=== PATIENT | male | born 1945 | race African-American/Black ===

== ENCOUNTER 2022-05-08 11:04 | Inpatient (IN) | payer MEDICARE, OTHER, SELFPAY ==
[2022-05-08] VITALS (19 sets, daily range): BP systolic 98–120; BP diastolic 54–76; PULSE 59–89; RESP 9–18; TEMP 36.6–36.7; O2SAT 95–100; BMI 25.1
--- NOTE | ~2022-05-08 | CT_ITS ---
EXAMINATION: CT brain wo con DATE: 05/08/2022 12:13 INDICATION: Seizure. TECHNIQUE: Computed tomography (CT) of the head was performed without intravenous contrast. The mA wa s adjusted according to patient size. Iterative reconstruction technique was employed. The dose-lengt h product was 605.33 mGy-cm. COMPARISON: None FINDINGS: There are old infarcts in the joce, bilateral thalami, right basal ganglia, and right inter nal capsule. There are scattered areas of low attenuation in the cerebral white matter. There is no i ntracranial hemorrhage, acute infarction, or abnormal intracranial mass lesion. The ventricles are no rmal in size. There is mild mucosal thickening in the ethmoid sinuses. The mastoid air cells are norm al. IMPRESSION: 1. Old infarcts in the joce, bilateral thalami, right basal ganglia, and right internal capsule. 2. Moderate nonspecific cerebral white matter disease, which likely represents chronic small vessel i schemic disease. Reviewed, dictated and finalized at location A. R CUP HANDLE MACHINE OPERATOR IMPRESSION: 1. Old infarcts in the joce, bilateral thalami, right basal ganglia, and right internal capsule. 2. Moderate nonspecific cerebral white matter disease, which likely represents chronic small vessel ischemic disease.
--- NOTE | ~2022-05-08 | XR_ITS ---
EXAMINATION: XR abdomen NG/feed tube insert DATE: 05/10/2022 23:55 INDICATION: Nasogastric tube placement TECHNIQUE: A supine view of the abdomen and lower chest was obtained for evaluation of feeding tube placement. COMPARISON: None. FINDINGS: There is a gastric tube tip in proximal side port in the body the stomach. There are some gas scatter ed throughout the colon. No dilated loops of gas-filled bowel to suggest obstruction. Mild streaky le ft basilar opacities and favor atelectasis over pneumonia. Heart size is normal. Median sternotomy wi res, ostial markers and mediastinal surgical clips consistent with prior coronary artery bypass graft ing. Dual lead pacemaker seen with leads projecting over the expected locations of the right atrium a nd right ventricle. IMPRESSION: 1. Nasogastric tube in the stomach. Reviewed, dictated and finalized at location A. TURE BANDER
--- NOTE | ~2022-05-08 | XR_ITS ---
EXAMINATION: XR chest 1V portable INDICATION: Transient alteration of awareness TECHNIQUE: Portable AP chest at 1159 hours COMPARISON: None available FINDINGS: The lungs are free of acute opacities. No pleural effusion or pneumothorax. The heart size is normal. Median sternotomy wires and mediastinal surgical clips are seen, likely from prior coronar y artery bypass grafting. A dual-lead cardiac pacemaker of the left chest wall ends with leads in exp ected locations. IMPRESSION: 1. No acute cardiopulmonary abnormality. Reviewed, dictated and finalized at location B. D ADVISOR
--- NOTE | ~2022-05-08 | CT_ITS ---
Non-contrast CT scan of the Abdomen and Pelvis Clinical indication: Status post fall Technique: 5 mm axial scans were obtained through the abdomen and pelvis without intravenous or oral contrast. Dose reduction technique was used on this scan by utilizing automated exposure control and iterative reconstruction technique. The dose-length product (DLP) was 320.88 mGy-cm. Findings: Images through the lung bases reveal minimal pleural fluid bilaterally with mild bibasilar atelectatic change. Probable small hepatic cyst and small calcified hepatic granulomas are noted. Calcified splenic granu baudilio also present. The kidneys, pancreas, gallbladder, and adrenals appear normal. There is no aort ic aneurysm. There is no evidence of bowel obstruction. Images through the pelvis were performed. There is no evidence of ascites or lymphadenopathy. Urinary bladder unremarkable. No pelvic mass seen. Probable small amount of loculated fluid along the course of the right spermatic cord in the right inguinal canal. There is moderate to severe compression fracture deformity of L2, which is acute in appearance. Proba ble minimal loss of height of the superior endplate of T11, age indeterminate. Impression: Acute moderate to severe L2 compression fracture. Minimal compression deformity at the superior endplate of T11, age indeterminate. Small amount of loculated fluid along the course the right spermatic cord, of uncertain clinical sign ificance. Minimal pleural fluid bilaterally. Reviewed, dictated and finalized at [facility]. OR MOBILE DEVELOPER Impression: Acute moderate to severe L2 compression fracture. Minimal compression deformity at the superior endplate of T11, age indeterminat e. Small amount of loculated fluid along the course the right spermatic cord, of u ncertain clinical significance. Minimal pleural fluid bilaterally.
--- NOTE | 2022-05-08 11:52 | ECG_ITS ---
Measurements Intervals [place] Rate: 60 P: 130 NH: 195 QRS: 49 QRSD: 101 T: 35 QT: 416 QTc: 416 Interpretive Statements ELECTRONIC ATRIAL PACEMAKER NONSPECIFIC ST ABNORMALITY ABNORMAL ECG NO PREVIOUS ECG AVAILABLE FOR COMPARISON Electronically Signed On 05-08-2022 16:21:13 LUBE MAN by Edwin Correa M.D.
[2022-05-08 12:44] LABS: Basophils Percent Auto 0.2 % (0.2-1.2); Eosinophils Absolute Auto 0.1 K/mm3 (0-0.3); Hematocrit 32.2 % (42.0-52.0); Hemoglobin 10.5 g/dL (14.0-18.0); Immature Granulocyte Absolute 0.03 K/mm3 (0.00-0.031); Immature Granulocyte Percent A 0.6 % (0-0.5); Lymphocytes Absolute Auto 0.81 K/mm3 (0.9-3.2); Lymphocytes Percent Auto 16.5 % (18.3-44.2); Mean Corpuscular HGB Conc 32.6 g/dl (32-36); Mean Corpuscular Hemoglobin 33.5 pg (26-34); Mean Corpuscular Volume 102.9 fl (80-100); Mean Platelet Volume 8.4 fl (7.4-10.4); Monocytes Absolute Auto 0.4 K/mm3 (0.1-0.6); Monocytes Percent Auto 8.7 % (2.6-8.5); Neutrophils Absolute Auto 3.5 K/mm3 (1.3-6.7); Platelet Count Result 145 k/mm3 (150-375); Red Blood Count 3.13 M/mm3 (4.6-6.20); Red Cell Distribution Width 14.1 % (11.5-14.5); White Blood Count 4.9 K/mm3 (4.5-10.0)
[2022-05-08 12:51] LABS: Lactic Acid Reflex 1.2 mmol/L (0.7-2.0)
[2022-05-08 12:52] LABS: Alanine Aminotransferase 21 U/L (6-50); Albumin Level 3.2 g/dL (3.5-5.1); Alkaline Phosphatase 109 U/L (38-126); Anion Gap -1 mmol/L (8-16); Aspartate Amino Transferase 29 U/L (17-59); Bilirubin,Total 0.4 mg/dL (0.2-1.3); Blood Urea Nitrogen 6 mg/dL (9-20); Calcium 8.4 mg/dL (8.4-10.2); Carbon Dioxide 33 mmol/L (22-30); Chloride 100 mmol/L (98-107); Estimated Glomerular Filt Rate > 60; Glucose 94 mg/dL (65-110); Magnesium 1.8 mg/dL (1.6-2.3); Potassium 3.9 mmol/L (3.4-5.0); Sodium 132 mmol/L (137-145)
[2022-05-08 12:53] LABS: Ethanol < 10 mg/dL (<10)
[2022-05-08 12:54] LABS: INR 1.1; Prothrombin Time 13.8 Seconds (11.1-14.7)
[2022-05-08 12:55] LABS: Partial Thromboplastin Time 35.2 SECONDS (22.3-36.8)
--- NOTE | 2022-05-08 13:05 | ED.GENADULT ---
HPI - General Adult General Chief complaint: Seizure <Luna Goel MD - Last Filed: 05/08/22 15:36> Stated complaint: seizure, weakness, black stool, blood penis <Luna Goel MD - Last Filed: 05/08/22 15:36> Time Seen by Provider: 05/08/22 11:35 <Luna Goel MD - Last Filed: 05/08/22 15:36> Source: patient, EMS and RN notes reviewed <Luna Goel MD - Last Filed: 05/08/22 15:36> Mode of arrival: EMS <Luna Goel MD - Last Filed: 05/08/22 15:36> Limitations: dementia <Luna Goel MD - Last Filed: 05/08/22 15:36> History of Present Illness HPI narrative: This is a 77 year old male who presents from snf for evaluation of multiple complaints. EMS reports that patient had seizure lasting 45 seconds at facility. They also report patient has weakness and nursing saw patient had small amount of blood at his urethral meatus. They also reports dark stools. Patien is alert and oriented x 3 . PAtient is poor historian . <Luna Goel MD - Last Filed: 05/08/22 15:36> This is a 77 year old male who presents from snf for evaluation of multiple complaints. EMS reports that patient had seizure lasting 45 seconds at facility. They also report patient has weakness and nursing saw patient had small amount of blood at his urethral meatus. They also reports dark stools. Patien is alert and oriented x 3 . PAtient is poor historian . I was able to speak to the snf staff who told me that the patient was sitting on a wheelchair, and during nurse practitioner evaluation patient blacked out, unresponsive, clammy, no seizure-like activities, patient was able to cannulate back slowly to normal within few seconds. Blood pressure was 88/44 at that time few minutes later blood pressure got better up to 114/70. Currently patient denying any symptoms. The noticed that the patient had black stool over the last few days, the snf staff did not see that. Patient on iron supplement. <Iona Artuhr MD - Last Filed: 05/08/22 15:44> Related Data Home medications: Home Medications Medication Instructions Recorded Confirmed docusate sodium 100 mg capsule 100 mg PO DAILY 05/03/22 donepezil 10 mg tablet 10 mg PO QHS 05/03/22 ferrous sulfate 325 mg (65 mg 325 mg PO DAILY 05/03/22 iron) tablet furosemide 40 mg tablet 40 mg PO QAM 05/03/22 levothyroxine 150 mcg capsule 150 mcg PO DAILY 05/03/22 losartan 25 mg tablet 25 mg PO DAILY 05/03/22 memantine 5 mg tablet 5 mg PO BID 05/03/22 mirabegron 50 mg tablet,extended 50 mg PO DAILY 05/03/22 release 24 hr montelukast 10 mg tablet 10 mg PO DAILY 05/03/22 oxcarbazepine 150 mg tablet 150 mg PO BID 05/03/22 potassium chloride 20 mEq oral 20 meq PO DAILY 05/03/22 packet (Klor-Con) ropinirole 1 mg tablet 1 mg PO BID 05/03/22 rosuvastatin 40 mg tablet 40 mg PO DAILY 05/03/22 tamsulosin 0.4 mg capsule 0.4 mg PO DAILY 05/03/22 valacyclovir 1 gram tablet 1,000 mg PO DAILY 05/03/22 <Luna Goel MD - Last Filed: 05/08/22 15:36> Allergies/adverse reactions: Allergies Allergy/AdvReac Type Severity Reaction Status Date / Time No Known Allergies Allergy Unverified 05/03/22 15:18 <Luna Goel MD - Last Filed: 05/08/22 15:36> Review of Systems Review of Systems: All systems reviewed & are unremarkable except as noted in HPI and below <Iona Arthur MD - Last Filed: 05/08/22 15:44> [facility] Past Medical History Medical History: Medical History (Updated 05/08/22 @ 15:37 by Iona Arthur MD) Dementia Hypertension <Luna Goel MD - Last Filed: 05/08/22 15:36> Surgical History Surgical History: Surgical History (Updated 05/08/22 @ 15:35 by Luna Goel MD) Surgical history unknown <Luna Goel MD - Last Filed: 05/08/22 15:36> Social History Social History: Social History (Reviewed 05/08/22 @ 14:34 by [facility]
[2022-05-08 13:47] LABS: Appearance Urine Clear (Clear); Bilirubin Urine Negative (Negative); Blood Urine Trace-intact (Negative); Color Urine Yellow (Yellow); Glucose Urine UA Negative (Negative); Ketones Urine Negative (Negative); Leukocyte Esterase Ur 1+ LEU/UL (Negative); Nitrate Urine Negative (Negative); Protein Urine Trace mg/dL (Negative)
[2022-05-08 13:58] LABS: Mucus Urine Rare /lpf; WBC Urine 51-75 /hpf
[2022-05-08 14:02] LABS: Amphetamine Screen Urine Negative (Negative); Barbiturate Screen Urine Negative (Negative); Benzodiazepines Screen Urine Negative (Negative); Cannabinoid Screen Urine Negative (Negative); Cocaine Screen Urine Negative (Negative); Methadone Screen Urine Negative (Negative); Opiate Screen Urine Negative (Negative); Phencyclidine Screen Urine Negative (Negative)
[2022-05-08 14:26] LABS: Add Urine Microscopic? YES
[2022-05-08 15:34] LABS: Influenza A QL RT-PCR Negative (Negative); Influenza B QL RT-PCR Negative (Negative); SARS-CoV-2 RNA PCR Negative
--- NOTE | 2022-05-08 15:58 | PC.NURSE ---
pts states she does not want to return to group home after d/c from hospital.
[2022-05-08 17:04] LABS: Hematocrit 31.3 % (42.0-52.0); Hemoglobin 10.3 g/dL (14.0-18.0)
[2022-05-08] MEDS: SODIUM CHLORIDE 0.9% IV 1,000 ML 250 ML IV CONT ×2 (17:58→20:27)
--- NOTE | 2022-05-08 22:05 | PM.IMHP ---
H&P: HPI History of Present Illness Date/Time: 05/08/22 22:05 Chief Complaint: Weakness, black stools, bloody penis, and possible seizure Narrative: This is a 77-year-old male patient who resides at [facility] and he has a very poor historian. The patient stated that he did have blood coming from his penis today. EMS reported that the patient had a seizure lasting 45 seconds at the facility. The patient stated that he has been feeling very weak. The [place] [facility] also noticed that the patient had dark stools. Is reported that the patient is typically a lower on orientated x3. However he is not able to give me much information. The patient tells me that he is at the hospital today because he had blood on his penis. ER provider spoke with the [place] [facility] staff and the patient had been sitting in a wheelchair and was seeing the nurse practitioner who evaluated the patient for the black out. The patient was unresponsive clammy and had no seizure-like activity. His blood pressure was noted to be 88/44 at that time. The noticed that the patient had black stools over the last few days however the nursing staff did not notice it. The patient is on iron supplement. Initial H&H 10.5 and 32.2 repeat H&H was 10.3 and 31.3. And the current H&H was 11.0 in 33.2. Sodium is 132. Patient had 1+ leukocyte esterase and 51-75 wbc's. The patient had a negative tox screen. Influenza A/B and COVID are negative. The patient was given Keppra IV. He was started on IV fluids and Rocephin as well. The patient is being admitted to observation status on the date of service of 05/08/2022 Review of Systems Review of Systems: See HPI All systems reviewed & are unremarkable except as noted in HPI and below Constitutional: Constitutional: Reports as per HPI and Reports no additional constitutional complaints Eyes: Eyes: Reports as per HPI and Reports no additional eye complaints ENT: Reports system reviewed and no additional complaints, except as documented and Reports Normal hearing present Cardiovascular: Cardiovascular: Reports no additional cardiovascular complaints Respiratory: Respiratory: Reports no additional respiratory complaints and Reports no additional respiratory complaints Gastrointestinal: Gastrointestinal: Reports as per HPI and Reports no additional gastrointestinal complaints Musculoskeletal: Musculoskeletal: Reports no additional musculoskeletal complaints Integumentary/Breasts: Skin/Breast: Reports system reviewed and no additional complaints, except as docu and Reports as per HPI Neurologic: Reports system reviewed and no additional complaints, except as documented, Reports as per HPI and Reports Normal hearing present Psychiatric: Psychiatric: Reports no additional psychiatric complaints and Reports as per HPI Endocrine: Endocrine: Reports no additional endocrine complaints Hematologic/Lymphatic: Hematologic/Lymphatic: Reports no additional hematologic/lymphatic complaints Allergic/Immunologic: Allergic/Immunologic: Reports no additional allergic/immunologic complaints [facility] Past Medical History Medical History (Updated 05/09/22 @ 01:47 by Praveena Vasquez NP) BPH (benign prostatic hyperplasia) Compression fracture of L2 Dementia History of CVA (cerebrovascular accident) Hyperlipidemia Hypertension Hypothyroidism Parkinson's disease Restless leg syndrome Seizure Surgical History Surgical History (Updated 05/08/22 @ 15:35 by Luna Goel MD) Surgical history unknown Family History Family History Father Myocardial infarction Social History Social History (Updated 05/09/22 @ 01:29 by Praveena Vasquez NP) Social History: The patient resides at [facility] and he is . The patient has 2 children. He is retired from the [employer]. Code status DNR Smoking status: Unknown if ever smoked Alcohol intake: never Substanc
[2022-05-08 22:27] LABS: Hematocrit 33.2 % (42.0-52.0)
[2022-05-09] VITALS (14 sets, daily range): BP systolic 70–117; BP diastolic 40–64; PULSE 58–63; RESP 16–18; TEMP 36.3–36.7; O2SAT 98–100
--- NOTE | 2022-05-09 | ECHO_ITS ---
Patient Info Name: Dago Krause Age: 77 years : 1945 Gender: Male Ht: 68 in Wt: 165 lbs BSA: 1.90 m2 HR: 60 bpm BP: 116 / 64 mmHg Heart Rhythm: Sinus Rhythm Technical Quality: Good Exam Date: 05/09/2022 2:57 PM Exam Location: [facility] Card Pulmonary Patient Status: Inpatient Admit Date: 05/08/2022 Staff Ordering Physician: Gianna Caceres MD Capacitor Repairer: Marlene Olivia RDCS Attending Provider: Matilde Damon MD Exam Type: CA echo doppler color flow Study Info Indications R55 - Syncope and collapse Complete two-dimensional, color flow and Doppler transthoracic echocardiogram is performed. Summary 1. Complete two-dimensional, color flow and Doppler transthoracic echocardiogram is performed. 2. Left ventricular chamber dimension is normal. 3. Left ventricular systolic function is normal, estimated at 65-70%. 4. There is mildly increased left ventricular wall thickness. 5. The left ventricular diastolic function is grade I diastolic dysfunction. 6. There is trace mitral valve regurgitation. 7. There is trace tricuspid valve regurgitation. Left Ventricle Left ventricular chamber dimension is normal. Left ventricular systolic function is normal, estimated at 65-70%. There is mildly increased left ventricular wall thickness. The left ventricular diastolic function is grade I diastolic dysfunction. Right Ventricle Right ventricular chamber dimension is normal. Left Atria Left atrial chamber dimension is normal. Right Atria Right atrial chamber dimension is normal. Atrial Septum Intact interatrial septum visualized by color flow imaging. Aortic Valve The aortic valve is trileaflet. There is mild aortic valve sclerosis. There is no aortic valve stenosis. There is no aortic valve regurgitation. Pulmonic Valve The pulmonic valve is not well visualized. There is no pulmonic regurgitation. Mitral Valve The mitral valve has normal leaflets. There is no mitral valve stenosis. There is trace mitral valve regurgitation. Tricuspid Valve There is no significant tricuspid valve stenosis. There is trace tricuspid valve regurgitation. Pericardium/Pleural There is no pericardial effusion. Aorta The aortic root size at the sinus of Valsalva is normal. Left Ventricular Outflow Tract Name Value Normal LVOT 2D LVOT Diameter 2.0 cm LVOT Doppler LVOT Peak Gradient 3 mmHg LVOT Mean Gradient 2 mmHg LVOT VTI 16 cm LVOT VTI/AV VTI Ratio 0.7 LVOT Stroke Volume 47 ml LVOT CO 2.8 l/min LVOT CI 1.5 l/min/m2 Pulmonic Valve Name Value Normal RVOT Doppler RVOT Peak Gradient 4 mmHg PV Doppler ---
[2022-05-09] MEDS: LEVOTHYROXINE SODIUM 75 MCG TABLET 150 MCG PO (05:48)
[2022-05-09] MEDS: SODIUM CHLORIDE 0.9% IV 1,000 ML 125 ML IV CONT (05:51)
[2022-05-09 06:06] LABS: Basophils Percent Auto 0.2 % (0.2-1.2); Eosinophils Absolute Auto 0.1 K/mm3 (0-0.3); Eosinophils Percent Auto 2.7 % (0-4.4); Hematocrit 33.4 % (42.0-52.0); Hemoglobin 10.9 g/dL (14.0-18.0); Immature Granulocyte Absolute 0.02 K/mm3 (0.00-0.031); Immature Granulocyte Percent A 0.5 % (0-0.5); Lymphocytes Percent Auto 22.5 % (18.3-44.2); Mean Corpuscular HGB Conc 32.6 g/dl (32-36); Mean Corpuscular Hemoglobin 33.1 pg (26-34); Mean Corpuscular Volume 101.5 fl (80-100); Mean Platelet Volume 8.4 fl (7.4-10.4); Monocytes Absolute Auto 0.4 K/mm3 (0.1-0.6); Monocytes Percent Auto 9.2 % (2.6-8.5); Neutrophils Absolute Auto 2.9 K/mm3 (1.3-6.7); Neutrophils Percent Auto 64.9 % (45.5-73.1); Platelet Count Result 146 k/mm3 (150-375); Red Blood Count 3.29 M/mm3 (4.6-6.20); White Blood Count 4.4 K/mm3 (4.5-10.0)
[2022-05-09 06:22] LABS: Alanine Aminotransferase 29 U/L (6-50); Alkaline Phosphatase 105 U/L (38-126); Anion Gap 0 mmol/L (8-16); Aspartate Amino Transferase 27 U/L (17-59); Bilirubin,Total 0.5 mg/dL (0.2-1.3); Blood Urea Nitrogen 5 mg/dL (9-20); Calcium 8.5 mg/dL (8.4-10.2); Carbon Dioxide 33 mmol/L (22-30); Chloride 101 mmol/L (98-107); Estimated CRCL calculation 65 ml/min; Estimated Glomerular Filt Rate > 60; Glucose 74 mg/dL (65-110); Magnesium 1.9 mg/dL (1.6-2.3); Potassium 3.7 mmol/L (3.4-5.0); Sodium 134 mmol/L (137-145)
[2022-05-09] MEDS: OXcarbazepine 150 MG TABLET PO ×2 (09:49→21:09)
[2022-05-09] MEDS: MIRABEGRON 50 MG ER TABLET PO (09:49)
[2022-05-09] MEDS: ESCITALOPRAM OXALATE 10 MG TABLET PO (09:49)
[2022-05-09] MEDS: polyethylene glycoL 3350 17 GM POWD.PACK PO (09:49)
[2022-05-09] MEDS: CARBIDOPA/LEVODOPA 10/100 MG TABLET 1 TABLET PO ×2 (09:49→17:58)
[2022-05-09] MEDS: QUEtiapine FUMARATE 12.5 MG TABLET PO (09:49)
[2022-05-09] MEDS: ASPIRIN 81 MG ENTERIC TABLET PO (09:49)
[2022-05-09] MEDS: CYANOCOBALAMIN 1,000 MCG TABLET 1000 MCG PO (09:49)
[2022-05-09] MEDS: MONTELUKAST SODIUM 10 MG TABLET PO (09:49)
[2022-05-09] MEDS: AMANTADINE HCL 100 MG CAPSULE PO (09:50)
[2022-05-09] MEDS: MEMANTINE 5 MG TABLET PO ×2 (09:50→17:58)
[2022-05-09] MEDS: rOPINIRole HCL 1 MG TABLET PO ×2 (09:50→17:59)
[2022-05-09] MEDS: CHOLECALCIFEROL 1,000 UNITS TABLET 5000 UNITS PO (09:50)
[2022-05-09] MEDS: carvediloL 3.125 MG TABLET PO ×2 (09:50→17:57)
[2022-05-09] MEDS: valACYclovir HCL 500 MG TABLET 1000 MG PO (09:51)
[2022-05-09] MEDS: ROSUVASTATIN 10 MG TABLET 40 MG PO (09:51)
[2022-05-09] MEDS: OMEGA 3 POLYUNSAT FATTY ACIDS 1 GM CAP PO ×2 (09:51→17:58)
[2022-05-09] MEDS: TAMSULOSIN HCL 0.4 MG CAPSULE PO (09:52)
[2022-05-09] MEDS: DOCUSATE SODIUM 100 MG CAPSULE PO (09:52)
[2022-05-09] MEDS: POTASSIUM CHLORIDE 20 MEQ PACKET (FOR LIQUID) PO (09:52)
[2022-05-09] MEDS: SODIUM CHLORIDE 0.9% IV 1,000 ML 75 ML IV CONT (09:54)
--- NOTE | 2022-05-09 11:51 | WPDNEURCNPN ---
Assessment and Plan Assessment and plan (1) Parkinson's disease: Code(s): G20 - Parkinson's disease Status: Acute (2) Compression fracture of L2: Code(s): S32.020A - Wedge compression fracture of second lumbar vertebra, initial encounter for closed fracture Status: Acute (3) Seizure: Code(s): R56.9 - Unspecified convulsions Status: Acute Plan history of collapse raising the possibility of general problem versus the seizure and has been found to have UTI does have ongoing history of dementia also has been taking multiple medications using a back brace for the closed lumbar vertebral fracture also carries the diagnosis of Parkinson disease for which he has been taking carbidopa levodopa at this stage I will continue same medication and obtain only the EEG and echocardiogram Consult date: 05/09/22 HPI: Dago Krause is a 77 year old male has been admitted to the hospital through the emergency room where he was transferred from the skilled nursing for the evaluation of multiple complaints particularly an episode of seizure lasting for 45seconds at the facility, his small amount of blood in the urethral meatus with dark stools and also complaints of generalized weakness, his medications were multiple particularly donepezil 10 mg at night furosemide 40 mg daily levothyroxine 150 mg micro g daily losartan 25 mg daily memantine 5 mg twice a day Myrbetriq 50 mg daily oxcarbazepine 150 mg twice a day ropinirole 1 mg twice a day initial evaluation in the emergency room revealed him to have normal vital signs routine CBC was normal except the hemoglobin was 10.5 BMP was borderline low sodium of 132 UA was mildly abnormal with 51 to 75 WBCs and leukocyte esterase of 1+ with the drug screen was negative and EKG was with electronic atrial pacemaker, CT scan of the head documented old infarct in the joce bilateral thalami right basal ganglia and right internal capsule and chest x-ray was negative Review of Systems Review of Systems: All systems reviewed & are unremarkable except as noted in HPI and below [facility] Past Medical History Medical History (Updated 05/09/22 @ 01:47 by Praveena Vasquez NP) BPH (benign prostatic hyperplasia) Compression fracture of L2 Dementia History of CVA (cerebrovascular accident) Hyperlipidemia Hypertension Hypothyroidism Parkinson's disease Restless leg syndrome Seizure Surgical History Surgical History (Updated 05/08/22 @ 15:35 by Luna Goel MD) Surgical history unknown Family History Family History Father Myocardial infarction Social History Social History (Updated 05/09/22 @ 01:29 by Praveena Vasquez NP) Social History: The patient resides at [facility] and he is . The patient has 2 children. He is retired from the [employer]. Code status DNR Smoking status: Unknown if ever smoked Alcohol intake: never Substance use: never Spiritual care concerns: No Meds Home Medications and Allergies Home Medications Medication Instructions Recorded Confirmed Type docusate sodium 100 mg capsule 100 mg PO DAILY 05/03/22 05/08/22 History donepezil 10 mg tablet 10 mg PO QHS 05/03/22 05/08/22 History ferrous sulfate 325 mg (65 mg 325 mg PO DAILY 05/03/22 05/08/22 History iron) tablet levothyroxine 150 mcg capsule 150 mcg PO DAILY 05/03/22 05/08/22 History memantine 5 mg tablet 5 mg PO BID 05/03/22 05/08/22 History mirabegron 50 mg tablet,extended 50 mg PO DAILY 05/03/22 05/08/22 History release 24 hr montelukast 10 mg tablet 10 mg PO DAILY 05/03/22 05/08/22 History oxcarbazepine 150 mg tablet 150 mg PO BID 05/03/22 05/08/22 History potassium chloride 20 mEq oral 20 meq PO DAILY 05/03/22 05/08/22 History packet (Klor-Con) ropinirole 1 mg tablet 1 mg PO BID 05/03/22 05/08/22 History rosuvastatin 40 mg tablet 40 mg PO DAILY 05/03/22 05/08/22 History tamsulosin 0.4 mg capsule 0.4
[2022-05-09] MEDS: FERROUS SULFATE 324 MG TABLET PO (12:29)
--- NOTE | 2022-05-09 12:43 | PM.IMPN ---
Progress Note: A&P Assessment and Plan (1) Hypothyroidism: Code(s): E03.9 - Hypothyroidism, unspecified Status: Acute (2) Parkinson's disease: Code(s): G20 - Parkinson's disease Status: Acute (3) Urinary tract infection: Code(s): N39.0 - Urinary tract infection, site not specified Status: Acute (4) Dementia: Code(s): F03.90 - Unspecified dementia, unspecified severity, without behavioral disturbance, psychotic disturbance, mood disturbance, and anxiety Status: Acute (5) Syncope: Code(s): R55 - Syncope and collapse Status: Acute (6) Seizure: Code(s): R56.9 - Unspecified convulsions Status: Acute Plan 77 years old M with PMH of Dementia presented with blood from penis, black colored stool, ?seizure. 1)?Seizure Episode+?Acute vs chronic Encephalopathy: Patient is very confused, ?baseline with H/o dementia Appreicate Neurology help Plan for EEG CT head showed old ischemic changes on ASA Also has likley UTI, that can cause mental status changes 2)UTI: C/w ceftriaxone Await Urine Culture 3)Black Colored Stool: H/H stable ?Acute vs chronic anemia Await fecal occult blood C/w PPI c/w iron supplement 4)?Seizure vs Syncope: Obtain echo 5)H/o Dementia: c/w Amantadine, Donepezil, Namenda 6)Hypothyroidism: TSH 50 On levothyroxine ?Non compliance with Dementia Await Free T4 7)H/o Compression Fracture: Has back brace 8)DVT ppx: Hep SQ 9)Code;DNR 10)Dispo:pending improvement Time Spent With Patient Time with patient: 25 - 35 minutes Subjective Date/time seen: 05/09/22 12:43 Interval history: patient confused, h/o dementia Review of Systems Review of Systems: ROS unobtainable: Yes unobtainable due to medical condition Exam Const: General: comfortable and no acute distress Other: back brace in situ HENMT: Mouth: Yes moist mucous membranes Eyes: Sclera: sclerae normal Neck: Neck: supple Resp: Effort & Inspection: normal respiratory effort Auscultation: clear to auscultation bilaterally and crackles Cardio: Rate: regular rate Rhythm: regular rhythm GI: GI Palp: Yes Soft to palpation Auscultation: normal bowel sounds Skin: General skin exam: normal color Extrem: General: normal to inspection Objective Data Vital Signs Vital Signs: Vital Signs - 24 hr 05/08/22 15:56 05/08/22 15:57 05/08/22 13:46 Temperature Pulse Rate 63 67 60 Respiratory Rate 11 L Blood Pressure 119/76 98/54 L Pulse Oximetry 100 05/08/22 14:16 05/08/22 14:30 05/08/22 14:54 Temperature Pulse Rate 60 60 60 Respiratory Rate 10 L 10 L 11 L Blood Pressure Pulse Oximetry 100 05/08/22 15:00 05/08/22 16:02 05/08/22 17:26 Temperature Pulse Rate 60 60 60 Respiratory Rate 12 9 L 11 L Blood Pressure 111/68 Pulse Oximetry 100 100 05/08/22 17:31 05/08/22 17:46 05/08/22 18:48 Temperature 98.1 F Pulse Rate 63 61 89 Respiratory Rate 11 L 15 16 Blood Pressure 116/69 120/73 105/65 Pulse Oximetry 95 05/08/22 21:40 05/09/22 05:24 05/08/22 20:00 Temperature 97.8 F 98.1 F Pulse Rate 59 L 58 L 60 Respiratory Rate 18 17 Blood Pressure 120/64 116/64 Pulse Oximetry 100 98 05/09/22 00:00 05/09/22 04:00 05/09/22 09:50 Temperature Pulse Rate 63 60 60 Respiratory Rate Blood Pressure Pulse Oximetry Intake/Output Intake/Output: Intake & Output 05/06/22 05/07/22 05/08/22 05/09/22 23:59 23:59 23:59 23:59 Intake Total 1050 1999 Output Total 50 Balance 1000 1999 Meds/Results Medications: Active Medications Generic Name Dose Route Start Last Admin Trade Name Freq PRN Reason Stop Dose Admin Amantadine HCl 100 mg 05/09/22 09:00 05/09/22 09:50 Amantadine Hcl 100 Mg Capsule PO 100 mg DAILY CARISSA Administration Aspirin 81 mg 05/09/22 09:00 05/09/22 09:49 Aspirin 81 Mg Enteric Tablet PO 81 mg DAILY CARSISA Administration Carbidopa/
[2022-05-09 16:04] LABS: Free T4 Free Thyroxine Reflex 0.34 ng/dL (0.78-2.19)
[2022-05-09 19:45] LABS: IFOB Positive Control Positive; Immunochemical Fecal Occult Bl Positive (N)
[2022-05-09] MEDS: HEPARIN SODIUM 5,000 UNITS/ML VIAL 5000 UNITS SUB-Q (21:08)
[2022-05-09] MEDS: DONEPEZIL HCL 10 MG TABLET PO (21:09)
[2022-05-10] VITALS (15 sets, daily range): BP systolic 100–132; BP diastolic 58–73; PULSE 59–72; RESP 18–20; TEMP 36.1–36.9; O2SAT 91–100
[2022-05-10] MEDS: SODIUM CHLORIDE 0.9% IV 1,000 ML 75 ML IV CONT ×2 (02:58→16:44)
[2022-05-10 05:09] LABS: Basophils Percent Auto 0.5 % (0.2-1.2); Eosinophils Absolute Auto 0.1 K/mm3 (0-0.3); Eosinophils Percent Auto 3.5 % (0-4.4); Hematocrit 34.4 % (42.0-52.0); Hemoglobin 11.2 g/dL (14.0-18.0); Immature Granulocyte Absolute 0.02 K/mm3 (0.00-0.031); Immature Granulocyte Percent A 0.5 % (0-0.5); Lymphocytes Absolute Auto 0.87 K/mm3 (0.9-3.2); Mean Corpuscular HGB Conc 32.6 g/dl (32-36); Mean Corpuscular Hemoglobin 32.6 pg (26-34); Mean Platelet Volume 8.5 fl (7.4-10.4); Monocytes Absolute Auto 0.4 K/mm3 (0.1-0.6); Monocytes Percent Auto 9.3 % (2.6-8.5); Neutrophils Absolute Auto 2.5 K/mm3 (1.3-6.7); Neutrophils Percent Auto 64.2 % (45.5-73.1); Platelet Count Result 159 k/mm3 (150-375); Red Blood Count 3.44 M/mm3 (4.6-6.20); Red Cell Distribution Width 13.8 % (11.5-14.5)
[2022-05-10 05:13] LABS: Anion Gap 4 mmol/L (8-16); Blood Urea Nitrogen 5 mg/dL (9-20); Calcium 8.7 mg/dL (8.4-10.2); Carbon Dioxide 29 mmol/L (22-30); Chloride 103 mmol/L (98-107); Estimated CRCL calculation 58 ml/min; Estimated Glomerular Filt Rate > 60; Glucose 90 mg/dL (65-110); Potassium 3.8 mmol/L (3.4-5.0); Sodium 136 mmol/L (137-145)
[2022-05-10] MEDS: LEVOTHYROXINE SODIUM 75 MCG TABLET 150 MCG PO (06:33)
[2022-05-10] MEDS: CHOLECALCIFEROL 1,000 UNITS TABLET 5000 UNITS PO (08:57)
[2022-05-10] MEDS: HEPARIN SODIUM 5,000 UNITS/ML VIAL 5000 UNITS SUB-Q ×2 (08:57→22:35)
[2022-05-10] MEDS: rOPINIRole HCL 1 MG TABLET PO ×2 (08:57→16:40)
[2022-05-10] MEDS: POTASSIUM CHLORIDE 20 MEQ PACKET (FOR LIQUID) PO (08:57)
[2022-05-10] MEDS: CYANOCOBALAMIN 1,000 MCG TABLET 1000 MCG PO (08:57)
[2022-05-10] MEDS: OXcarbazepine 150 MG TABLET PO ×2 (08:57→22:35)
[2022-05-10] MEDS: ASPIRIN 81 MG ENTERIC TABLET PO (08:57)
[2022-05-10] MEDS: valACYclovir HCL 500 MG TABLET 1000 MG PO (08:57)
[2022-05-10] MEDS: TAMSULOSIN HCL 0.4 MG CAPSULE PO (08:57)
[2022-05-10] MEDS: polyethylene glycoL 3350 17 GM POWD.PACK PO (08:57)
[2022-05-10] MEDS: CARBIDOPA/LEVODOPA 10/100 MG TABLET 1 TABLET PO ×2 (08:58→16:40)
[2022-05-10] MEDS: MIRABEGRON 50 MG ER TABLET PO (08:58)
[2022-05-10] MEDS: QUEtiapine FUMARATE 12.5 MG TABLET PO (08:58)
[2022-05-10] MEDS: OMEGA 3 POLYUNSAT FATTY ACIDS 1 GM CAP PO ×2 (08:58→16:40)
[2022-05-10] MEDS: carvediloL 3.125 MG TABLET PO ×2 (08:58→16:40)
[2022-05-10] MEDS: MEMANTINE 5 MG TABLET PO ×2 (08:59→16:40)
[2022-05-10] MEDS: ROSUVASTATIN 10 MG TABLET 40 MG PO (08:59)
[2022-05-10] MEDS: AMANTADINE HCL 100 MG CAPSULE PO (08:59)
[2022-05-10] MEDS: DOCUSATE SODIUM 100 MG CAPSULE PO (08:59)
[2022-05-10] MEDS: MONTELUKAST SODIUM 10 MG TABLET PO (09:00)
[2022-05-10] MEDS: ESCITALOPRAM OXALATE 10 MG TABLET PO (09:00)
[2022-05-10] MEDS: FERROUS SULFATE 324 MG TABLET PO (12:18)
--- NOTE | 2022-05-10 14:56 | PM.IMPN ---
Progress Note: A&P Assessment and Plan (1) Hypothyroidism: Code(s): E03.9 - Hypothyroidism, unspecified Status: Acute (2) Parkinson's disease: Code(s): G20 - Parkinson's disease Status: Acute (3) Urinary tract infection: Code(s): N39.0 - Urinary tract infection, site not specified Status: Acute (4) Dementia: Code(s): F03.90 - Unspecified dementia, unspecified severity, without behavioral disturbance, psychotic disturbance, mood disturbance, and anxiety Status: Acute (5) Syncope: Code(s): R55 - Syncope and collapse Status: Acute (6) Seizure: Code(s): R56.9 - Unspecified convulsions Status: Acute Plan 77 years old M with PMH of Dementia presented with blood from penis, black colored stool, ?seizure. #?Seizure Episode+?Acute vs chronic Encephalopathy: Reported seizure-like episode lasted for/2nd the facility. According to record he went unresponsive and clammy with blood pressure 88/40. has also noticed block: 5 today. Patient confused on presentation, ?baseline with H/o dementia patient is started Keppra in the ER. Drug screen was negative in the ER chest x-ray negative Neurology consulted Plan for EEG CT head showed old ischemic changes on ASA Also has likley UTI, that can cause mental status changes treated with ceftriaxone Echo 05/09/2022 EF 65-70% mildly increased left ventricular wall thickness grade 1 diastolic dysfunction no significant valvular abnormality # UTI: C/w ceftriaxone Urine culture with 10 K to 49 K Proteus mirabilis Will switch to amoxicillin # Black Colored Stool: H/H stable ?Acute vs chronic anemia. H&H remained stable without any further drop. FOBT comes back positive C/w PPI c/w iron supplement #?Seizure vs Syncope: Echo reviewed EEG pending 5)H/o Dementia: c/w Amantadine, Donepezil, Namenda # Hypothyroidism: TSH 50 On levothyroxine ?Non compliance with Dementia Await Free T4 # H/o Compression Fracture from fall in March 29, 2022: Has back brace # DVT ppx: Hep SQ # Code;DNR # Dispo:pending improvement. Comes from [facility] Subjective Date/time seen: 05/10/22 14:56 Feels okay. Denies any complaints. Still a bit confused. No abdominal pain nausea vomiting. Trying to eat. Review of Systems Review of Systems: All systems reviewed & are unremarkable except as noted in HPI and below Exam Narrative: General appearance: Well-developed, well-nourished Skin: Normal color Head: Normocephalic, nontraumatic Eyes: Clear conjunctiva ENT: Oropharynx normal, ears normal, nose normal Neck: Supple, nontender Chest and respiratory: Airway patent, no respiratory distress, no accessory muscle use Heart: Regular rate/rhythm Abdomen: Could not be examined due to for thoraco lumbar brace Vascular: Normal peripheral pulses, normal capillary refill. 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, no gross motor deficit Objective Data Vital Signs Vital Signs: Vital Signs - 24 hr 05/09/22 16:10 05/09/22 16:00 05/09/22 17:57 Temperature 98.0 F Pulse Rate 60 60 60 Respiratory Rate 16 Blood Pressure 104/62 Pulse Oximetry 100 Pulse Oximetry [With Activity During Therapy Session] Oxygen Delivery 05/09/22 19:02 05/09/22 19:04 05/09/22 19:07 Temperature Pulse Rate Respiratory Rate Blood Pressure 102/49 L 117/40 L 70/50 L Pulse Oximetry Pulse Oximetry [With Activity During Therapy Session] Oxygen Delivery 05/09/22 21:55 05/10/22 03:08 05/09/22 20:00 Temperature 97.3 F L 97.0 F L Pulse Rate 60 61 60 Respiratory Rate 18 18 Blood Pressure 104/56 L 125/68 Pulse Oximetry 98 96 Pulse Oximetry [With Activity During Therapy Session] Oxygen Delivery 05/10/22 00:00 05/10/22 04:00 05/10/22 08:58 Temperature Pulse Rate 60 60 60 Respiratory Rate Blood Pressure Pulse Oxime
[2022-05-10] MEDS: AMOXICILLIN 500 MG CAPSULE PO ×2 (16:40→22:36)
--- NOTE | 2022-05-10 16:49 | WPDGICN ---
Assessment and Plan Assessment and plan (1) Occult blood in stools: Code(s): R19.5 - Other fecal abnormalities Status: Acute Assessment and Plan: Patient found to have occult blood in stool. Only mildly anemic. No obvious visible blood noted. Dark stools likely related to iron replacement. Plan for colonoscopy an EGD to exclude organic disease. Hopefully this can be performed while an inpatient. (2) Urinary tract infection: Code(s): N39.0 - Urinary tract infection, site not specified Status: Acute (3) Dementia: Code(s): F03.90 - Unspecified dementia, unspecified severity, without behavioral disturbance, psychotic disturbance, mood disturbance, and anxiety Status: Acute (4) Parkinson's disease: Code(s): G20 - Parkinson's disease Status: Acute (5) Lumbar stenosis: Code(s): M48.061 - Spinal stenosis, lumbar region without neurogenic claudication Status: Acute (6) Hematuria: Code(s): R31.9 - Hematuria, unspecified Status: Acute GI Consult Note Consult date/time: 05/10/22 16:49 Reason for consult: Occult blood in stool HPI: Dago Krause is a 77 year old male I am asked to see because of occult blood in stool. Patient has a history of dementia. Is a custodial patient. He was sent to the ER because of multiple complaints. Has a history of a fall and wears a back brace. Patient sent to the emergency room and was found to have urinary tract infection. in the emergency room blood was noted at the tip of his penis. Stool was Hemoccult negative. After admission the hospital reported having seen dark stools. (Patient is on iron.) Patient had stool Hemoccult repeated found to be positive. For this reason I have been consulted. Patient himself denies any obvious blood in his stools. Review of Systems Review of Systems: ROS unobtainable: Yes unobtainable due to mental status PMFSH Past Medical History Medical History (Updated 05/10/22 @ 16:[address] Santos MD) BPH (benign prostatic hyperplasia) Compression fracture of L2 Dementia History of CVA (cerebrovascular accident) Hyperlipidemia Hypertension Hypothyroidism Lumbar spondylosis Lumbar stenosis Parkinson's disease Restless leg syndrome Seizure Surgical History Surgical History (Updated 05/08/22 @ 15:35 by Luna Goel MD) Surgical history unknown Family History Family History Father Myocardial infarction Social History Social History (Updated 05/09/22 @ 01:29 by Praveena Vasquez NP) Social History: The patient resides at [facility] and he is . The patient has 2 children. He is retired from the [employer]. Code status DNR Smoking status: Never smoker Alcohol intake: never Substance use: never Spiritual care concerns: No Meds Home Medications and Allergies Home Medications Medication Instructions Recorded Confirmed Type docusate sodium 100 mg capsule 100 mg PO DAILY 05/03/22 05/08/22 History donepezil 10 mg tablet 10 mg PO QHS 05/03/22 05/08/22 History ferrous sulfate 325 mg (65 mg 325 mg PO DAILY 05/03/22 05/08/22 History iron) tablet levothyroxine 150 mcg capsule 150 mcg PO DAILY 05/03/22 05/08/22 History memantine 5 mg tablet 5 mg PO BID 05/03/22 05/08/22 History mirabegron 50 mg tablet,extended 50 mg PO DAILY 05/03/22 05/08/22 History release 24 hr montelukast 10 mg tablet 10 mg PO DAILY 05/03/22 05/08/22 History oxcarbazepine 150 mg tablet 150 mg PO BID 05/03/22 05/08/22 History potassium chloride 20 mEq oral 20 meq PO DAILY 05/03/22 05/08/22 History packet (Klor-Con) ropinirole 1 mg tablet 1 mg PO BID 05/03/22 05/08/22 History rosuvastatin 40 mg tablet 40 mg PO DAILY 05/03/22 05/08/22 History tamsulosin 0.4 mg capsule 0.4 mg PO DAILY 05/03/22 05/08/22 History valacyclovir 1 gram tablet 1,000 mg PO DAILY 05/03/22 05/08/22 History a
[2022-05-10] MEDS: PEG (High)/E-LYTE SOLN 4,000 ML BTL 4000 ML PO (17:24)
[2022-05-10] MEDS: DONEPEZIL HCL 10 MG TABLET PO (22:36)
--- NOTE | 2022-05-10 23:24 | PC.NURSE ---
RON Stewart states consent for EGD/colonoscopy and gives consent to place NG tube if necessary for bowel prep admin.
[2022-05-11] VITALS (23 sets, daily range): BP systolic 98–164; BP diastolic 59–86; PULSE 49–81; RESP 13–20; TEMP 36.1–36.9; O2SAT 91–100
--- NOTE | 2022-05-11 00:18 | PC.NURSE ---
NG placement confirmed, bowel prep administered 240ml q30min per order via syringe starting at 0010
--- NOTE | 2022-05-11 02:54 | PC.NURSE ---
Patient found down on right buttock seconds after chair alarm set off. This nurse and PCT were approaching room just before the sound of fall occurred. Patient has been receiving bowel prep and was attempting to transfer to [facility]. This nurse had been in room a few minutes prior to fall to administer more prep via NG tube, patient was asked multiple times if he needed to use the commode and stated he did not. Vital signs are stable at time of incident, patient denies any pain to lower extremity and denies head trauma. Pt has back brace in place from previous fall and lumbar fracture, patient denies any pain in back at time of incident. Hospitalist was notified and order for pelvic CT received. cytology supervisor notifed. Spouse Pat (POA) notified of fall and patient condition and all questions answered.
[2022-05-11] MEDS: AMOXICILLIN 500 MG CAPSULE PO ×3 (04:47→22:54)
[2022-05-11] MEDS: LEVOTHYROXINE SODIUM 75 MCG TABLET 150 MCG PO (04:47)
[2022-05-11 05:24] LABS: Basophils Percent Auto 0.2 % (0.2-1.2); Eosinophils Absolute Auto 0.1 K/mm3 (0-0.3); Eosinophils Percent Auto 2.5 % (0-4.4); Hematocrit 34.3 % (42.0-52.0); Hemoglobin 11.4 g/dL (14.0-18.0); Immature Granulocyte Absolute 0.02 K/mm3 (0.00-0.031); Immature Granulocyte Percent A 0.4 % (0-0.5); Lymphocytes Absolute Auto 1.04 K/mm3 (0.9-3.2); Lymphocytes Percent Auto 23.4 % (18.3-44.2); Mean Corpuscular HGB Conc 33.2 g/dl (32-36); Mean Corpuscular Hemoglobin 33.4 pg (26-34); Mean Corpuscular Volume 100.6 fl (80-100); Mean Platelet Volume 8.3 fl (7.4-10.4); Monocytes Absolute Auto 0.5 K/mm3 (0.1-0.6); Monocytes Percent Auto 10.3 % (2.6-8.5); Neutrophils Absolute Auto 2.8 K/mm3 (1.3-6.7); Neutrophils Percent Auto 63.2 % (45.5-73.1); Platelet Count Result 172 k/mm3 (150-375); Red Blood Count 3.41 M/mm3 (4.6-6.20); White Blood Count 4.5 K/mm3 (4.5-10.0)
[2022-05-11 05:40] LABS: Alanine Aminotransferase 35 U/L (6-50); Albumin Level 3.5 g/dL (3.5-5.1); Alkaline Phosphatase 110 U/L (38-126); Anion Gap 4 mmol/L (8-16); Aspartate Amino Transferase 39 U/L (17-59); Bilirubin,Total 0.6 mg/dL (0.2-1.3); Blood Urea Nitrogen 4 mg/dL (9-20); Calcium 8.2 mg/dL (8.4-10.2); Carbon Dioxide 30 mmol/L (22-30); Chloride 100 mmol/L (98-107); Estimated CRCL calculation 65 ml/min; Estimated Glomerular Filt Rate > 60; Glucose 108 mg/dL (65-110); Magnesium 1.8 mg/dL (1.6-2.3); Potassium 3.6 mmol/L (3.4-5.0); Sodium 134 mmol/L (137-145)
--- NOTE | 2022-05-11 06:03 | PC.NURSE ---
Bowel prep completed at 0300, BMs clear, NG removed at 0300.
[2022-05-11] MEDS: SODIUM CHLORIDE 0.9% IV 1,000 ML 75 ML IV CONT (06:04)
[2022-05-11] MEDS: ESCITALOPRAM OXALATE 10 MG TABLET PO (09:10)
[2022-05-11] MEDS: TAMSULOSIN HCL 0.4 MG CAPSULE PO (09:10)
[2022-05-11] MEDS: rOPINIRole HCL 1 MG TABLET PO ×2 (09:10→16:25)
[2022-05-11] MEDS: AMANTADINE HCL 100 MG CAPSULE PO (09:10)
[2022-05-11] MEDS: QUEtiapine FUMARATE 12.5 MG TABLET PO (09:10)
[2022-05-11] MEDS: carvediloL 3.125 MG TABLET PO ×2 (09:10→16:24)
[2022-05-11] MEDS: OXcarbazepine 150 MG TABLET PO ×2 (09:10→20:20)
[2022-05-11] MEDS: CARBIDOPA/LEVODOPA 10/100 MG TABLET 1 TABLET PO ×2 (09:10→16:24)
--- NOTE | 2022-05-11 11:25 | WPDANESEPPF ---
Anes - Initial Pre Proc Eval Procedure: Operation Date: 05/11/22 12:30 Proposed Procedures p Esophagogastroduodenoscopy & Colonoscopy - Lane Santos MD Date/Time: 05/11/22 11:25 Surgeon: Matilde Damon MD Pre Op Diagnosis: Orthostatic Hypotension/Urinary Tract Infection/Hy Patient Data Age: 77 Gender: M Height: 1.73 m Weight: 75 kg Last Vital Signs Temp 36.6 C 05/11/22 05:32 Pulse 63 05/11/22 05:32 Resp 17 05/11/22 05:32 BP 130/60 05/11/22 05:32 Pulse Ox 98 05/11/22 05:32 O2 Del Method Room Air 05/10/22 10:45 Allergies Allergy/AdvReac Type Severity Reaction Status Date / Time No Known Allergies Allergy Unverified 05/11/22 11:21 Home Medications Medication Instructions Recorded Confirmed Type docusate sodium 100 mg capsule 100 mg PO DAILY 05/03/22 05/08/22 History donepezil 10 mg tablet 10 mg PO QHS 05/03/22 05/08/22 History ferrous sulfate 325 mg (65 mg 325 mg PO DAILY 05/03/22 05/08/22 History iron) tablet levothyroxine 150 mcg capsule 150 mcg PO DAILY 05/03/22 05/08/22 History memantine 5 mg tablet 5 mg PO BID 05/03/22 05/08/22 History mirabegron 50 mg tablet,extended 50 mg PO DAILY 05/03/22 05/08/22 History release 24 hr montelukast 10 mg tablet 10 mg PO DAILY 05/03/22 05/08/22 History oxcarbazepine 150 mg tablet 150 mg PO BID 05/03/22 05/08/22 History potassium chloride 20 mEq oral 20 meq PO DAILY 05/03/22 05/08/22 History packet (Klor-Con) ropinirole 1 mg tablet 1 mg PO BID 05/03/22 05/08/22 History rosuvastatin 40 mg tablet 40 mg PO DAILY 05/03/22 05/08/22 History tamsulosin 0.4 mg capsule 0.4 mg PO DAILY 05/03/22 05/08/22 History valacyclovir 1 gram tablet 1,000 mg PO DAILY 05/03/22 05/08/22 History amantadine HCl 100 mg capsule 100 mg PO DAILY 05/08/22 05/08/22 History aspirin 81 mg tablet,delayed 81 mg PO DAILY 05/08/22 05/08/22 History release carbidopa 10 mg-levodopa 100 mg 1 tablet PO BID 05/08/22 05/08/22 History disintegrating tablet carvedilol 6.25 mg tablet 3.125 mg PO BID 05/08/22 05/08/22 History cholecalciferol (vitamin D3) 125 5,000 unit PO DAILY 05/08/22 05/08/22 History mcg (5,000 unit) capsule cyanocobalamin (vitamin B-12) 1,000 mcg PO DAILY 05/08/22 05/08/22 History 1,000 mcg capsule escitalopram oxalate 10 mg tablet 10 mg PO DAILY 05/08/22 05/08/22 History omega-3 acid ethyl esters 1 gram 1 cap PO BID 05/08/22 05/08/22 History capsule polyethylene glycol 3350 17 gram 17 g PO DAILY 05/08/22 05/08/22 History oral powder packet (Miralax) quetiapine 25 mg tablet 12.5 mg PO DAILY 05/08/22 05/08/22 History tolterodine 2 mg capsule,extended 2 mg PO DAILY 05/08/22 05/08/22 History release 24 hr Laboratory Tests 05/11/22 05/11/22 04:56 04:56 WBC 4.5 K/mm3 K/mm3 (4.5-10.0) RBC 3.41 M/mm3 L M/mm3 (4.6-6.20) Hgb 11.4 g/dL L g/dL (14.0-18.0) Hct 34.3 % L % (42.0-52.0) MCV 100.6 fl H fl (80-100) MCH 33.4 pg pg (26-34) MCHC 33.2 g/dl g/dl (32-36) RDW 14.0 % % (11.5-14.5) Plt Count 172 k/mm3 k/mm3 (150-375) MPV 8.3 fl fl (7.4-10.4) Immature Gran % (Auto) 0.4 % % (0-0.5) Neut % (Auto) 63.2 % % (45.5-73.1) Lymph % (Auto) 23.4 % % (18.3-44.2) [place] % (Auto) 10.3 % H % (2.6-8.5) Eos % (Auto) 2.5 % % (0-4.4) Baso % (Auto) 0.2 % % (0.2-1.2) Lymph # (Auto) 1.04 K/mm3 K/mm3 (0.9-3.2) [place] # (Auto) 0.5 K/mm3 K/mm3 (0.1-0.6) Eos # (Auto) 0.1 K/mm3 K/mm3 (0-0.3) Baso # (Auto) 0.0 K/mm3 K/mm3 (0.0-0.1) Abs Immat Gran (auto) 0.02 K/mm3 K/mm3 (0.00-0.031) Absolute Neuts (auto) 2.8 K/mm3 K/mm3 (1.3-6.7) Absolute Nucleated RBC 0.0 K/mm3 K/mm3 (0.0-0.012) Nucleated RBC % 0.0 % % (0.0-0.2) Sodium 134 mmol/L L mmol/L (137-145) Potassium 3.6 mmol/L mmol/L (3.4-5.0) Chloride 100 mmol/L mmol/L (98-107)
[2022-05-11] MEDS: LACTATED RINGERS 1,000 ML 150 ML IV CONT (11:29)
--- NOTE | 2022-05-11 11:58 | SUR.OPER ---
EGD ENDED 1151 PT TURNED/ REPOSITIONED DR BROWN STEPPED OUT OF ROOM TO SPEAK WITH DR MOLINA, COLONOSCOPY STARTED 1200
--- NOTE | 2022-05-11 12:46 | WPDNEUROLOGY ---
Neurology EEG Report General Information Date of Study: 05/10/22 TEST eeg DIAGNOSIS seizure-like activity CONDITION OF RECORDING awake and drowsy EEG NUMBER 23-33 CLINICAL HISTORY patient is somewhat confused and unable to give any history and the EEG has been ordered because of the seizure-like activity EEG DESCRIPTION low-voltage 15 to 18 hertz per 2nd beta activity seen admixed with waxing and waning bihemispheric symmetrical sleep activity with poor anterior-posterior gradient and admixed with 3 to 4 hertz per 2nd intermittent delta activity. non paroxysmal. Nonfocal. IMPRESSION Abnormal record due to the presence of bihemispheric slow activity without any paroxysmal discharge could be compatible with organic or metabolic encephalopathy or postictal state clinical correlation recommended.
--- NOTE | 2022-05-11 12:49 | PC.NURSE ---
Patient returned from GI lab per stretcher 05/11/22 [id number].
[2022-05-11] MEDS: valACYclovir HCL 500 MG TABLET 1000 MG PO (12:51)
[2022-05-11] MEDS: POTASSIUM CHLORIDE 20 MEQ PACKET (FOR LIQUID) PO (12:51)
[2022-05-11] MEDS: MEMANTINE 5 MG TABLET PO ×2 (12:52→16:25)
[2022-05-11] MEDS: CHOLECALCIFEROL 1,000 UNITS TABLET 5000 UNITS PO (12:52)
[2022-05-11] MEDS: FERROUS SULFATE 324 MG TABLET PO (12:52)
[2022-05-11] MEDS: ROSUVASTATIN 10 MG TABLET 40 MG PO (12:52)
[2022-05-11] MEDS: OMEGA 3 POLYUNSAT FATTY ACIDS 1 GM CAP PO ×2 (12:52→16:24)
[2022-05-11] MEDS: MIRABEGRON 50 MG ER TABLET PO (12:53)
[2022-05-11] MEDS: CYANOCOBALAMIN 1,000 MCG TABLET 1000 MCG PO (12:54)
[2022-05-11] MEDS: MONTELUKAST SODIUM 10 MG TABLET PO (12:54)
[2022-05-11] MEDS: ASPIRIN 81 MG ENTERIC TABLET PO (12:54)
--- NOTE | 2022-05-11 13:34 | PCOTNOTE ---
Attempted to see patient three times this date. First attempt, patient was off floor for colonoscopy. Second attempt, patient was just getting back from testing. Third attempt, patient was eating lunch.
--- NOTE | 2022-05-11 14:35 | PM.IMPN ---
Progress Note: A&P Assessment and Plan (1) Hypothyroidism: Code(s): E03.9 - Hypothyroidism, unspecified Status: Acute (2) Parkinson's disease: Code(s): G20 - Parkinson's disease Status: Acute (3) Urinary tract infection: Code(s): N39.0 - Urinary tract infection, site not specified Status: Acute (4) Dementia: Code(s): F03.90 - Unspecified dementia, unspecified severity, without behavioral disturbance, psychotic disturbance, mood disturbance, and anxiety Status: Acute (5) Syncope: Code(s): R55 - Syncope and collapse Status: Acute (6) Seizure: Code(s): R56.9 - Unspecified convulsions Status: Acute Plan 77 years old M with PMH of Dementia presented with blood from penis, black colored stool, ?seizure. #?Seizure Episode+?Acute vs chronic Encephalopathy: Reported seizure-like episode lasted for/2nd the facility. According to record he went unresponsive and clammy with blood pressure 88/40. has also noticed block: 5 today. Patient confused on presentation, ?baseline with H/o dementia patient is started Keppra in the ER. Drug screen was negative in the ER chest x-ray negative Neurology consulted EEG with slow activity without any paroxysmal discahrge compatible with organic or metabolic encephalopathy or postictal state. CT head showed old ischemic changes on ASA Also has likley UTI, that can cause mental status changes treated with ceftriaxone Echo 05/09/2022 EF 65-70% mildly increased left ventricular wall thickness grade 1 diastolic dysfunction no significant valvular abnormality # UTI: C/w ceftriaxone Urine culture with 10 K to 49 K Proteus mirabilis switched to amoxicillin # Black Colored Stool: H/H stable ?Acute vs chronic anemia. H&H remained stable without any further drop. FOBT comes back positive C/w PPI c/w iron supplement GI consulted. status post EGD and colonscopy: EGD: normal colonoscpy: multiple small size uncomplicated internal hemorroids in rectum with stigmata of bleeding. a single superficial 3 mm ulcer in rectum at a depth of 1 cm from the anus. #?Seizure vs Syncope: Echo reviewed EEG reiwed 5)H/o Dementia: c/w Amantadine, Donepezil, Namenda # Hypothyroidism: TSH 50 On levothyroxine ?Non compliance with Dementia Await Free T4 # H/o Compression Fracture from fall in March 29, 2022: Has back brace # DVT ppx: Hep SQ # Code;DNR # Dispo:pending improvement. Comes from [facility] Subjective Date/time seen: 05/11/22 14:35 Interval history: herb had a fall last night, ct reviewed. he underwent egd and colonoscpy this afternoon. no nausea, vomting. he remains confused today. Review of Systems Review of Systems: All systems reviewed & are unremarkable except as noted in HPI and below Exam Narrative: General appearance: Well-developed, well-nourished Skin: Normal color Head: Normocephalic, nontraumatic Eyes: Clear conjunctiva ENT: Oropharynx normal, ears normal, nose normal Neck: Supple, nontender Chest and respiratory: Airway patent, no respiratory distress, no accessory muscle use Heart: Regular rate/rhythm Abdomen: Could not be examined due to for thoraco lumbar brace Vascular: Normal peripheral pulses, normal capillary refill. 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
[2022-05-11] MEDS: DONEPEZIL HCL 10 MG TABLET PO (20:20)
[2022-05-11] MEDS: HEPARIN SODIUM 5,000 UNITS/ML VIAL 5000 UNITS SUB-Q (20:20)
[2022-05-12] VITALS (12 sets, daily range): BP systolic 102–140; BP diastolic 55–74; PULSE 60–91; RESP 16; TEMP 36.6–36.9; O2SAT 95–100
[2022-05-12] MEDS: SODIUM CHLORIDE 0.9% IV 1,000 ML 75 ML IV CONT (02:03)
[2022-05-12 05:18] LABS: Basophils Percent Auto 0.5 % (0.2-1.2); Eosinophils Absolute Auto 0.1 K/mm3 (0-0.3); Eosinophils Percent Auto 3.2 % (0-4.4); Hematocrit 31.1 % (42.0-52.0); Hemoglobin 10.3 g/dL (14.0-18.0); Immature Granulocyte Absolute 0.01 K/mm3 (0.00-0.031); Immature Granulocyte Percent A 0.3 % (0-0.5); Lymphocytes Percent Auto 23.7 % (18.3-44.2); Mean Corpuscular HGB Conc 33.1 g/dl (32-36); Mean Corpuscular Hemoglobin 33.2 pg (26-34); Mean Corpuscular Volume 100.3 fl (80-100); Mean Platelet Volume 8.2 fl (7.4-10.4); Monocytes Absolute Auto 0.5 K/mm3 (0.1-0.6); Monocytes Percent Auto 11.8 % (2.6-8.5); Neutrophils Absolute Auto 2.3 K/mm3 (1.3-6.7); Neutrophils Percent Auto 60.5 % (45.5-73.1); Platelet Count Result 143 k/mm3 (150-375); White Blood Count 3.8 K/mm3 (4.5-10.0)
[2022-05-12 05:26] LABS: Alanine Aminotransferase 26 U/L (6-50); Alkaline Phosphatase 101 U/L (38-126); Anion Gap 0 mmol/L (8-16); Aspartate Amino Transferase 28 U/L (17-59); Bilirubin,Total 0.5 mg/dL (0.2-1.3); Blood Urea Nitrogen 3 mg/dL (9-20); Calcium 8.5 mg/dL (8.4-10.2); Carbon Dioxide 32 mmol/L (22-30); Chloride 102 mmol/L (98-107); Estimated CRCL calculation 58 ml/min; Estimated Glomerular Filt Rate > 60; Glucose 83 mg/dL (65-110); Magnesium 1.7 mg/dL (1.6-2.3); Potassium 3.5 mmol/L (3.4-5.0); Sodium 134 mmol/L (137-145)
[2022-05-12] MEDS: LEVOTHYROXINE SODIUM 75 MCG TABLET 150 MCG PO (06:25)
[2022-05-12] MEDS: AMOXICILLIN 500 MG CAPSULE PO ×3 (06:25→21:03)
--- NOTE | 2022-05-12 07:25 | WPDGIPROGNO ---
Progress Note: A&P Assessment and Plan (1) Rectal ulcer: Code(s): K62.6 - Ulcer of anus and rectum Status: Acute Assessment and Plan: Superficial rectal ulcer consistent with benign stercal ulcer primary treatment is stool softeners and maintaining bowel regularity. Recommend MiraLax daily if needed and perhaps Metamucil daily. No additional therapy felt warranted at this time. (2) Internal hemorrhoids without complication: Code(s): K64.8 - Other hemorrhoids Status: Acute Assessment and Plan: Fiber supplement such as Metamucil would be helpful. The appearance of hemorrhoids suggest these may be source of occult blood loss. No significant bleeding anticipated. No additional therapy felt warranted. Subjective Date/time seen: 05/12/22 07:25 Interval history: Patient alert, at baseline. No obvious bleeding reported. No significant abdominal pain. Bowel habits appear improved. Review of Systems Review of Systems: Review of systems is noncontributory. Exam Narrative: Physical exam reveals patient be alert comfortable at rest. Vital signs are stable. Lungs are clear. Abdomen soft nontender. Objective Data Vital Signs Vital Signs: Vital Signs - 24 hr 05/11/22 11:24 05/11/22 08:00 05/11/22 12:15 Temperature 97 F L Pulse Rate 61 60 60 Respiratory Rate 20 13 Blood Pressure 106/69 132/62 Pulse Oximetry 99 100 Oxygen Delivery Room Air Room Air 05/11/22 12:25 05/11/22 12:35 05/11/22 12:04 Temperature Pulse Rate 60 60 60 Respiratory Rate 13 18 Blood Pressure 141/73 H 164/69 H Pulse Oximetry 100 100 Oxygen Delivery Room Air Room Air 05/11/22 16:24 05/11/22 16:00 05/11/22 14:54 Temperature 97.7 F Pulse Rate 60 60 62 Respiratory Rate 18 Blood Pressure 116/86 Pulse Oximetry 95 Oxygen Delivery 05/11/22 17:10 05/11/22 17:14 05/11/22 17:16 Temperature Pulse Rate 67 67 72 Respiratory Rate Blood Pressure 117/61 115/61 106/64 Pulse Oximetry Oxygen Delivery 05/11/22 20:00 05/11/22 23:08 05/11/22 23:08 Temperature 98.4 F Pulse Rate 60 Respiratory Rate 16 Blood Pressure 114/61 114/61 Pulse Oximetry 97 Oxygen Delivery Room Air 05/11/22 23:14 05/11/22 23:18 05/11/22 20:00 Temperature Pulse Rate 60 Respiratory Rate Blood Pressure 113/59 L 108/66 Pulse Oximetry Oxygen Delivery 05/12/22 00:00 05/12/22 04:00 05/12/22 06:26 Temperature 98.2 F Pulse Rate 60 60 91 Respiratory Rate 16 Blood Pressure 140/74 Pulse Oximetry 95 Oxygen Delivery Intake/Output Intake/Output: Intake & Output 05/09/22 05/10/22 05/11/22 05/12/22 23:59 23:59 23:59 23:59 Intake Total 2320 4770 2450 1300 Output Total 1000 Balance 2320 4770 2450 300 Meds/Results Medications: Active Medications Generic Name Dose Route Start Last Admin Trade Name Oliverioq PRN Reason Stop Dose Admin Amantadine HCl 100 mg 05/09/22 09:00 05/11/22 09:10 Amantadine Hcl 100 Mg Capsule PO 100 mg DAILY CARISSA Administration Amoxicillin 500 mg 05/10/22 15:05 05/12/22 06:25 Amoxicillin 500 Mg Capsule PO 05/16/22 06:01 500 mg Q8HR CARISSA Administration Aspirin 81 mg 05/09/22 09:00 05/11/22 12:54 Aspirin 81 Mg Enteric Tablet PO 81 mg DAILY CARISSA Administration Carbidopa/Levodopa 1 tablet 05/09/22 08:00 05/11/22 16:24 Carbidopa/Levodopa 10/100 Mg Tablet PO 1 tablet BIDWM CARISSA Administration Carvedilol 3.125 mg 05/09/22 08:00 05/11/22 16:24 Carvedilol 3.125 Mg Tablet PO 3.125 mg BIDWM CARISSA Administration Cyanocobalamin 1,000 mcg 05/09/22 09:00 05/11/22 12:54 Cyanocobalamin 1,000 Mcg Tablet PO 1,000 mcg DAILY CARISSA Administration Docusate Sodium 100 mg 05/09/22 09:00 05/11/22 12:57 Docusate Sodium 100 Mg Capsule PO Not Given DAILY [facility] Donepezil HCl 10 mg 05/09/22 21:00 05/11/22 20:20 Donepezil Hcl 10 Mg Tablet PO 10 mg QHS [facility]
--- NOTE | 2022-05-12 09:25 | WPDANESPN ---
Anes - Prog Note Post-Op Date/Time: 05/12/22 09:25 Cardiovascular status: normal Respiratory status: normal Airway patency: baseline Mental status: baseline Post-Op hydration status: normal Vital Signs: Last Vital Signs Temp 98.2 F 05/12/22 06:26 Pulse 91 05/12/22 06:26 Resp 16 05/12/22 06:26 BP 140/74 05/12/22 06:26 Pulse Ox 95 05/12/22 06:26 O2 Del Method Room Air 05/12/22 08:18 Pain Score (VAS): 0 I/O: Intake & Output 05/11/22 05/12/22 05/12/22 23:59 07:59 15:59 Intake Total 480 1300 Output Total 1000 Balance 480 300 Laboratory Tests 05/12/22 04:50 05/12/22 04:50 05/12/22 05/12/22 04:50 04:50 WBC 3.8 L RBC 3.10 L Hgb 10.3 L Hct 31.1 L MCV 100.3 H MCH 33.2 MCHC 33.1 RDW 14.0 Plt Count 143 L MPV 8.2 Immature Gran % (Auto) 0.3 Neut % (Auto) 60.5 Lymph % (Auto) 23.7 [place] % (Auto) 11.8 H Eos % (Auto) 3.2 Baso % (Auto) 0.5 Lymph # (Auto) 0.90 [place] # (Auto) 0.5 Eos # (Auto) 0.1 Baso # (Auto) 0.0 Abs Immat Gran (auto) 0.01 Absolute Neuts (auto) 2.3 Absolute Nucleated RBC 0.0 Nucleated RBC % 0.0 Sodium 134 L Potassium 3.5 Chloride 102 Carbon Dioxide 32 H Anion Gap 0 L BUN 3 L Creatinine 0.90 Estim Creat Clear Calc 58 Estimated GFR > 60 Glucose 83 Calcium 8.5 Magnesium 1.7 Total Bilirubin 0.5 AST 28 ALT 26 Alkaline Phosphatase 101 Total Protein 6.0 L Albumin 3.0 L Post-procedural complaints: none Patient Feedback: Patient satisfied with anesthetic care.
[2022-05-12] MEDS: QUEtiapine FUMARATE 12.5 MG TABLET PO (09:41)
[2022-05-12] MEDS: CHOLECALCIFEROL 1,000 UNITS TABLET 5000 UNITS PO (09:41)
[2022-05-12] MEDS: ROSUVASTATIN 10 MG TABLET 40 MG PO (09:41)
[2022-05-12] MEDS: OMEGA 3 POLYUNSAT FATTY ACIDS 1 GM CAP PO ×2 (09:41→17:46)
[2022-05-12] MEDS: PSYLLIUM SUGAR FREE POWDER PACKET 1 PACKET PO (09:41)
[2022-05-12] MEDS: MONTELUKAST SODIUM 10 MG TABLET PO (09:42)
[2022-05-12] MEDS: MIRABEGRON 50 MG ER TABLET PO (09:42)
[2022-05-12] MEDS: ASPIRIN 81 MG ENTERIC TABLET PO (09:42)
[2022-05-12] MEDS: DOCUSATE SODIUM 100 MG CAPSULE PO (09:42)
[2022-05-12] MEDS: TAMSULOSIN HCL 0.4 MG CAPSULE PO (09:42)
[2022-05-12] MEDS: OXcarbazepine 150 MG TABLET PO ×2 (09:42→20:57)
[2022-05-12] MEDS: ESCITALOPRAM OXALATE 10 MG TABLET PO (09:42)
[2022-05-12] MEDS: CARBIDOPA/LEVODOPA 10/100 MG TABLET 1 TABLET PO ×2 (09:42→17:46)
[2022-05-12] MEDS: valACYclovir HCL 500 MG TABLET 1000 MG PO (09:42)
[2022-05-12] MEDS: carvediloL 3.125 MG TABLET PO ×2 (09:42→17:46)
[2022-05-12] MEDS: HEPARIN SODIUM 5,000 UNITS/ML VIAL 5000 UNITS SUB-Q ×2 (09:43→20:57)
[2022-05-12] MEDS: AMANTADINE HCL 100 MG CAPSULE PO (09:43)
[2022-05-12] MEDS: CYANOCOBALAMIN 1,000 MCG TABLET 1000 MCG PO (09:43)
[2022-05-12] MEDS: POTASSIUM CHLORIDE 20 MEQ PACKET (FOR LIQUID) PO (09:43)
[2022-05-12] MEDS: rOPINIRole HCL 1 MG TABLET PO ×2 (09:43→17:47)
[2022-05-12] MEDS: MEMANTINE 5 MG TABLET PO ×2 (09:43→17:47)
[2022-05-12] MEDS: polyethylene glycoL 3350 17 GM POWD.PACK PO (09:44)
[2022-05-12] MEDS: FERROUS SULFATE 324 MG TABLET PO (11:52)
--- NOTE | 2022-05-12 12:06 | PM.IMPN ---
Progress Note: A&P Assessment and Plan (1) Hypothyroidism: Code(s): E03.9 - Hypothyroidism, unspecified Status: Acute (2) Parkinson's disease: Code(s): G20 - Parkinson's disease Status: Acute (3) Urinary tract infection: Code(s): N39.0 - Urinary tract infection, site not specified Status: Acute (4) Dementia: Code(s): F03.90 - Unspecified dementia, unspecified severity, without behavioral disturbance, psychotic disturbance, mood disturbance, and anxiety Status: Acute (5) Syncope: Code(s): R55 - Syncope and collapse Status: Acute (6) Seizure: Code(s): R56.9 - Unspecified convulsions Status: Acute Plan 77 years old M with PMH of Dementia presented with blood from penis, black colored stool, ?seizure. #?Seizure Episode+?Acute vs chronic Encephalopathy: Reported seizure-like episode lasted for/2nd the facility. According to record he went unresponsive and clammy with blood pressure 88/40. has also noticed block: 5 today. Patient confused on presentation, ?baseline with H/o dementia patient is started Keppra in the ER. Drug screen was negative in the ER chest x-ray negative Neurology consulted EEG with slow activity without any paroxysmal discahrge compatible with organic or metabolic encephalopathy or postictal state. CT head showed old ischemic changes on ASA Also has likley UTI, that can cause mental status changes treated with ceftriaxone Echo 05/09/2022 EF 65-70% mildly increased left ventricular wall thickness grade 1 diastolic dysfunction no significant valvular abnormality # UTI: C/w ceftriaxone Urine culture with 10 K to 49 K Proteus mirabilis switched to amoxicillin # Black Colored Stool: H/H stable ?Acute vs chronic anemia. H&H remained stable without any further drop. FOBT comes back positive C/w PPI c/w iron supplement GI consulted. status post EGD and colonscopy: EGD: normal colonoscpy: multiple small size uncomplicated internal hemorroids in rectum with stigmata of bleeding. a single superficial 3 mm ulcer in rectum at a depth of 1 cm from the anus. #?Seizure vs Syncope: Echo reviewed EEG reiwed 5)H/o Dementia: c/w Amantadine, Donepezil, Namenda # Hypothyroidism: TSH 50 On levothyroxine ?Non compliance with Dementia Await Free T4 # H/o Compression Fracture from fall in March 29, 2022: Has back brace # DVT ppx: Hep SQ # Code;DNR # Dispo:pending improvement. Comes from [facility] Subjective Date/time seen: 05/12/22 12:06 Interval history: no overnight events. Reports no symptoms. Still on and off confusion per nursing staff. unsteady in his gait. Orthostatic Review of Systems Review of Systems: All systems reviewed & are unremarkable except as noted in HPI and below Exam Narrative: General appearance: Well-developed, well-nourished Skin: Normal color Head: Normocephalic, nontraumatic Eyes: Clear conjunctiva ENT: Oropharynx normal, ears normal, nose normal Neck: Supple, nontender Chest and respiratory: Airway patent, no respiratory distress, no accessory muscle use Heart: Regular rate/rhythm Abdomen: Could not be examined due to for thoraco lumbar brace Vascular: Normal peripheral pulses, normal capillary refill. 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
[2022-05-12] MEDS: DONEPEZIL HCL 10 MG TABLET PO (20:57)
[2022-05-13] VITALS (7 sets, daily range): BP systolic 146; BP diastolic 67; PULSE 60–78; RESP 16; TEMP 36.8; O2SAT 93–94
[2022-05-13 05:46] LABS: Basophils Percent Auto 0.5 % (0.2-1.2); Eosinophils Absolute Auto 0.1 K/mm3 (0-0.3); Eosinophils Percent Auto 2.6 % (0-4.4); Hemoglobin 10.7 g/dL (14.0-18.0); Immature Granulocyte Absolute 0.01 K/mm3 (0.00-0.031); Immature Granulocyte Percent A 0.2 % (0-0.5); Lymphocytes Absolute Auto 0.97 K/mm3 (0.9-3.2); Mean Corpuscular HGB Conc 33.4 g/dl (32-36); Mean Corpuscular Hemoglobin 33.8 pg (26-34); Mean Corpuscular Volume 100.9 fl (80-100); Mean Platelet Volume 8.5 fl (7.4-10.4); Monocytes Absolute Auto 0.5 K/mm3 (0.1-0.6); Monocytes Percent Auto 10.7 % (2.6-8.5); Neutrophils Absolute Auto 2.7 K/mm3 (1.3-6.7); Platelet Count Result 157 k/mm3 (150-375); Red Blood Count 3.17 M/mm3 (4.6-6.20); Red Cell Distribution Width 13.9 % (11.5-14.5); White Blood Count 4.2 K/mm3 (4.5-10.0)
[2022-05-13 05:56] LABS: Alanine Aminotransferase 29 U/L (6-50); Albumin Level 3.1 g/dL (3.5-5.1); Alkaline Phosphatase 122 U/L (38-126); Anion Gap 4 mmol/L (8-16); Aspartate Amino Transferase 32 U/L (17-59); Bilirubin,Total 0.4 mg/dL (0.2-1.3); Blood Urea Nitrogen 3 mg/dL (9-20); Calcium 8.7 mg/dL (8.4-10.2); Carbon Dioxide 32 mmol/L (22-30); Chloride 100 mmol/L (98-107); Estimated CRCL calculation 65 ml/min; Estimated Glomerular Filt Rate > 60; Glucose 89 mg/dL (65-110); Magnesium 1.8 mg/dL (1.6-2.3); Potassium 3.4 mmol/L (3.4-5.0); Sodium 136 mmol/L (137-145)
[2022-05-13] MEDS: LEVOTHYROXINE SODIUM 75 MCG TABLET 150 MCG PO (06:52)
[2022-05-13] MEDS: AMOXICILLIN 500 MG CAPSULE PO ×2 (06:53→14:12)
[2022-05-13] MEDS: ASPIRIN 81 MG ENTERIC TABLET PO (09:10)
[2022-05-13] MEDS: ROSUVASTATIN 10 MG TABLET 40 MG PO (09:10)
[2022-05-13] MEDS: POTASSIUM CHLORIDE 20 MEQ PACKET (FOR LIQUID) PO (09:11)
[2022-05-13] MEDS: TAMSULOSIN HCL 0.4 MG CAPSULE PO (09:12)
[2022-05-13] MEDS: CYANOCOBALAMIN 1,000 MCG TABLET 1000 MCG PO (09:12)
[2022-05-13] MEDS: DOCUSATE SODIUM 100 MG CAPSULE PO (09:12)
[2022-05-13] MEDS: MONTELUKAST SODIUM 10 MG TABLET PO (09:13)
[2022-05-13] MEDS: PSYLLIUM SUGAR FREE POWDER PACKET 1 PACKET PO (09:16)
[2022-05-13] MEDS: ESCITALOPRAM OXALATE 10 MG TABLET PO (09:16)
[2022-05-13] MEDS: QUEtiapine FUMARATE 12.5 MG TABLET PO (09:16)
[2022-05-13] MEDS: polyethylene glycoL 3350 17 GM POWD.PACK PO (09:16)
[2022-05-13] MEDS: CARBIDOPA/LEVODOPA 10/100 MG TABLET 1 TABLET PO (09:16)
[2022-05-13] MEDS: AMANTADINE HCL 100 MG CAPSULE PO (09:17)
[2022-05-13] MEDS: MIRABEGRON 50 MG ER TABLET PO (09:17)
[2022-05-13] MEDS: valACYclovir HCL 500 MG TABLET 1000 MG PO (09:17)
[2022-05-13] MEDS: rOPINIRole HCL 1 MG TABLET PO (09:17)
[2022-05-13] MEDS: OXcarbazepine 150 MG TABLET PO (09:17)
[2022-05-13] MEDS: MEMANTINE 5 MG TABLET PO (09:18)
[2022-05-13] MEDS: OMEGA 3 POLYUNSAT FATTY ACIDS 1 GM CAP PO (09:18)
[2022-05-13] MEDS: HEPARIN SODIUM 5,000 UNITS/ML VIAL 5000 UNITS SUB-Q (09:18)
[2022-05-13] MEDS: CHOLECALCIFEROL 1,000 UNITS TABLET 5000 UNITS PO (09:18)
[2022-05-13] MEDS: carvediloL 3.125 MG TABLET PO (09:18)
--- NOTE | 2022-05-13 09:40 | WPDGIPROGNO ---
Progress Note: A&P Assessment and Plan (1) Internal hemorrhoids without complication: Code(s): K64.8 - Other hemorrhoids Status: Acute Assessment and Plan: Internal hemorrhoids in the small rectal erosion consistent with recent fecal impaction. Appears to have been etiology recent occult blood in stool. Plan for ongoing stool softeners and laxatives as needed. I discussed this was patient's so that he knows to continue this after discharge. Disposition per primary care service. (2) Rectal ulcer: Code(s): K62.6 - Ulcer of anus and rectum Status: Acute Assessment and Plan: Related to recent constipation. No active bleeding at this time. Should heal with ongoing good bowel function. Subjective Date/time seen: 05/13/22 09:40 Interval history: Patient alert comfortable this morning. Reports improved bowel function. No obvious bleeding reported. Review of Systems Review of Systems: Of systems noncontributory. Exam Narrative: Physical exam reveals patient be alert. Comfortable at rest. HEENT exam reveals no icterus. Lungs clear. Heart without murmur. Abdomen patient wearing a back brace. Objective Data Vital Signs Vital Signs: Vital Signs - 24 hr 05/12/22 12:00 05/12/22 13:45 05/12/22 16:00 Temperature 98.4 F Pulse Rate 75 60 62 Respiratory Rate 16 Blood Pressure 118/60 Pulse Oximetry 100 Oxygen Delivery 05/12/22 19:44 05/12/22 22:46 05/12/22 21:05 Temperature 97.8 F Pulse Rate 61 Respiratory Rate 16 Blood Pressure 125/60 Pulse Oximetry 100 99 Oxygen Delivery Room Air Room Air 05/12/22 20:00 05/13/22 00:00 05/13/22 04:00 Temperature Pulse Rate 60 60 60 Respiratory Rate Blood Pressure Pulse Oximetry Oxygen Delivery 05/13/22 06:04 05/12/22 22:46 05/12/22 22:52 Temperature 98.2 F Pulse Rate 78 Respiratory Rate 16 Blood Pressure 146/67 H 125/60 121/69 Pulse Oximetry 93 Oxygen Delivery 05/12/22 22:59 05/13/22 08:17 05/13/22 09:18 Temperature Pulse Rate 78 Respiratory Rate Blood Pressure 102/55 L Pulse Oximetry 94 Oxygen Delivery Room Air 05/13/22 08:00 Temperature Pulse Rate 60 Respiratory Rate Blood Pressure Pulse Oximetry Oxygen Delivery Intake/Output Intake/Output: Intake & Output 05/10/22 05/11/22 05/12/22 05/13/22 23:59 23:59 23:59 23:59 Intake Total 4770 2450 2020 400 Output Total 1300 600 Balance 4770 2450 720 -200 Meds/Results Medications: Active Medications Generic Name Dose Route Start Last Admin Trade Name Carlos PRN Reason Stop Dose Admin Amantadine HCl 100 mg 05/09/22 09:00 05/13/22 09:17 Amantadine Hcl 100 Mg Capsule PO 100 mg DAILY CARISSA Administration Amoxicillin 500 mg 05/10/22 15:05 05/13/22 06:53 Amoxicillin 500 Mg Capsule PO 05/16/22 06:01 500 mg [facility] Administration Aspirin 81 mg 05/09/22 09:00 05/13/22 09:10 Aspirin 81 Mg Enteric Tablet PO 81 mg DAILY CARISSA Administration Carbidopa/Levodopa 1 tablet 05/09/22 08:00 05/13/22 09:16 Carbidopa/Levodopa 10/100 Mg Tablet PO 1 tablet BIDWM CARISSA Administration Carvedilol 3.125 mg 05/09/22 08:00 05/13/22 09:18 Carvedilol 3.125 Mg Tablet PO 3.125 mg BIDWM [facility] Administration Cyanocobalamin 1,000 mcg 05/09/22 09:00 05/13/22 09:12 Cyanocobalamin 1,000 Mcg Tablet PO 1,000 mcg DAILY CARISSA Administration Docusate Sodium 100 mg 05/09/22 09:00 05/13/22 09:12 Docusate Sodium 100 Mg Capsule PO 100 mg DAILY [facility] Administration Donepezil HCl 10 mg 05/09/22 21:00 05/12/22 20:57 Donepezil Hcl 10 Mg Tablet PO 10 mg QHS [facility] Administration Escitalopram Oxalate 10 mg 05/09/22 09:00 05/13/22 09:16 Escitalopram Oxalate 10 Mg Tablet PO 10 mg DAILY [facility] Administration Ferrous Sulfate 324 mg 05/09/22 12:00 05/12/22 11:52 Ferrous Sulfate 324 Mg Tablet PO 324 mg NOON [facility] Administrat
--- NOTE | 2022-05-13 11:45 | PM.DS ---
DS: Admitting Diagnosis Discharge Date 05/13/2022 Admitting Diagnosis possible seizure DS: Discharge Diagnosis Discharge Diagnosis (1) Hypothyroidism: Code(s): E03.9 - Hypothyroidism, unspecified Status: Acute (2) Parkinson's disease: Code(s): G20 - Parkinson's disease Status: Acute (3) Urinary tract infection: Code(s): N39.0 - Urinary tract infection, site not specified Status: Acute (4) Dementia: Code(s): F03.90 - Unspecified dementia, unspecified severity, without behavioral disturbance, psychotic disturbance, mood disturbance, and anxiety Status: Acute (5) Syncope: Code(s): R55 - Syncope and collapse Status: Acute (6) Seizure: Code(s): R56.9 - Unspecified convulsions Status: Acute DS: Summary Hospital Course Hospital Course: 77 years old M with PMH of Dementia presented with blood from penis, black colored stool, ?seizure and multiple different complaints # ?Seizure Episode+?Acute vs chronic Encephalopathy:? Reported seizure-like episode lasted for few seconds in the facility.? According to record he went unresponsive and clammy with blood pressure 88/40.? has also noticed dark colored stool presentation. Patient confused on presentation, ?baseline with H/o dementia patient is started Keppra in the ER.? Drug screen was negative in the ER chest x-ray negative Neurology consulted EEG with slow activity without any paroxysmal discahrge compatible with organic or metabolic encephalopathy or postictal state.? CT head showed old ischemic changes on ASA Also has likley UTI, that can cause mental status changes treated with ceftriaxone. This was switched to amoxicillin per sensitivity report during the hospital and will continue at discharge Echo 05/09/2022 EF 65-70% mildly increased left ventricular wall thickness grade 1 diastolic dysfunction no significant valvular abnormality he had no further episodes his vitals stable. His altered mental status multifactorial likely related to underlying UTI and/ # UTI: C/w ceftriaxone Urine culture with 10 K to 49 K Proteus mirabilis switched to amoxicillin # Black Colored Stool: H/H stable ?Acute vs chronic anemia.? H&H remained stable without any further drop.? FOBT comes back positive C/w PPI c/w iron supplement GI consulted. status post EGD and colonscopy: EGD: normal colonoscpy: multiple small size uncomplicated internal hemorroids in rectum with stigmata of bleeding. a single superficial 3 mm ulcer in rectum at a depth of 1 cm from the anus. On MiraLax and psyllium per GI recommendation #?Seizure vs Syncope: Echo reviewed EEG reiwed 5)H/o Dementia: c/w Amantadine, Donepezil, Namenda # Hypothyroidism: TSH 50 On levothyroxine ?Non compliance with Dementia free T4 low will increase dose of levothyroxine discharge recheck level in 4-6 weeksAt discharge and adjust the dose # H/o Compression Fracture from fall in March 29, 2022: Has back brace. Follow up with Neurosurgery as per recently scheduled # DVT ppx: Hep SQ # Code;DNR # Dispo he Comes from [facility]. PT OT evaluated and he does not want go back to [facility]. PTOT suggests going home with home health. Home health arranged at the time of discharge Time Spent with Patient Time attestation: Total time spent providing and/or coordinating discharge services: 40 minutes Exam Narrative: General appearance: Well-developed, well-nourished Skin: Normal color Head: Normocephalic, nontraumatic Eyes: Clear conjunctiva ENT: Oropharynx normal, ears normal, nose normal Neck: Supple, nontender Chest and respiratory: Airway patent, no respiratory distress, no accessory muscle use Heart: Regular rate/rhythm Abdomen: Could not be examined due to for thoraco lumbar brace Vascular: Normal peripheral pulses, normal capillary refill. Musculoskeletal: No edema cyanosis or clubbing Neurologic: Alert and conversant oriented to yana
[2022-05-13] MEDS: FERROUS SULFATE 324 MG TABLET PO (12:09)
== END 2022-05-13 16:20 | disposition home health service (06) | DRG 690 ==
LOC: ANHED 15:44 → ANH2MED 17:58
PROVIDERS: General Practice; Internal Medicine; Internal Medicine Gastroenterology; Nurse Practitioner; Admitting Provider Family Medicine; Emergency Provider Emergency Medicine; PCP Internal Medicine; Visit Provider Internal Medicine
PROC: 0DJ08ZZ Inspection of Upper Intestinal Tract, Via Natural or Artificial Opening Endoscopic (ICD-10-PCS; CPT 43235; principal; 2022-05-11 12:30)
DX: N39.0 Urinary tract infection, site not specified (principal); K92.1 Melena; K62.6 Ulcer of anus and rectum; R55 Syncope and collapse; K64.8 Other hemorrhoids; B96.4 Proteus (mirabilis) (morganii) as the cause of diseases classified elsewhere; D64.9 Anemia, unspecified; E78.5 Hyperlipidemia, unspecified; E03.9 Hypothyroidism, unspecified; F03.90 Unspecified dementia, unspecified severity, without behavioral disturbance, psychotic disturbance, mood disturbance, and anxiety; G20 Parkinson's disease; G25.81 Restless legs syndrome; I10 Essential (primary) hypertension; M48.061 Spinal stenosis, lumbar region without neurogenic claudication; N40.0 Benign prostatic hyperplasia without lower urinary tract symptoms; R31.9 Hematuria, unspecified; S32.020D Wedge compression fracture of second lumbar vertebra, subsequent encounter for fracture with routine healing; W19.XXXD Unspecified fall, subsequent encounter; Z20.822 Contact with and (suspected) exposure to COVID-19; Z86.73 Personal history of transient ischemic attack (TIA), and cerebral infarction without residual deficits; Z79.82 Long term (current) use of aspirin; Z66 Do not resuscitate
CPT/HCPCS: 36415; 51701; 70450; 71045; 74176; 80048; 80053; 80307; 81001; 82274; 83605; 83735; 84439; 84443; 85014; 85018; 85025; 85610; 85730; 86850; 86900; 86901; 87040; 87077; 87086; 87088; 87186; 87636; 93005; 93306; 95816; 96361; 96374; 97161; 97165; 97530; 97535; 99285; A9270; G0378; J0696; J1644; J2704; J7030; J7120

== ENCOUNTER → 2022-05-31 11:42 | Outpatient (CLI) | payer MEDICARE, OTHER, SELFPAY ==
--- NOTE | ~2022-05-31 | XR_ITS ---
EXAMINATION: XR lumbar spine 2-3V DATE: 05/31/2022 13:04 INDICATION: Low back pain TECHNIQUE: AP and lateral views of the lumbar spine were obtained. COMPARISON: CT, 05/11/2022 FINDINGS: There is an unchanged burst fracture of L2 with 4 mm of retropulsion of fracture fragments into the central spinal canal. There is subtle deformity of the anterior/superior endplate of L1. The re is severe loss of intervertebral disc space height at L4-5 and L5-S1. No new fracture is identifie d. There is calcified atherosclerosis. A neurostimulator device is implanted in the soft tissues of t he right buttock with its lead entering the left pelvis at the level of S3. 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 IMPRESSION: 1. Unchanged burst fracture of L2 and subtle anterior/superior endplate fracture of L1. Reviewed, dictated and finalized at location F. [facility] IMPRESSION: 1. Unchanged burst fracture of L2 and subtle anterior/superior endplate fractur e of L1.
== END ==
PROVIDERS: PCP Internal Medicine; Visit Provider Nurse Practitioner Adult Health
DX: S32.011D Stable burst fracture of first lumbar vertebra, subsequent encounter for fracture with routine healing (principal); X58.XXXD Exposure to other specified factors, subsequent encounter
CPT/HCPCS: 72100

== ENCOUNTER 2022-06-03 19:26 | Inpatient (IN) | payer MEDICARE, OTHER, SELFPAY ==
--- NOTE | ~2022-06-03 | CT_ITS ---
EXAMINATION: CT brain wo con INDICATION: Dementia, loss of appetite COMPARISON: 05/08/2022 TECHNIQUE: Standard unenhanced head CT. The dose-length product (DLP) was 605.33 mGy-cm. The mA was a djusted according to patient size. Iterative reconstruction technique was employed. FINDINGS: There is no acute intraparenchymal hemorrhage. No evidence of mass lesion. No evidence of a cute infarction. Again noted are areas of prior infarction in the joce, the thalami, the right basal ganglia, and the right internal capsule. There is mild periventricular and subcortical hypodensity pr obably related to small vessel ischemic disease. There is mild prominence of the sulci and ventricles related to cerebral atrophy. Intracranial calcified cerebral atherosclerosis is noted. There are no extra-axial collections. There is no mass effect or midline shift. The orbits and soft tissues are un remarkable. The visualized sinuses and mastoid air cells are well aerated. IMPRESSION: 1. Areas of prior infarction without acute acute intracranial abnormality. 2. Age related findings. Reviewed, dictated and finalized at location F. T WORKER
--- NOTE | ~2022-06-03 | XR_ITS ---
XR abdomen NG/feed tube insert DATE: 06/05/2022 10:23 INDICATION: Nasogastric tube insertion TECHNIQUE: Portable semiupright AP view on 06/05/2022 at 1016 hours COMPARISON: May 11, 2022 CT abdomen pelvis FINDINGS: NG tube tip overlies the distal stomach. Status post sternotomy and coronary bypass graft surgery. Left dual-lead pacemaker device with leads overlying right atrium and right ventricle. The lungs are clear of infiltrate or consolidation. No pleural effusion or pulmonary vascular congest ion or pneumothorax. Included upper abdominal structures are unremarkable. IMPRESSION: NG tube in distal stomach Reviewed, dictated and finalized at Location A. Reviewed, dictated and finalized at location B. L GEAR GENERATOR OPERATOR IMPRESSION: NG tube in distal stomach
--- NOTE | ~2022-06-03 | XR_ITS ---
EXAMINATION: XR chest 1V INDICATION: Fever TECHNIQUE: AP view of the chest is obtained. COMPARISON: 05/08/2022 FINDINGS: The lungs are free of acute opacities. No pleural effusion or pneumothorax. Median sternoto my wires are consistent with prior cardiac surgery. A dual-lead cardiac pacemaker of the left chest w all ends with leads in expected locations. IMPRESSION: 1. No acute cardiopulmonary abnormality. Reviewed, dictated and finalized at location F. [employer]
--- NOTE | ~2022-06-03 | XR_ITS ---
EXAMINATION: XR barium swallow modified DATE: 06/12/2022 12:27 INDICATION: Dysphagia. TECHNIQUE: The patient was given barium-containing material of multiple consistencies to swallow by t murali speech pathologist while I performed fluoroscopy. Fluoroscopy exposure time was 0.1 minutes. The n umber of fluoroscopy images saved to the PACS was 1. Dose-area product was Gy-cm^2. FINDINGS: The patient refused all to consume any of the offered liquid or pudding. IMPRESSION: 1. The patient refused to consume any of the offered liquid or pudding. 2. Please refer to the speech therapy report for recommendations. Reviewed, dictated and finalized at location A.
[2022-06-03 19:43] VITALS: BP 130/81; PULSE 109; RESP 18; TEMP 38.9; O2SAT 100
--- NOTE | 2022-06-03 20:04 | ECG_ITS ---
Measurements Intervals [place] Rate: 97 P: 53 ME: 366 QRS: 48 QRSD: 87 T: 35 QT: 343 QTc: 437 Interpretive Statements SINUS RHYTHM BORDERLINE ST-T WAVE ABNORMALITY- INFERIOR LEADS BASELINE ARTIFACT- I, II, III, AVR, AVL, AVF, V4 BORDERLINE ECG COMPARED TO ECG 05/08/2022 11:15:58 SINUS RHYTHM NOW PRESENT Electronically Signed On 06-04-2022 6:42:12 CRITICAL CARE CLINICAL NURSE SPECIALIST by Todd Reynoso D.O.
--- NOTE | 2022-06-03 20:14 | ED.GENADULT ---
HPI - General Adult General Chief complaint: Weakness Stated complaint: not eating, weakness and unresponsive Time Seen by Provider: 06/03/22 20:00 History of Present Illness HPI narrative: Patient 77-year-old gentleman who presents the emergency department with chief complaint of generalized weakness. Per the patient's family the last few days the patient has not really been eating and drinking much. The patient has had increased confusion as he has history of dementia per the family the patient was just found to have a fever this afternoon he is incontinent of urine report no exposure to anyone that has been diagnosed recently with COVID or flu. Related Data Home Medications Medication Instructions Recorded Confirmed docusate sodium 100 mg capsule 100 mg PO DAILY 05/03/22 05/31/22 donepezil 10 mg tablet 10 mg PO QHS 05/03/22 05/31/22 ferrous sulfate 325 mg (65 mg 325 mg PO DAILY 05/03/22 05/31/22 iron) tablet memantine 5 mg tablet 5 mg PO BID 05/03/22 05/31/22 mirabegron 50 mg tablet,extended 50 mg PO DAILY 05/03/22 05/31/22 release 24 hr montelukast 10 mg tablet 10 mg PO DAILY 05/03/22 05/31/22 oxcarbazepine 150 mg tablet 150 mg PO BID 05/03/22 05/31/22 potassium chloride 20 mEq oral 20 meq PO DAILY 05/03/22 05/31/22 packet (Klor-Con) ropinirole 1 mg tablet 1 mg PO BID 05/03/22 05/31/22 rosuvastatin 40 mg tablet 40 mg PO DAILY 05/03/22 05/31/22 tamsulosin 0.4 mg capsule 0.4 mg PO DAILY 05/03/22 05/31/22 valacyclovir 1 gram tablet 1,000 mg PO DAILY 05/03/22 05/31/22 amantadine HCl 100 mg capsule 100 mg PO DAILY 05/08/22 05/31/22 aspirin 81 mg tablet,delayed 81 mg PO DAILY 05/08/22 05/31/22 release carbidopa 10 mg-levodopa 100 mg 1 tablet PO BID 05/08/22 05/31/22 disintegrating tablet carvedilol 6.25 mg tablet 3.125 mg PO BID 05/08/22 05/31/22 cholecalciferol (vitamin D3) 125 5,000 unit PO DAILY 05/08/22 05/31/22 mcg (5,000 unit) capsule cyanocobalamin (vitamin B-12) 1,000 mcg PO DAILY 05/08/22 05/31/22 1,000 mcg capsule escitalopram oxalate 10 mg tablet 10 mg PO DAILY 05/08/22 05/31/22 omega-3 acid ethyl esters 1 gram 1 cap PO BID 05/08/22 05/31/22 capsule polyethylene glycol 3350 17 gram 17 g PO DAILY 05/08/22 05/31/22 oral powder packet (Miralax) quetiapine 25 mg tablet 12.5 mg PO DAILY 05/08/22 05/31/22 tolterodine 2 mg capsule,extended 2 mg PO DAILY 05/08/22 05/31/22 release 24 hr Allergies Allergy/AdvReac Type Severity Reaction Status Date / Time celecoxib [From Celebrex] Allergy Unknown Verified 06/03/22 19:49 metoprolol Allergy Unknown Verified 06/03/22 19:49 Review of Systems Review of Systems: A 10 system review of systems was completed on the patient and is negative except for what is stated in the HPI. Nursing and ancillary documentation was reviewed. [facility] Past Medical History Medical History BPH (benign prostatic hyperplasia) Compression fracture of L2 Dementia History of CVA (cerebrovascular accident) Hyperlipidemia Hypertension Hypothyroidism Lumbar spondylosis Lumbar stenosis Parkinson's disease Restless leg syndrome Seizure Surgical History Surgical History Surgical history unknown Family History Family History Father Myocardial infarction Social History Social History Social History: The patient resides at [facility] and he is . The patient has 2 children. He is retired from the [employer]. Code status DNR Smoking status: Unknown if ever smoked Alcohol intake: never Substance use: never Spiritual care concerns: No Exam Narrative: GENERAL: Well-appearing, well-nourished, and in no acute distress. HEAD: Normocephalic, atraumatic. EYES: PERRLA and EOMI. ENT: Nares clear, n
--- NOTE | 2022-06-03 20:24 | PC.NURSE ---
Pt in imaging at this time
[2022-06-03 20:40] VITALS: BP 126/86; PULSE 96; RESP 22; O2SAT 97
[2022-06-03] MEDS: SODIUM CHLORIDE 0.9% IV 1,000 ML 999 ML IV CONT (20:40)
[2022-06-03 20:52] LABS: Basophils Percent Auto 0.1 % (0.2-1.2); Eosinophils Percent Auto 0.4 % (0-4.4); Hematocrit 39.6 % (42.0-52.0); Hemoglobin 12.9 g/dL (14.0-18.0); Immature Granulocyte Absolute 0.03 K/mm3 (0.00-0.031); Immature Granulocyte Percent A 0.4 % (0-0.5); Lymphocytes Absolute Auto 0.76 K/mm3 (0.9-3.2); Lymphocytes Percent Auto 10.5 % (18.3-44.2); Mean Corpuscular HGB Conc 32.6 g/dl (32-36); Mean Corpuscular Hemoglobin 33.6 pg (26-34); Mean Corpuscular Volume 103.1 fl (80-100); Mean Platelet Volume 8.8 fl (7.4-10.4); Monocytes Absolute Auto 1.2 K/mm3 (0.1-0.6); Neutrophils Absolute Auto 5.3 K/mm3 (1.3-6.7); Neutrophils Percent Auto 72.6 % (45.5-73.1); Platelet Count Result 158 k/mm3 (150-375); Red Blood Count 3.84 M/mm3 (4.6-6.20); Red Cell Distribution Width 13.8 % (11.5-14.5); White Blood Count 7.3 K/mm3 (4.5-10.0)
[2022-06-03 21:03] LABS: INR 1.1
[2022-06-03 21:04] LABS: Lactic Acid Reflex 1.5 mmol/L (0.7-2.0); Partial Thromboplastin Time 40.1 SECONDS (22.3-36.8)
[2022-06-03 21:13] LABS: Alanine Aminotransferase 11 U/L (6-50); Albumin Level 4.6 g/dL (3.5-5.1); Alkaline Phosphatase 100 U/L (38-126); Anion Gap 7 mmol/L (8-16); Aspartate Amino Transferase 21 U/L (17-59); Bilirubin,Total 0.8 mg/dL (0.2-1.3); Blood Urea Nitrogen 12 mg/dL (9-20); Calcium 10.2 mg/dL (8.4-10.2); Carbon Dioxide 32 mmol/L (22-30); Chloride 97 mmol/L (98-107); Estimated CRCL calculation 56 ml/min; Estimated Glomerular Filt Rate > 60; Glucose 116 mg/dL (65-110); Magnesium 1.9 mg/dL (1.6-2.3); Potassium 3.8 mmol/L (3.4-5.0); Sodium 136 mmol/L (137-145)
[2022-06-03 21:17] LABS: Troponin I < 0.012 ng/mL (0.000-0.034)
[2022-06-03 21:22] LABS: Procalcitonin 0.3 ng/mL
[2022-06-03 21:30] LABS: Influenza A QL RT-PCR Negative (Negative); Influenza B QL RT-PCR Negative (Negative); RSV RNA, RT-PCR Negative (Negative); SARS-CoV-2 RNA PCR Negative
[2022-06-03 21:42] VITALS: BP 128/67; PULSE 89; RESP 14; TEMP 37.9; O2SAT 100
[2022-06-03 22:16] LABS: Appearance Urine Clear (Clear); Bilirubin Urine Negative (Negative); Blood Urine 1+ (Negative); Color Urine Yellow (Yellow); Glucose Urine UA Negative (Negative); Ketones Urine Trace mg/dL (Negative); Leukocyte Esterase Ur 1+ LEU/UL (Negative); Nitrate Urine Positive (Negative); Protein Urine 2+ mg/dL (Negative); pH Urine 5.5 (5.0-9.0)
[2022-06-03 22:22] LABS: Add Urine Microscopic? YES; Bacteria Urine Trace /hpf; Mucus Urine Rare /lpf; WBC Urine >75 /hpf
[2022-06-03 22:47] VITALS: BP 109/63; PULSE 84; RESP 17; O2SAT 100
[2022-06-03 23:35] VITALS: BP 123/70; PULSE 82; RESP 19; TEMP 37.3
[2022-06-04] VITALS (7 sets, daily range): BP systolic 105–168; BP diastolic 53–94; PULSE 77–120; RESP 16–20; TEMP 36.6–37.6; O2SAT 97–100; BMI 23.8
--- NOTE | 2022-06-04 01:37 | ADMGEN ---
This patient, Dago Krause, was admitted to [facility] Surg Room 321-02. Patient/family oriented to hospital policies and general routines including ID bracelet, bed and alarms, visiting hours, pain management, procedures, bathroom and other care routines, personal items, smoking policy, room service/diet, and visiting hours. Information on how to activate the Rapid Response Team has been discussed. Patient/Family are encouraged to report perceived risks to care and to ask questions if they do not understand what they are told or what they should do.
--- NOTE | 2022-06-04 02:06 | ADMGEN ---
This patient, Dago Krause, was admitted to [facility] Surg Room 321-02. Patient/family oriented to hospital policies and general routines including ID bracelet, bed and alarms, visiting hours, pain management, procedures, bathroom and other care routines, personal items, smoking policy, room service/diet, and visiting hours. Information on how to activate the Rapid Response Team has been discussed. Patient/Family are encouraged to report perceived risks to care and to ask questions if they do not understand what they are told or what they should do.
--- NOTE | 2022-06-04 02:36 | PM.IMHP ---
H&P: HPI History of Present Illness Date/Time: 06/04/22 02:36 Chief Complaint: Not eating, not taking medications Narrative: 77-year-old male with past medical history of Parkinson's associated dementia, BPH, prior CVA, essential hypertension and hypothyroidism who presented to the ER from home via private vehicle due to not eating and refusing to take his medications. Source of information is nursing report ER records and past medical records. The patient is only alert oriented to his name. He actually does not tell me his name but will open his eyes and intermittently follow commands. Evidently the patient and his had lived in her own home until January when the patient tripped up some steps and fell having a compression fracture of his L2. After that time the patient was discharged to long term facility for rehab. After rehab the patient and his moved in with their son where there was no steps at the home. The patient is chronically confused but has been more confused over the last 3 days. The family realized that the patient had had a fever this afternoon. There is no reported the patient having any nausea or vomiting. At the time of my evaluation the patient was covered up with 7 blankets and skin was hot to touch. Patient was sweating. He was occasionally nodding his head her giving verbal responses with mostly negative responses. His responses were slow and delayed. He would follow commands with repeat prompting. He is chronically incontinent of urine. Bladder scan demonstrated patient was not retaining urine. He has not been vomiting. Review of Systems Review of Systems: ROS unobtainable: Yes unobtainable due to medical condition (Dementia) and unobtainable due to mental status PMFSH Past Medical History Medical History (Updated 06/04/22 @ 07:54 by Radha Brush DO) BPH (benign prostatic hyperplasia) Compression fracture of L2 03/29/2022 Dementia History of CVA (cerebrovascular accident) Hyperlipidemia Hypertension Hypothyroidism Lumbar spondylosis Lumbar stenosis Pacemaker Parkinson's disease Restless leg syndrome Seizure TIA (transient ischemic attack) Surgical History Surgical History (Updated 06/04/22 @ 07:40 by Radha Brush DO) History of bladder surgery Bladder surgery History of prostatectomy Due to prostate cancer Hx of CABG Status post cataract extraction of both eyes with insertion of intraocular lens Family History Family History Father Myocardial infarction Social History Social History (Updated 06/04/22 @ 07:42 by Radha Brush DO) Social History: The patient lives at his son's home with his . They had to move in with the son after the patient had a lumbar fracture January 2022 after falling up the stairs at his home. Code status: DNR/DNI Healthcare power of corporate associate attorney: Smoking status: Never smoker Second hand tobacco smoke exposure: No Alcohol intake: never Substance use: never Lack of Transportation: No Lack of Food: Never True Current Housing: I Have Housing Concerned About Future Housing: No Difficulty Paying Gas/Electric Bills: No Difficulty Paying for Meds: No Currently Unemployed: No Education: Associate Degree Difficulty w/ Childcare or Family Care: No Spiritual care concerns: No Meds Home Medications and Allergies Home Medications Medication Instructions Recorded Confirmed Type docusate sodium 100 mg capsule 100 mg PO DAILY 05/03/22 06/04/22 History donepezil 10 mg tablet 10 mg PO QHS 05/03/22 06/04/22 History ferrous sulfate 325 mg (65 mg 325 mg PO DAILY 05/03/22 06/04/22 History iron) tablet memantine 5 mg tablet 5 mg PO BID 05/03/22 06/04/22 History mirabegron 50 mg tablet,extended 50 mg PO DAILY 05/03/22 06/04/22 History release 24 hr montelukast 10 mg tablet 10 mg PO DAILY 05/03/22 06/04/22 History oxcarbazepine
[2022-06-04] MEDS: SODIUM CHLORIDE 0.9% IV 1,000 ML 125 ML IV CONT ×3 (03:27→21:22)
[2022-06-04] MEDS: carvediloL 3.125 MG TABLET PO (03:28)
[2022-06-04] MEDS: LEVOTHYROXINE SODIUM 75 MCG TABLET PO (05:34)
[2022-06-04] MEDS: LEVOTHYROXINE SODIUM 100 MCG TABLET PO (05:34)
[2022-06-04 09:08] LABS: Basophils Percent Auto 0.1 % (0.2-1.2); Hematocrit 35.5 % (42.0-52.0); Hemoglobin 11.4 g/dL (14.0-18.0); Immature Granulocyte Absolute 0.05 K/mm3 (0.00-0.031); Immature Granulocyte Percent A 0.5 % (0-0.5); Lymphocytes Absolute Auto 0.84 K/mm3 (0.9-3.2); Lymphocytes Percent Auto 8.6 % (18.3-44.2); Mean Corpuscular HGB Conc 32.1 g/dl (32-36); Mean Corpuscular Volume 102.9 fl (80-100); Monocytes Absolute Auto 1.7 K/mm3 (0.1-0.6); Monocytes Percent Auto 17.5 % (2.6-8.5); Neutrophils Absolute Auto 7.2 K/mm3 (1.3-6.7); Neutrophils Percent Auto 73.3 % (45.5-73.1); Platelet Count Result 129 k/mm3 (150-375); Red Blood Count 3.45 M/mm3 (4.6-6.20); Red Cell Distribution Width 13.8 % (11.5-14.5); White Blood Count 9.8 K/mm3 (4.5-10.0)
[2022-06-04 09:22] LABS: Anion Gap 8 mmol/L (8-16); Blood Urea Nitrogen 14 mg/dL (9-20); Calcium 9.3 mg/dL (8.4-10.2); Carbon Dioxide 26 mmol/L (22-30); Chloride 105 mmol/L (98-107); Estimated CRCL calculation 49 ml/min; Estimated Glomerular Filt Rate > 60; Glucose 120 mg/dL (65-110); Potassium 3.6 mmol/L (3.4-5.0); Sodium 139 mmol/L (137-145)
--- NOTE | 2022-06-04 09:56 | PCSTNOTE ---
Please refer to the Bedside Swallow Evaluation in the EMR. Please note, silent aspiration cannot be ruled out at bedside.
[2022-06-04 10:13] LABS: Thyroid Stimulating Hormone Reflex 0.021 uIU/mL (0.465-4.68)
[2022-06-04 10:35] LABS: Folic Acid 4.8 ng/mL (2.76->20); Vitamin B12 > 1000.0 pg/mL (239-931)
[2022-06-04 11:23] LABS: Free T4 Free Thyroxine Reflex 2.94 ng/dL (0.78-2.19)
--- NOTE | 2022-06-04 14:22 | PM.IMPN ---
Progress Note: A&P Assessment and Plan (1) Acute UTI: Code(s): N39.0 - Urinary tract infection, site not specified Status: Acute Assessment and Plan: UA consistent with UTI in in the setting of fever and sepsis. Patient is not having any urinary retention. He received fluid boluses in empiric antibiotic therapy with Rocephin. Will continue Flomax given history of BPH. 77-year-old male with past medical history of Parkinson's associated dementia, BPH, prior CVA, essential hypertension and hypothyroidism who presented to the ER from home via private vehicle due to not eating and refusing to take his medications.? Source of information is nursing report ER records and past medical records.? The patient is only alert oriented to his name.? He actually does not tell me his name but will open his eyes and intermittently follow commands.? Evidently the patient and his had lived in her own home until January when the patient tripped up some steps and fell having a compression fracture of his L2.? After that time the patient was [facility].? After rehab the patient and his moved in with their son where there was no steps at the home.? The patient is chronically confused but has been more confused over the last 3 days.? The family realized that the patient had had a fever this afternoon.? There is no reported the patient having any nausea or vomiting.? At the time of my evaluation the patient was covered up with 7? blankets and skin was hot to touch.? Patient was sweating.? He was occasionally nodding his head her giving verbal responses with mostly negative responses.? His responses were slow and delayed.? He would follow commands with repeat prompting.? He is chronically incontinent of urine.? Bladder scan demonstrated patient was not retaining urine.? He has not been vomiting. 06/04/2022 interval history: unfortunately patient is not able to provide any review of symptoms or history, spoke with the patient grandson and patient's , and received permission to place NG tube for feeding and medications, Will placed soft restraint to prevent removal of NG tube and self-injury, daycare provider also discussed with the patient's and considering hospice care will continue to monitor. (2) Sepsis: Code(s): A41.9 - Sepsis, unspecified organism Status: Acute Assessment and Plan: Sepsis due to UTI. Sepsis criteria met with fever, tachycardia, and tachypnea. The patient received 1 L normal saline bolus in the ER and was started on maintenance fluids. Blood cultures and urine cultures are pending. Patient was started on empiric antibiotic therapy with Rocephin. Will repeat CBC and BMP in a.m.. Patient also appears intravascularly volume depleted so maintenance fluids have been continued. (3) Generalized weakness: Code(s): R53.1 - Weakness Status: Acute Assessment and Plan: Likely due to sepsis and complicated by the patient's baseline Parkinson's, dementia and recent fall with lumbar compression fracture. Will request PT and OT evaluation once the patient's clinical condition has improved. (4) Altered mental status: Qualifiers: Altered mental status type: delirium Qualified Code(s): R41.0 - Disorientation, unspecified Code(s): R41.82 - Altered mental status, unspecified Status: Acute Assessment and Plan: Most likely due to delirium complicating dementia from sepsis. Given the patient's baseline neurologic deficit and confusion will ask speech therapy to evaluate the patient patient assess for evidence of dysphagia. Will continue to treat sepsis. Will continue home medications for dementia and behavioral elements. Will check B12 folic acid levels was TSH to rule out other metabolic components to the patient's confusion. (5) Hypothyroidism: Qualifiers: Hypothyroidism type: acquired Qualified Cod
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
--- NOTE | 2022-06-04 17:29 | PC.NURSE ---
Pt's called again to discuss pt's outbursts. During the course of the conversation, she stated that he does come at me at time but I tell him not now. She continued by explaining that he does not want to take meds or eat and that he does act up when pushed to do so. Patient's outbursts have been happening for quite some time based on the 's various comments.
--- NOTE | 2022-06-04 17:31 | PC.NURSE ---
Pt's grandson came to the bedside and stated that his grandmother (pt's ) had sent him here to control the pt. I explained to him what happened to which he replied, yeah that sounds like him. He does that when you try to make him do something he don't want to do. He agreed to come back tomorrow to assist in getting the NG tube placed but stated it would have to be at 0600 when he gets off work as he works midnights. I told him that we would make arrangements so that could happen.
[2022-06-05 05:34] VITALS: BP 136/65; PULSE 89; RESP 16; TEMP 36.6; O2SAT 98
[2022-06-05 06:34] LABS: Hematocrit 32.7 % (42.0-52.0); Hemoglobin 10.7 g/dL (14.0-18.0); Immature Platelet Fraction Pct 1.3 % (0.9-11.2); Mean Corpuscular HGB Conc 32.7 g/dl (32-36); Mean Corpuscular Hemoglobin 34.2 pg (26-34); Mean Corpuscular Volume 104.5 fl (80-100); Mean Platelet Volume 8.8 fl (7.4-10.4); Platelet Count Result 114 k/mm3 (150-375); Red Blood Count 3.13 M/mm3 (4.6-6.20); Red Cell Distribution Width 13.7 % (11.5-14.5); White Blood Count 7.9 K/mm3 (4.5-10.0)
[2022-06-05] MEDS: OLANZapine 5 MG, WATER, STERILE FOR INJECTION 2.1 ML IM (06:46)
[2022-06-05 06:48] LABS: Anion Gap 7 mmol/L (8-16); Blood Urea Nitrogen 12 mg/dL (9-20); Calcium 9.1 mg/dL (8.4-10.2); Carbon Dioxide 27 mmol/L (22-30); Chloride 108 mmol/L (98-107); Estimated CRCL calculation 49 ml/min; Estimated Glomerular Filt Rate > 60; Glucose 99 mg/dL (65-110); Magnesium 1.8 mg/dL (1.6-2.3); Potassium 3.7 mmol/L (3.4-5.0); Sodium 142 mmol/L (137-145)
[2022-06-05] MEDS: LEVOTHYROXINE SODIUM INJ 100 MCG/5 ML VIAL 75 MCG IV PUSH (09:47)
--- NOTE | 2022-06-05 11:58 | PM.IMPN ---
Progress Note: A&P Assessment and Plan (1) Acute UTI: Code(s): N39.0 - Urinary tract infection, site not specified Status: Acute Assessment and Plan: UA consistent with UTI in in the setting of fever and sepsis. Patient is not having any urinary retention. He received fluid boluses in empiric antibiotic therapy with Rocephin. Will continue Flomax given history of BPH. 77-year-old male with past medical history of Parkinson's associated dementia, BPH, prior CVA, essential hypertension and hypothyroidism who presented to the ER from home via private vehicle due to not eating and refusing to take his medications.? Source of information is nursing report ER records and past medical records.? The patient is only alert oriented to his name.? He actually does not tell me his name but will open his eyes and intermittently follow commands.? Evidently the patient and his had lived in her own home until January when the patient tripped up some steps and fell having a compression fracture of his L2.? After that time the [facility] was [facility].? After rehab the patient and his moved in with their son where there was no steps at the home.? The patient is chronically confused but has been more confused over the last 3 days.? The family realized that the patient had had a fever this afternoon.? There is no reported the patient having any nausea or vomiting.? At the time of my evaluation the patient was covered up with 7? blankets and skin was hot to touch.? Patient was sweating.? He was occasionally nodding his head her giving verbal responses with mostly negative responses.? His responses were slow and delayed.? He would follow commands with repeat prompting.? He is chronically incontinent of urine.? Bladder scan demonstrated patient was not retaining urine.? He has not been vomiting. 06/05/2022 interval history: unfortunately patient is not able to provide any review of symptoms or history, patient now has NG tube waiting for x-ray results before starting NG tube feeding, consulted dyer and washer, today patient's is here, and received permission to place NG tube for feeding and medications patient needs soft soft restraint to prevent removal of NG tube and self-injury, we have ST work with patient and further recommendation to follow, today patient wants to patient to discharge to [facility], will continue to monitor and further recommendation to follow. Patient urine is growing E coli will continue ceftriaxone and follow up on urine culture and sensitivity. (2) Sepsis: Code(s): A41.9 - Sepsis, unspecified organism Status: Acute Assessment and Plan: Sepsis due to UTI. Sepsis criteria met with fever, tachycardia, and tachypnea. The patient received 1 L normal saline bolus in the ER and was started on maintenance fluids. Blood cultures and urine cultures are pending. Patient was started on empiric antibiotic therapy with Rocephin. Will repeat CBC and BMP in a.m.. Patient also appears intravascularly volume depleted so maintenance fluids have been continued. (3) Generalized weakness: Code(s): R53.1 - Weakness Status: Acute Assessment and Plan: Likely due to sepsis and complicated by the patient's baseline Parkinson's, dementia and recent fall with lumbar compression fracture. Will request PT and OT evaluation once the patient's clinical condition has improved. (4) Altered mental status: Qualifiers: Altered mental status type: delirium Qualified Code(s): R41.0 - Disorientation, unspecified Code(s): R41.82 - Altered mental status, unspecified Status: Acute Assessment and Plan: Most likely due to delirium complicating dementia from sepsis. Given the patient's baseline neurologic deficit and confusion will ask speech therapy to evaluate the patient patient assess for evidence of dysphagia. Will continue to treat
[2022-06-05 14:00] VITALS: BP 171/54; PULSE 91; RESP 20; TEMP 36.8; O2SAT 100
[2022-06-05] MEDS: SODIUM CHLORIDE 0.9% IV 1,000 ML 125 ML IV CONT (17:35)
[2022-06-05] MEDS: cefTRIAXone 2 GM in SODIUM CHLORIDE 0.9% IV 100 ML 200 ML IVPB (18:07)
--- NOTE | 2022-06-05 20:04 | PC.NURSE ---
Pt has been sleeping for the majority of the shift. Pt had NG tube placed this morning. Pt is on Jevity tube feeding with goal rate of 65 and 100 mL flushes q4h. Pt has had no complaints and was monitored this shift for any signs of changes in status.
[2022-06-05] MEDS: LIDOCAINE HCL 2% JELLY 5 ML TUBE 1 APPLIC MUCOUS MEM (20:06)
[2022-06-05 21:39] VITALS: BP 140/77; PULSE 87; RESP 21; TEMP 36.8; O2SAT 100
[2022-06-06] MEDS: SODIUM CHLORIDE 0.9% IV 1,000 ML 125 ML IV CONT ×3 (05:37→21:10)
[2022-06-06] MEDS: LEVOTHYROXINE SODIUM INJ 100 MCG/5 ML VIAL 75 MCG IV PUSH (05:38)
[2022-06-06 06:00] VITALS: BP 150/77; PULSE 87; RESP 21; TEMP 36.5; O2SAT 100
[2022-06-06 06:25] LABS: Hematocrit 32.4 % (42.0-52.0); Hemoglobin 10.6 g/dL (14.0-18.0); Mean Corpuscular HGB Conc 32.7 g/dl (32-36); Mean Corpuscular Hemoglobin 33.9 pg (26-34); Mean Corpuscular Volume 103.5 fl (80-100); Mean Platelet Volume 9.5 fl (7.4-10.4); Platelet Count Result 110 k/mm3 (150-375); Red Blood Count 3.13 M/mm3 (4.6-6.20); Red Cell Distribution Width 13.7 % (11.5-14.5); White Blood Count 6.9 K/mm3 (4.5-10.0)
--- NOTE | 2022-06-06 06:28 | PC.NURSE ---
Patient tolerating TF well and flushings. Increased TF to 35ml/hr for eventual goal of 65ml/hr. Will continue to monitor for any adverse reactions.
[2022-06-06 06:36] LABS: Anion Gap 4 mmol/L (8-16); Blood Urea Nitrogen 10 mg/dL (9-20); Calcium 8.8 mg/dL (8.4-10.2); Carbon Dioxide 29 mmol/L (22-30); Chloride 108 mmol/L (98-107); Estimated CRCL calculation 55 ml/min; Estimated Glomerular Filt Rate > 60; Glucose 137 mg/dL (65-110); Magnesium 1.8 mg/dL (1.6-2.3); Potassium 3.5 mmol/L (3.4-5.0); Sodium 141 mmol/L (137-145)
--- NOTE | 2022-06-06 09:59 | PCOTNOTE ---
Attempted to see pt. for occupational therapy evaluation. Per nursing, pt. has been agitated, violent, and confused during visit. Spoke with hospitalist, who confirmed to wait on evaluating pt due to agitation, cognition, and current ability to safely participate in activity. Following.
[2022-06-06] MEDS: rOPINIRole HCL 1 MG TABLET PO ×2 (11:05→17:30)
[2022-06-06] MEDS: CHOLECALCIFEROL 1,000 UNITS TABLET 5000 UNITS PO (11:05)
[2022-06-06 11:06] VITALS: PULSE 81
[2022-06-06] MEDS: ASPIRIN 81 MG ENTERIC TABLET PO (11:06)
[2022-06-06] MEDS: CARBIDOPA/LEVODOPA 10/100 MG TABLET 1 TABLET PO ×2 (11:06→17:31)
[2022-06-06] MEDS: CYANOCOBALAMIN 1,000 MCG TABLET 1000 MCG PO (11:06)
[2022-06-06] MEDS: TAMSULOSIN HCL 0.4 MG CAPSULE PO (11:06)
[2022-06-06] MEDS: ESCITALOPRAM OXALATE 10 MG TABLET PO (11:06)
[2022-06-06] MEDS: carvediloL 3.125 MG TABLET PO ×2 (11:06→21:10)
--- NOTE | 2022-06-06 11:42 | PCNFU ---
Nutrition Follow-Up Complete: Inability to meet nutrition needs by mouth related to altered mental status, as evidenced by ATHLETIC INSTRUCTOR report. Goal:Tolerate tube feeding at goal rate Meet estimated nutrition needs Pt current nutrition is NPO, tube feeding: Jevity 1.2 @ 35ml/hr, 100ml flush q 4hrs. Nutrition recommendation: Advance to goal rate of 65ml as tolerated Last recorded weight is 58 kg. Bowel Motility: +Bm 06/06 Labs Reviewed: Hgb:10.6, HCT:32.4, Glu:137 Meds Noted: KCL, Colace Skin: WNL Additional Notes: Pt started on tube feedings per recommendation, tolerating well. To advance to goal rate of 65ml/hr and total 1715kcals, 79g protein, 1754ml. Agree with diet orders Monitor tolerance, plan of care, weights, labs, swallowing ability Follow up Sunday and Sunday per policy
[2022-06-06 14:00] VITALS: BP 129/75; PULSE 76; RESP 16; TEMP 36.9; O2SAT 100
--- NOTE | 2022-06-06 14:18 | PM.IMPN ---
Progress Note: A&P Assessment and Plan (1) Acute UTI: Code(s): N39.0 - Urinary tract infection, site not specified Status: Acute Assessment and Plan: UA consistent with UTI in in the setting of fever and sepsis. Patient is not having any urinary retention. He received fluid boluses in empiric antibiotic therapy with Rocephin. Will continue Flomax given history of BPH. 77-year-old male with past medical history of Parkinson's associated dementia, BPH, prior CVA, essential hypertension and hypothyroidism who presented to the ER from home via private vehicle due to not eating and refusing to take his medications.? Source of information is nursing report ER records and past medical records.? The patient is only alert oriented to his name.? He actually does not tell me his name but will open his eyes and intermittently follow commands.? Evidently the patient and his had lived in her own home until January when the patient tripped up some steps and fell having a compression fracture of his L2.? After that time the patient was discharged to [facility] facility [facility].? After rehab the patient and his moved in with their son where there was no steps at the home.? The patient is chronically confused but has been more confused over the last 3 days.? The family realized that the patient had had a fever this afternoon.? There is no reported the patient having any nausea or vomiting.? At the time of my evaluation the patient was covered up with 7? blankets and skin was hot to touch.? Patient was sweating.? He was occasionally nodding his head her giving verbal responses with mostly negative responses.? His responses were slow and delayed.? He would follow commands with repeat prompting.? He is chronically incontinent of urine.? Bladder scan demonstrated patient was not retaining urine.? He has not been vomiting. 06/06/2022 interval history: unfortunately patient is not able to provide any review of symptoms or history, patient now has NG tube started NG tube feeding, consulted reconciliation clerk, Patient is tolerating his NG tube and we have resume his medication via NG, patient remains confused and agitated unable to participate in PT/OT, on 06/06 patient's was here, and received permission to place NG tube for feeding and medications patient needs soft soft restraint to prevent removal of NG tube and self-injury, we have ST work with patient and further recommendation to follow, patient wants to patient to discharge to [facility], will continue to monitor and further recommendation to follow. Patient urine is growing E coli ESBL on / D/W ID pharmacist escalated ceftriaxone 2g IV daily, however patient is resistant to several abx, will start patient on Imipenem and monitor, (2) Sepsis: Code(s): A41.9 - Sepsis, unspecified organism Status: Acute Assessment and Plan: Sepsis due to UTI. Sepsis criteria met with fever, tachycardia, and tachypnea. The patient received 1 L normal saline bolus in the ER and was started on maintenance fluids. Blood cultures and urine cultures are pending. Patient was started on empiric antibiotic therapy with Rocephin. Will repeat CBC and BMP in a.m.. Patient also appears intravascularly volume depleted so maintenance fluids have been continued. (3) Generalized weakness: Code(s): R53.1 - Weakness Status: Acute Assessment and Plan: Likely due to sepsis and complicated by the patient's baseline Parkinson's, dementia and recent fall with lumbar compression fracture. Will request PT and OT evaluation once the patient's clinical condition has improved. (4) Altered mental status: Qualifiers: Altered mental status type: delirium Qualified Code(s): R41.0 - Disorientation, unspecified Code(s): R41.82 - Altered mental status, unspecified Status: Acute Assessment and Plan: Most likely due to delirium complicating dem
--- NOTE | 2022-06-06 15:28 | PCPTNOTE ---
Per hospitalist, hold therapy for today until pt is more alert/oriented. Will follow.
[2022-06-06] MEDS: OXcarbazepine 150 MG TABLET PO (17:30)
[2022-06-06] MEDS: MEMANTINE 5 MG TABLET PO (18:26)
--- NOTE | 2022-06-06 19:15 | PC.NURSE ---
Pt has been resting all day. Pt had tube feeding rate changed today and now is at goal rate. Pt was monitored for any changes in status.
[2022-06-06 21:10] VITALS: PULSE 76
[2022-06-06] MEDS: DONEPEZIL HCL 10 MG TABLET PO (21:10)
[2022-06-06] MEDS: ERTAPENEM 1 GM/NS 50 ML 1 GM/50 ML BAG IVPB (21:10)
[2022-06-06 21:33] VITALS: BP 153/61; PULSE 84; RESP 16; TEMP 36.7; O2SAT 100
[2022-06-07] MEDS: SODIUM CHLORIDE 0.9% IV 1,000 ML 125 ML IV CONT ×2 (00:32→14:08)
[2022-06-07 06:00] VITALS: BP 148/82; PULSE 78; RESP 16; TEMP 36.4; O2SAT 99
[2022-06-07] MEDS: LEVOTHYROXINE SODIUM 100 MCG TABLET PO (06:37)
[2022-06-07] MEDS: LEVOTHYROXINE SODIUM 75 MCG TABLET PO (06:37)
[2022-06-07 06:46] LABS: Hematocrit 30.6 % (42.0-52.0); Immature Platelet Fraction Pct 2.7 % (0.9-11.2); Mean Corpuscular HGB Conc 32.7 g/dl (32-36); Mean Corpuscular Hemoglobin 33.2 pg (26-34); Mean Corpuscular Volume 101.7 fl (80-100); Mean Platelet Volume 9.7 fl (7.4-10.4); Platelet Count Result 115 k/mm3 (150-375); Red Blood Count 3.01 M/mm3 (4.6-6.20); Red Cell Distribution Width 13.6 % (11.5-14.5)
[2022-06-07 07:00] LABS: Anion Gap 5 mmol/L (8-16); Blood Urea Nitrogen 9 mg/dL (9-20); Carbon Dioxide 27 mmol/L (22-30); Chloride 105 mmol/L (98-107); Estimated CRCL calculation 72 ml/min; Estimated Glomerular Filt Rate > 60; Glucose 136 mg/dL (65-110); Magnesium 1.9 mg/dL (1.6-2.3); Potassium 3.5 mmol/L (3.4-5.0); Sodium 137 mmol/L (137-145)
[2022-06-07] MEDS: CARBIDOPA/LEVODOPA 10/100 MG TABLET 1 TABLET PO ×2 (08:25→18:45)
[2022-06-07] MEDS: rOPINIRole HCL 1 MG TABLET PO ×2 (08:26→18:45)
[2022-06-07] MEDS: POTASSIUM CHLORIDE 20 MEQ PACKET (FOR LIQUID) PO (08:26)
[2022-06-07] MEDS: QUEtiapine FUMARATE 12.5 MG TABLET PO (08:26)
[2022-06-07 08:27] VITALS: PULSE 78
[2022-06-07] MEDS: CHOLECALCIFEROL 1,000 UNITS TABLET 5000 UNITS PO (08:27)
[2022-06-07] MEDS: ESCITALOPRAM OXALATE 10 MG TABLET PO (08:27)
[2022-06-07] MEDS: TAMSULOSIN HCL 0.4 MG CAPSULE PO (08:27)
[2022-06-07] MEDS: carvediloL 3.125 MG TABLET PO ×2 (08:27→20:11)
[2022-06-07] MEDS: MONTELUKAST SODIUM 10 MG TABLET PO (08:27)
[2022-06-07] MEDS: MEMANTINE 5 MG TABLET PO ×2 (08:27→18:45)
[2022-06-07] MEDS: CYANOCOBALAMIN 1,000 MCG TABLET 1000 MCG PO (08:27)
[2022-06-07] MEDS: OXcarbazepine 150 MG TABLET PO ×2 (08:27→18:44)
[2022-06-07] MEDS: FERROUS SULFATE LIQUID 325 MG/7.4 ML ELIXIR FEED TUBE (10:26)
[2022-06-07] MEDS: ASPIRIN 81 MG CHEWABLE TABLET FEED TUBE (10:27)
[2022-06-07] MEDS: DOCUSATE SODIUM LIQ 100 MG/10 ML UDC FEED TUBE (10:27)
[2022-06-07] MEDS: TOLTERODINE TARTRATE 1 MG TABLET FEED TUBE ×2 (10:27→20:11)
--- NOTE | 2022-06-07 12:29 | PM.IMPN ---
Progress Note: A&P Assessment and Plan (1) Acute UTI: Code(s): N39.0 - Urinary tract infection, site not specified Status: Acute Assessment and Plan: Now IV ertapenem (2) Sepsis: Code(s): A41.9 - Sepsis, unspecified organism Status: Acute Assessment and Plan: Improving. (3) Generalized weakness: Code(s): R53.1 - Weakness Status: Acute Assessment and Plan: Likely due to sepsis and complicated by the patient's baseline Parkinson's, dementia and recent fall with lumbar compression fracture. Will request PT and OT evaluation once the patient's clinical condition has improved. (4) Altered mental status: Qualifiers: Altered mental status type: delirium Qualified Code(s): R41.0 - Disorientation, unspecified Code(s): R41.82 - Altered mental status, unspecified Status: Acute Assessment and Plan: Most likely due to delirium complicating dementia from sepsis. (5) Hypothyroidism: Qualifiers: Hypothyroidism type: acquired Qualified Code(s): E03.9 - Hypothyroidism, unspecified Code(s): E03.9 - Hypothyroidism, unspecified Status: Acute Assessment and Plan: Will check TSH. Continue home levothyroxine. (6) Megaloblastic anemia: Code(s): D53.1 - Other megaloblastic anemias, not elsewhere classified Status: Acute Assessment and Plan: Monitor (7) Compression fracture of L2: Code(s): S32.020A - Wedge compression fracture of second lumbar vertebra, initial encounter for closed fracture Status: Acute Assessment and Plan: Continue TLSO brace when up out of bed. Plan Patient has been admitted as observation status. Subjective Date/time seen: 06/07/22 12:29 No new complaints Exam Narrative: Patient is comfortable, NAD HEENT: eyes are clear and none icteric LUNGS: normal respiratory effort ABD: not distended Lower extremities: no edema SKIN: nonjaundiced Neuro: grossly intact confused nonverbal. Const: Other: Chronically ill-appearing, frail, elderly, well-nourished HENMT: Other: Head is normocephalic atraumatic, mucous membranes are dry, no oral pharyngeal erythema, upper and lower dentures in place, oral exam limited as the patient is unable open his mouth completely Eyes: Other: Pupils are equal and reactive, evidence of bilateral cataract extraction, no scleral icterus, no pallor Neck: Other: No JVD, trachea midline, patient mostly hold his neck in extension but no reproducible tenderness with flexion but limited range of motion Chest: Other: Pacemaker in the left chest, medial sternotomy scar noted Resp: Other: Clear to auscultation bilaterally, no increased work of breathing Cardio: Other: Regular rate, regular rhythm, 2+ bilateral radial pedal pulses, no JVD GI: Other: Flat, soft, suprapubic tenderness noted, positive bowel sounds, no organomegaly : Other: Incontinent of urine, depends in place Skin: Other: Hot to touch, sweating, no pallor Neuro: Other: Response to name, speech is slow, masked face ease, follows intermittent commands, 5/5 rewinder operator strength of the right hand, cogwheel rigidity in pill-rolling tremor noted Extrem: Other: Cogwheel rigidity in pill-rolling tremor noted, no clubbing, cyanosis or edema Psych: Other: Confused, cooperative, flat affect Objective Data Vital Signs Vital Signs: Vital Signs - 24 hr 06/06/22 14:00 06/06/22 21:10 06/06/22 21:33 Temperature 98.4 F 98.1 F Pulse Rate 76 76 84 Respiratory Rate 16 16 Blood Pressure 129/75 153/61 H Pulse Oximetry 100 100 Oxygen Delivery 06/06/22 20:00 06/07/22 06:00 06/07/22 08:27 Temperature 97.6 F Pulse Rate 78 78 Respiratory Rate 16 Blood Pressure 148/82 H Pulse Oximetry 99 Oxygen Delivery Room Air 06/07/22 08:30 Temperature Pulse Rate Respiratory Rate Blood Pressure Pulse Oxime
[2022-06-07 14:00] VITALS: BP 140/63; PULSE 60; RESP 20; TEMP 36.3; O2SAT 96
--- NOTE | 2022-06-07 14:41 | PCSTNOTE ---
MBS on hold today due to patient lethargy, not sucking through straw, requiring spoon to be placed on lips and even slightly within the mouth to trigger removal and swallows, delayed swallows, unknown risk of aspiration. Will recheck tomorrow morning.
--- NOTE | 2022-06-07 16:41 | PCPTNOTE ---
Attempted PT evaluation, per RN, pt unable to come out of restraints at this time due to pt wanting to pull out NG tube. Per hospitalist note Will request PT and OT evaluation once the patient's clinical condition has improved. Will follow.
[2022-06-07 20:11] VITALS: PULSE 65
[2022-06-07] MEDS: DONEPEZIL HCL 10 MG TABLET PO (20:11)
[2022-06-07] MEDS: ERTAPENEM 1 GM/NS 50 ML 1 GM/50 ML BAG IVPB (20:11)
[2022-06-07] MEDS: FUROSEMIDE INJ 40 MG/4 ML VIAL 20 MG IV PUSH (21:14)
[2022-06-07 22:00] VITALS: BP 150/64; PULSE 81; RESP 20; TEMP 36.5; O2SAT 100
[2022-06-08] MEDS: LEVOTHYROXINE SODIUM INJ 100 MCG/5 ML VIAL 75 MCG IV PUSH (05:50)
[2022-06-08 06:00] VITALS: BP 139/63; PULSE 70; RESP 18; TEMP 36.2; O2SAT 100
[2022-06-08 07:14] LABS: Hematocrit 30.7 % (42.0-52.0); Hemoglobin 10.1 g/dL (14.0-18.0); Mean Corpuscular HGB Conc 32.9 g/dl (32-36); Mean Corpuscular Hemoglobin 32.6 pg (26-34); Mean Platelet Volume 9.9 fl (7.4-10.4); Platelet Count Result 115 k/mm3 (150-375); Red Cell Distribution Width 13.6 % (11.5-14.5); White Blood Count 7.2 K/mm3 (4.5-10.0)
[2022-06-08 07:21] LABS: Anion Gap 5 mmol/L (8-16); Blood Urea Nitrogen 13 mg/dL (9-20); Calcium 8.8 mg/dL (8.4-10.2); Carbon Dioxide 31 mmol/L (22-30); Chloride 103 mmol/L (98-107); Estimated CRCL calculation 62 ml/min; Estimated Glomerular Filt Rate > 60; Glucose 105 mg/dL (65-110); Magnesium 1.8 mg/dL (1.6-2.3); Potassium 3.9 mmol/L (3.4-5.0); Sodium 139 mmol/L (137-145)
[2022-06-08 08:22] VITALS: PULSE 65
[2022-06-08] MEDS: CARBIDOPA/LEVODOPA 10/100 MG TABLET 1 TABLET PO ×2 (08:22→17:07)
[2022-06-08] MEDS: carvediloL 3.125 MG TABLET PO ×2 (08:22→20:44)
[2022-06-08] MEDS: ASPIRIN 81 MG CHEWABLE TABLET FEED TUBE (08:22)
[2022-06-08] MEDS: DOCUSATE SODIUM LIQ 100 MG/10 ML UDC FEED TUBE (08:23)
[2022-06-08] MEDS: CHOLECALCIFEROL 1,000 UNITS TABLET 5000 UNITS PO (08:23)
[2022-06-08] MEDS: CYANOCOBALAMIN 1,000 MCG TABLET 1000 MCG PO (08:23)
[2022-06-08] MEDS: ESCITALOPRAM OXALATE 10 MG TABLET PO (08:24)
[2022-06-08] MEDS: MEMANTINE 5 MG TABLET PO ×2 (08:24→17:07)
[2022-06-08] MEDS: FERROUS SULFATE LIQUID 325 MG/7.4 ML ELIXIR FEED TUBE (08:24)
[2022-06-08] MEDS: MONTELUKAST SODIUM 10 MG TABLET PO (08:24)
[2022-06-08] MEDS: QUEtiapine FUMARATE 12.5 MG TABLET PO (08:25)
[2022-06-08] MEDS: OXcarbazepine 150 MG TABLET PO ×2 (08:25→17:07)
[2022-06-08] MEDS: rOPINIRole HCL 1 MG TABLET PO ×2 (08:25→17:07)
[2022-06-08] MEDS: POTASSIUM CHLORIDE 20 MEQ PACKET (FOR LIQUID) PO (08:25)
[2022-06-08] MEDS: TAMSULOSIN HCL 0.4 MG CAPSULE PO (08:25)
[2022-06-08] MEDS: TOLTERODINE TARTRATE 1 MG TABLET FEED TUBE ×2 (08:28→20:44)
[2022-06-08 10:57] VITALS: BMI 10.0
--- NOTE | 2022-06-08 11:22 | PM.IMPN ---
Progress Note: A&P Assessment and Plan (1) Acute UTI: Code(s): N39.0 - Urinary tract infection, site not specified Status: Acute Assessment and Plan: Now IV ertapenem (2) Sepsis: Code(s): A41.9 - Sepsis, unspecified organism Status: Acute Assessment and Plan: Improving. (3) Generalized weakness: Code(s): R53.1 - Weakness Status: Acute Assessment and Plan: Likely due to sepsis and complicated by the patient's baseline Parkinson's, dementia and recent fall with lumbar compression fracture. Will request PT and OT evaluation once the patient's clinical condition has improved. (4) Altered mental status: Qualifiers: Altered mental status type: delirium Qualified Code(s): R41.0 - Disorientation, unspecified Code(s): R41.82 - Altered mental status, unspecified Status: Acute Assessment and Plan: Most likely due to delirium complicating dementia from sepsis. (5) Hypothyroidism: Qualifiers: Hypothyroidism type: acquired Qualified Code(s): E03.9 - Hypothyroidism, unspecified Code(s): E03.9 - Hypothyroidism, unspecified Status: Acute Assessment and Plan: Will check TSH. Continue home levothyroxine. (6) Megaloblastic anemia: Code(s): D53.1 - Other megaloblastic anemias, not elsewhere classified Status: Acute Assessment and Plan: Monitor (7) Compression fracture of L2: Code(s): S32.020A - Wedge compression fracture of second lumbar vertebra, initial encounter for closed fracture Status: Acute Assessment and Plan: Continue TLSO brace when up out of bed. Plan Lengthy discussion with spouse. Patient would not want PEG tube. Will give a few more days see how he response to IV antibiotics. If no improvement will consider hospice or or that time see where his mental status is. Subjective Date/time seen: 06/08/22 11:22 No new complaints Exam Narrative: Patient is comfortable, NAD HEENT: eyes are clear and none icteric LUNGS: normal respiratory effort ABD: not distended Lower extremities: no edema SKIN: nonjaundiced Neuro: grossly intact confused nonverbal. Objective Data Vital Signs Vital Signs: Vital Signs - 24 hr 06/07/22 14:00 06/07/22 19:53 06/07/22 20:11 Temperature 97.3 F L Pulse Rate 60 65 Respiratory Rate 20 Blood Pressure 140/63 Pulse Oximetry 96 Oxygen Delivery Room Air 06/07/22 22:00 06/08/22 06:00 06/08/22 08:22 Temperature 97.7 F 97.1 F L Pulse Rate 81 70 65 Respiratory Rate 20 18 Blood Pressure 150/64 H 139/63 Pulse Oximetry 100 100 Oxygen Delivery 06/08/22 08:30 Temperature Pulse Rate Respiratory Rate Blood Pressure Pulse Oximetry Oxygen Delivery Room Air Intake/Output Intake/Output: Intake & Output 06/05/22 06/06/22 06/07/22 06/08/22 23:59 23:59 23:59 23:59 Intake Total 1000 3000 3490 0 Output Total 150 1600 Balance 1000 3000 3340 -1600 Meds/Results Medications: Active Medications Generic Name Dose Route Start Last Admin Trade Name Freq PRN Reason Stop Dose Admin Acetaminophen 650 mg 06/07/22 08:41 Acetaminophen Elixir 325 Mg/10.15 Ml Udc FEED TUBE Q4H PRN Mild Pain (1-3) or Fever Aspirin 81 mg 06/07/22 09:00 06/08/22 08:22 Aspirin 81 Mg Chewable Tablet FEED TUBE 81 mg DAILY CARISSA Administration Carbidopa/Levodopa 1 tablet 06/04/22 09:00 06/08/22 08:22 Carbidopa/Levodopa 10/100 Mg Tablet PO 1 tablet BID CARISSA Administration Carvedilol 3.125 mg 06/04/22 02:40 06/08/22 08:22 Carvedilol 3.125 Mg Tablet PO 3.125 mg Q12HR CARISSA Administration Cyanocobalamin 1,000 mcg 06/04/22 09:00 06/08/22 08:23 Cyanocobalamin 1,000 Mcg Tablet PO 1,000 mcg DAILY CARISSA Administration Docusate Sodium 100 mg 06/07/22 09:00 06/08/22 08:23 Docusate Sodium Liq 100 Mg/10 Ml Udc FEED TUBE 100 mg DAILY S
[2022-06-08 14:00] VITALS: BP 136/64; PULSE 80; RESP 16; TEMP 36.2; O2SAT 94
--- NOTE | 2022-06-08 15:24 | PCSTNOTE ---
Modified Barium Swallow study remains on hold as patient remains somewhat lethargic and unable to safely participate. At bedside, swallows were delayed with wet cough noted after thin liquid. It is expected patient will be either unable to participate or not safely pass the Modified Barium Swallow study if attempted today. notified of patient condition. Will try again tomorrow.
[2022-06-08 20:00] VITALS: O2SAT 95
[2022-06-08 20:44] VITALS: PULSE 89
[2022-06-08] MEDS: DONEPEZIL HCL 10 MG TABLET PO (20:45)
[2022-06-08] MEDS: ERTAPENEM 1 GM/NS 50 ML 1 GM/50 ML BAG IVPB (20:45)
[2022-06-08 22:00] VITALS: BP 132/67; PULSE 79; RESP 16; TEMP 36.1; O2SAT 97
[2022-06-09 06:00] VITALS: BP 144/64; PULSE 73; RESP 18; TEMP 36.1; O2SAT 100
[2022-06-09] MEDS: LEVOTHYROXINE SODIUM INJ 100 MCG/5 ML VIAL 75 MCG IV PUSH (06:26)
[2022-06-09 06:58] LABS: Hematocrit 30.6 % (42.0-52.0); Hemoglobin 10.3 g/dL (14.0-18.0); Mean Corpuscular HGB Conc 33.7 g/dl (32-36); Mean Corpuscular Volume 98.1 fl (80-100); Mean Platelet Volume 10.3 fl (7.4-10.4); Platelet Count Result 129 k/mm3 (150-375); Red Blood Count 3.12 M/mm3 (4.6-6.20); Red Cell Distribution Width 13.5 % (11.5-14.5); White Blood Count 7.4 K/mm3 (4.5-10.0)
[2022-06-09 07:10] LABS: Anion Gap 5 mmol/L (8-16); Blood Urea Nitrogen 13 mg/dL (9-20); Calcium 8.9 mg/dL (8.4-10.2); Carbon Dioxide 31 mmol/L (22-30); Chloride 101 mmol/L (98-107); Estimated CRCL calculation 62 ml/min; Estimated Glomerular Filt Rate > 60; Glucose 122 mg/dL (65-110); Magnesium 1.9 mg/dL (1.6-2.3); Sodium 137 mmol/L (137-145)
[2022-06-09] MEDS: CHOLECALCIFEROL 1,000 UNITS TABLET 5000 UNITS PO (09:55)
[2022-06-09] MEDS: OXcarbazepine 150 MG TABLET PO ×2 (09:55→16:16)
[2022-06-09 09:56] VITALS: PULSE 62
[2022-06-09] MEDS: TOLTERODINE TARTRATE 1 MG TABLET FEED TUBE ×2 (09:56→22:04)
[2022-06-09] MEDS: MEMANTINE 5 MG TABLET PO ×2 (09:56→16:16)
[2022-06-09] MEDS: CYANOCOBALAMIN 1,000 MCG TABLET 1000 MCG PO (09:56)
[2022-06-09] MEDS: rOPINIRole HCL 1 MG TABLET PO ×2 (09:56→16:16)
[2022-06-09] MEDS: TAMSULOSIN HCL 0.4 MG CAPSULE PO (09:56)
[2022-06-09] MEDS: carvediloL 3.125 MG TABLET PO ×2 (09:56→22:05)
[2022-06-09] MEDS: ESCITALOPRAM OXALATE 10 MG TABLET PO (09:56)
[2022-06-09] MEDS: MONTELUKAST SODIUM 10 MG TABLET PO (09:57)
[2022-06-09] MEDS: QUEtiapine FUMARATE 12.5 MG TABLET PO (09:57)
[2022-06-09] MEDS: FERROUS SULFATE LIQUID 325 MG/7.4 ML ELIXIR FEED TUBE (09:57)
[2022-06-09] MEDS: DOCUSATE SODIUM LIQ 100 MG/10 ML UDC FEED TUBE (09:57)
[2022-06-09] MEDS: CARBIDOPA/LEVODOPA 10/100 MG TABLET 1 TABLET PO ×2 (09:57→16:16)
[2022-06-09] MEDS: ASPIRIN 81 MG CHEWABLE TABLET FEED TUBE (09:57)
[2022-06-09] MEDS: POTASSIUM CHLORIDE 20 MEQ PACKET (FOR LIQUID) PO (09:58)
--- NOTE | 2022-06-09 10:23 | PCNFU ---
Nutrition Follow-Up Complete: Inability to meet nutrition needs by mouth related to altered mental status, as evidenced by [employer] report. Goal: Tolerate tube feeding at goal rate - Goal being met Meet estimated nutrition needs - Meeting goal about 89% EER (28 kcal/69kg) Pt current nutrition is Jevity 1.2 @ 65 ml h provides 1715 total kacls, 79 g protein, 1754 ml total water with 30 ml flushes q 4 hours. Nutrition recommendation: Continue tube feeding per NG tube. No changes to current orders. Agree with orders. Last recorded weight is 58 kg. Bowel Motility: +3 BMs 06/08/22 Labs Reviewed: Hgb 10.3, Hct 30.6, Glu 122 Meds Noted: Donepzeil; potassium chloride Skin: WNL Additional Notes: Tolerating tube feeding at current goal rate. Plan to re-evaluate in a few days to determine whether to continue with tube feeds. Continue current tube feeding orders. Monitoring Monitor tolerance, plan of care, weights, labs, swallowing ability Follow up Sunday and Sunday per policy
[2022-06-09 10:25] VITALS: BMI 10.0
--- NOTE | 2022-06-09 11:12 | PM.IMPN ---
Progress Note: A&P Assessment and Plan (1) Acute UTI: Code(s): N39.0 - Urinary tract infection, site not specified Status: Acute Assessment and Plan: Now IV ertapenem (2) Sepsis: Code(s): A41.9 - Sepsis, unspecified organism Status: Acute Assessment and Plan: Improving. (3) Generalized weakness: Code(s): R53.1 - Weakness Status: Acute Assessment and Plan: Likely due to sepsis and complicated by the patient's baseline Parkinson's, dementia and recent fall with lumbar compression fracture. Will request PT and OT evaluation once the patient's clinical condition has improved. (4) Altered mental status: Qualifiers: Altered mental status type: delirium Qualified Code(s): R41.0 - Disorientation, unspecified Code(s): R41.82 - Altered mental status, unspecified Status: Acute Assessment and Plan: Most likely due to delirium complicating dementia from sepsis. (5) Hypothyroidism: Qualifiers: Hypothyroidism type: acquired Qualified Code(s): E03.9 - Hypothyroidism, unspecified Code(s): E03.9 - Hypothyroidism, unspecified Status: Acute Assessment and Plan: Will check TSH. Continue home levothyroxine. (6) Megaloblastic anemia: Code(s): D53.1 - Other megaloblastic anemias, not elsewhere classified Status: Acute Assessment and Plan: Monitor (7) Compression fracture of L2: Code(s): S32.020A - Wedge compression fracture of second lumbar vertebra, initial encounter for closed fracture Status: Acute Assessment and Plan: Continue TLSO brace when up out of bed. Plan Lengthy discussion with spouse. Patient would not want PEG tube. Will give a few more days see how he response to IV antibiotics. If no improvement will consider hospice or or that time see where his mental status is. Subjective Date/time seen: 06/09/22 11:12 No complaints Exam Narrative: Patient is comfortable, NAD HEENT: eyes are clear and none icteric LUNGS: normal respiratory effort ABD: not distended Lower extremities: no edema SKIN: nonjaundiced Neuro: grossly intact confused nonverbal. Objective Data Vital Signs Vital Signs: Vital Signs - 24 hr 06/08/22 14:00 06/08/22 20:44 06/08/22 20:00 Temperature 97.1 F L Pulse Rate 80 89 Respiratory Rate 16 Blood Pressure 136/64 Pulse Oximetry 94 95 Oxygen Delivery Room Air 06/08/22 22:00 06/09/22 06:00 06/09/22 09:56 Temperature 96.9 F L 97 F L Pulse Rate 79 73 62 Respiratory Rate 16 18 Blood Pressure 132/67 144/64 H Pulse Oximetry 97 100 Oxygen Delivery Intake/Output Intake/Output: Intake & Output 06/06/22 06/07/22 06/08/22 06/09/22 23:59 23:59 23:59 23:59 Intake Total 3000 3540 1425 1080 Output Total 150 1630 Balance 3000 3390 -205 1080 Meds/Results Medications: Active Medications Generic Name Dose Route Start Last Admin Trade Name Freq PRN Reason Stop Dose Admin Acetaminophen 650 mg 06/07/22 08:41 Acetaminophen Elixir 325 Mg/10.15 Ml Udc FEED TUBE Q4H PRN Mild Pain (1-3) or Fever Aspirin 81 mg 06/07/22 09:00 06/09/22 09:57 Aspirin 81 Mg Chewable Tablet FEED TUBE 81 mg DAILY CARISSA Administration Carbidopa/Levodopa 1 tablet 06/04/22 09:00 06/09/22 09:57 Carbidopa/Levodopa 10/100 Mg Tablet PO 1 tablet BID CARISSA Administration Carvedilol 3.125 mg 06/04/22 02:40 06/09/22 09:56 Carvedilol 3.125 Mg Tablet PO 3.125 mg Q12HR CARISSA Administration Cyanocobalamin 1,000 mcg 06/04/22 09:00 06/09/22 09:56 Cyanocobalamin 1,000 Mcg Tablet PO 1,000 mcg DAILY CARISSA Administration Docusate Sodium 100 mg 06/07/22 09:00 06/09/22 09:57 Docusate Sodium Liq 100 Mg/10 Ml Udc FEED TUBE 100 mg DAILY CARISSA Administration Donepezil HCl 10 mg 06/04/22 21:00 06/08/22 20:45 Donepezil Hcl 10 Mg Tablet PO 10 mg QHS CARISSA
--- NOTE | 2022-06-09 12:43 | PCSTNOTE ---
Therapist has consulted with RADHA Daniels, throughout the day concerning patient's ability to awaken and possibly participate in a formal evaluation of his swallowing. RN reported that patient has not really awakened except briefly. Therapist discussed this with physician who is allowing discontinuation of the order for Modified Barium Swallow (MBS) study at this time. New order for MBS may be placed whenever patient becomes awake and alert enough to participate. Thank you for this referral.
[2022-06-09 14:00] VITALS: BP 133/65; PULSE 74; RESP 14; TEMP 37.2; O2SAT 97
--- NOTE | 2022-06-09 14:34 | PC.NURSE ---
Pt has been resting in bed with head of bed locked at 30 degrees. Pt had NG tube in L nare. Pt continues to be restrained with soft wrist restraints. Pt is A&O to self. Pt is tolerating tube feeding well and is at goal rate of 65 with q4h 100 mL flush. Pt was at bedside this shift. Will continue to monitor pt for any changes in status.
[2022-06-09 21:28] VITALS: BP 147/63; PULSE 79; RESP 16; TEMP 36.4; O2SAT 99
[2022-06-09] MEDS: ERTAPENEM 1 GM/NS 50 ML 1 GM/50 ML BAG IVPB (22:03)
[2022-06-09] MEDS: DONEPEZIL HCL 10 MG TABLET PO (22:06)
[2022-06-09] MEDS: ACETAMINOPHEN ELIXIR 325 MG/10.15 ML UDC 650 MG FEED TUBE (22:15)
[2022-06-10] MEDS: LEVOTHYROXINE SODIUM INJ 100 MCG/5 ML VIAL 75 MCG IV PUSH (05:39)
[2022-06-10 06:00] VITALS: BP 142/58; PULSE 74; RESP 16; TEMP 36.9; O2SAT 100
[2022-06-10 06:27] LABS: Hematocrit 31.7 % (42.0-52.0); Hemoglobin 10.3 g/dL (14.0-18.0); Mean Corpuscular HGB Conc 32.5 g/dl (32-36); Mean Corpuscular Hemoglobin 32.9 pg (26-34); Mean Corpuscular Volume 101.3 fl (80-100); Mean Platelet Volume 10.4 fl (7.4-10.4); Platelet Count Result 165 k/mm3 (150-375); Red Blood Count 3.13 M/mm3 (4.6-6.20); Red Cell Distribution Width 13.4 % (11.5-14.5)
[2022-06-10 07:03] LABS: Anion Gap 3 mmol/L (8-16); Blood Urea Nitrogen 13 mg/dL (9-20); Calcium 8.9 mg/dL (8.4-10.2); Carbon Dioxide 31 mmol/L (22-30); Chloride 96 mmol/L (98-107); Estimated CRCL calculation 72 ml/min; Estimated Glomerular Filt Rate > 60; Glucose 141 mg/dL (65-110); Potassium 4.2 mmol/L (3.4-5.0); Sodium 130 mmol/L (137-145)
[2022-06-10] MEDS: ASPIRIN 81 MG CHEWABLE TABLET FEED TUBE (08:45)
[2022-06-10] MEDS: TOLTERODINE TARTRATE 1 MG TABLET FEED TUBE ×2 (08:45→19:55)
[2022-06-10] MEDS: FERROUS SULFATE LIQUID 325 MG/7.4 ML ELIXIR FEED TUBE (08:45)
[2022-06-10] MEDS: ESCITALOPRAM OXALATE 10 MG TABLET PO (08:45)
[2022-06-10] MEDS: CHOLECALCIFEROL 1,000 UNITS TABLET 5000 UNITS PO (08:45)
[2022-06-10] MEDS: QUEtiapine FUMARATE 12.5 MG TABLET PO (08:45)
[2022-06-10] MEDS: CARBIDOPA/LEVODOPA 10/100 MG TABLET 1 TABLET PO ×2 (08:46→17:25)
[2022-06-10] MEDS: OXcarbazepine 150 MG TABLET PO ×2 (08:46→17:23)
[2022-06-10] MEDS: rOPINIRole HCL 1 MG TABLET PO ×2 (08:46→17:25)
[2022-06-10] MEDS: carvediloL 3.125 MG TABLET PO ×2 (08:46→19:55)
[2022-06-10] MEDS: MEMANTINE 5 MG TABLET PO ×2 (08:46→17:24)
[2022-06-10] MEDS: TAMSULOSIN HCL 0.4 MG CAPSULE PO (08:46)
[2022-06-10] MEDS: CYANOCOBALAMIN 1,000 MCG TABLET 1000 MCG PO (08:46)
[2022-06-10] MEDS: MONTELUKAST SODIUM 10 MG TABLET PO (08:46)
[2022-06-10] MEDS: POTASSIUM CHLORIDE 20 MEQ PACKET (FOR LIQUID) PO (08:48)
--- NOTE | 2022-06-10 10:35 | PM.IMPN ---
Progress Note: A&P Assessment and Plan (1) Acute UTI: Code(s): N39.0 - Urinary tract infection, site not specified Status: Acute Assessment and Plan: IV ertapenem (2) Sepsis: Code(s): A41.9 - Sepsis, unspecified organism Status: Acute Assessment and Plan: Improving. (3) Generalized weakness: Code(s): R53.1 - Weakness Status: Acute Assessment and Plan: Likely due to sepsis and complicated by the patient's baseline Parkinson's, dementia and recent fall with lumbar compression fracture. Will request PT and OT evaluation once the patient's clinical condition has improved. (4) Altered mental status: Qualifiers: Altered mental status type: delirium Qualified Code(s): R41.0 - Disorientation, unspecified Code(s): R41.82 - Altered mental status, unspecified Status: Acute Assessment and Plan: Most likely due to delirium complicating dementia from sepsis. (5) Hypothyroidism: Qualifiers: Hypothyroidism type: acquired Qualified Code(s): E03.9 - Hypothyroidism, unspecified Code(s): E03.9 - Hypothyroidism, unspecified Status: Acute Assessment and Plan: Will check TSH. Continue home levothyroxine. (6) Megaloblastic anemia: Code(s): D53.1 - Other megaloblastic anemias, not elsewhere classified Status: Acute Assessment and Plan: Monitor (7) Compression fracture of L2: Code(s): S32.020A - Wedge compression fracture of second lumbar vertebra, initial encounter for closed fracture Status: Acute Assessment and Plan: Continue TLSO brace when up out of bed. Plan Lengthy discussion with spouse. Patient would not want PEG tube. Will give a few more days see how he response to IV antibiotics. If no improvement will consider hospice or or that time see where his mental status is. Subjective Date/time seen: 06/10/22 10:35 No new complaints, patient is more alert today Exam Narrative: Patient is comfortable, NAD HEENT: eyes are clear and none icteric LUNGS: normal respiratory effort ABD: not distended Lower extremities: no edema SKIN: nonjaundiced Neuro: grossly intact confused nonverbal. Objective Data Vital Signs Vital Signs: Vital Signs - 24 hr 06/09/22 14:00 06/09/22 21:28 06/10/22 06:00 Temperature 99 F 97.6 F 98.4 F Pulse Rate 74 79 74 Respiratory Rate 14 16 16 Blood Pressure 133/65 147/63 H 142/58 H Pulse Oximetry 97 99 100 Intake/Output Intake/Output: Intake & Output 06/07/22 06/08/22 06/09/22 06/10/22 23:59 23:59 23:59 23:59 Intake Total 3540 1475 1080 Output Total 150 1630 Balance 3390 -155 1080 Meds/Results Medications: Active Medications Generic Name Dose Route Start Last Admin Trade Name Freq PRN Reason Stop Dose Admin Acetaminophen 650 mg 06/07/22 08:41 06/09/22 22:15 Acetaminophen Elixir 325 Mg/10.15 Ml Udc FEED TUBE 650 mg Q4H PRN Administration Mild Pain (1-3) or Fever Aspirin 81 mg 06/07/22 09:00 06/10/22 08:45 Aspirin 81 Mg Chewable Tablet FEED TUBE 81 mg DAILY CARISSA Administration Carbidopa/Levodopa 1 tablet 06/04/22 09:00 06/10/22 08:46 Carbidopa/Levodopa 10/100 Mg Tablet PO 1 tablet BID CARISSA Administration Carvedilol 3.125 mg 06/04/22 02:40 06/10/22 08:46 Carvedilol 3.125 Mg Tablet PO 3.125 mg Q12HR CARISSA Administration Cyanocobalamin 1,000 mcg 06/04/22 09:00 06/10/22 08:46 Cyanocobalamin 1,000 Mcg Tablet PO 1,000 mcg DAILY CARISSA Administration Docusate Sodium 100 mg 06/07/22 09:00 06/10/22 08:49 Docusate Sodium Liq 100 Mg/10 Ml Udc FEED TUBE Not Given DAILY CARISSA Donepezil HCl 10 mg 06/04/22 21:00 06/09/22 22:06 Donepezil Hcl 10 Mg Tablet PO 10 mg QHS CARISSA Administration Escitalopram Oxalate 10 mg 06/04/22 09:00 06/10/22 08:45 Escitalopram Oxalate 10 Mg Tablet PO 10 mg DAILY CARISSA Administrat
[2022-06-10 14:00] VITALS: BP 140/59; PULSE 74; RESP 16; TEMP 36.3; O2SAT 100
[2022-06-10 19:55] VITALS: PULSE 76
[2022-06-10] MEDS: DONEPEZIL HCL 10 MG TABLET PO (19:55)
[2022-06-10] MEDS: ERTAPENEM 1 GM/NS 50 ML 1 GM/50 ML BAG IVPB (20:10)
[2022-06-10 22:00] VITALS: BP 135/61; PULSE 81; RESP 18; TEMP 36.4; O2SAT 100
--- NOTE | 2022-06-11 03:05 | PC.NURSE ---
Daylight Savings Time For Daylight Savings Time Ending in the Fall - Clocks are moved back. For Daylight Savings Time Beginning in the Spring - Clocks are moved ahead. For [facility], the time of change occurs at 0200 hrs. Time is taken from the hotel server. This entry on the patient's chart recognizes the change in time reflected during documentation. Example: 2 entries for vital signs may be charted for 0200 hrs.
[2022-06-11] MEDS: LEVOTHYROXINE SODIUM INJ 100 MCG/5 ML VIAL 75 MCG IV PUSH (05:34)
[2022-06-11 06:00] VITALS: BP 152/84; PULSE 60; RESP 20; TEMP 36.6; O2SAT 97
[2022-06-11 06:58] LABS: Anion Gap 4 mmol/L (8-16); Blood Urea Nitrogen 15 mg/dL (9-20); Calcium 9.1 mg/dL (8.4-10.2); Carbon Dioxide 32 mmol/L (22-30); Chloride 95 mmol/L (98-107); Estimated CRCL calculation 72 ml/min; Estimated Glomerular Filt Rate > 60; Glucose 119 mg/dL (65-110); Hematocrit 33.1 % (42.0-52.0); Hemoglobin 10.9 g/dL (14.0-18.0); Magnesium 2.1 mg/dL (1.6-2.3); Mean Corpuscular HGB Conc 32.9 g/dl (32-36); Mean Corpuscular Hemoglobin 32.7 pg (26-34); Mean Corpuscular Volume 99.4 fl (80-100); Mean Platelet Volume 10.2 fl (7.4-10.4); Platelet Count Result 209 k/mm3 (150-375); Potassium 4.4 mmol/L (3.4-5.0); Red Blood Count 3.33 M/mm3 (4.6-6.20); Red Cell Distribution Width 13.3 % (11.5-14.5); Sodium 131 mmol/L (137-145); White Blood Count 8.2 K/mm3 (4.5-10.0)
[2022-06-11] MEDS: CYANOCOBALAMIN 1,000 MCG TABLET 1000 MCG PO (08:08)
[2022-06-11] MEDS: OXcarbazepine 150 MG TABLET PO ×2 (08:08→17:49)
[2022-06-11] MEDS: ESCITALOPRAM OXALATE 10 MG TABLET PO (08:08)
[2022-06-11] MEDS: FERROUS SULFATE LIQUID 325 MG/7.4 ML ELIXIR FEED TUBE (08:08)
[2022-06-11] MEDS: MONTELUKAST SODIUM 10 MG TABLET PO (08:08)
[2022-06-11] MEDS: QUEtiapine FUMARATE 12.5 MG TABLET PO (08:08)
[2022-06-11] MEDS: TAMSULOSIN HCL 0.4 MG CAPSULE PO (08:08)
[2022-06-11] MEDS: ASPIRIN 81 MG CHEWABLE TABLET FEED TUBE (08:09)
[2022-06-11] MEDS: TOLTERODINE TARTRATE 1 MG TABLET FEED TUBE ×2 (08:09→20:15)
[2022-06-11] MEDS: rOPINIRole HCL 1 MG TABLET PO ×2 (08:09→17:49)
[2022-06-11] MEDS: CHOLECALCIFEROL 1,000 UNITS TABLET 5000 UNITS PO (08:09)
[2022-06-11] MEDS: CARBIDOPA/LEVODOPA 10/100 MG TABLET 1 TABLET PO ×2 (08:09→17:49)
[2022-06-11] MEDS: MEMANTINE 5 MG TABLET PO ×2 (08:09→17:49)
[2022-06-11 08:10] VITALS: PULSE 65
[2022-06-11] MEDS: POTASSIUM CHLORIDE 20 MEQ PACKET (FOR LIQUID) PO (08:10)
[2022-06-11] MEDS: carvediloL 3.125 MG TABLET PO ×2 (08:10→20:15)
--- NOTE | 2022-06-11 11:36 | PM.IMPN ---
Progress Note: A&P Assessment and Plan (1) Acute UTI: Code(s): N39.0 - Urinary tract infection, site not specified Status: Acute Assessment and Plan: IV ertapenem (2) Sepsis: Code(s): A41.9 - Sepsis, unspecified organism Status: Acute Assessment and Plan: Improving. (3) Generalized weakness: Code(s): R53.1 - Weakness Status: Acute Assessment and Plan: Likely due to sepsis and complicated by the patient's baseline Parkinson's, dementia and recent fall with lumbar compression fracture. Will request PT and OT evaluation once the patient's clinical condition has improved. (4) Altered mental status: Qualifiers: Altered mental status type: delirium Qualified Code(s): R41.0 - Disorientation, unspecified Code(s): R41.82 - Altered mental status, unspecified Status: Acute Assessment and Plan: Most likely due to delirium complicating dementia from sepsis. (5) Hypothyroidism: Qualifiers: Hypothyroidism type: acquired Qualified Code(s): E03.9 - Hypothyroidism, unspecified Code(s): E03.9 - Hypothyroidism, unspecified Status: Acute Assessment and Plan: Will check TSH. Continue home levothyroxine. (6) Megaloblastic anemia: Code(s): D53.1 - Other megaloblastic anemias, not elsewhere classified Status: Acute Assessment and Plan: Monitor (7) Compression fracture of L2: Code(s): S32.020A - Wedge compression fracture of second lumbar vertebra, initial encounter for closed fracture Status: Acute Assessment and Plan: Continue TLSO brace when up out of bed. Plan Lengthy discussion with spouse. Patient would not want PEG tube. Will give a few more days see how he response to IV antibiotics. If no improvement will consider hospice or or that time see where his mental status is. Subjective Date/time seen: 06/11/22 11:36 no new issues Exam Narrative: Patient is comfortable, NAD HEENT: eyes are clear and none icteric LUNGS: normal respiratory effort ABD: not distended Lower extremities: no edema SKIN: nonjaundiced Neuro: grossly intact confused nonverbal. Const: Other: Chronically ill-appearing, frail, elderly, well-nourished HENMT: Other: Head is normocephalic atraumatic, mucous membranes are dry, no oral pharyngeal erythema, upper and lower dentures in place, oral exam limited as the patient is unable open his mouth completely Eyes: Other: Pupils are equal and reactive, evidence of bilateral cataract extraction, no scleral icterus, no pallor Neck: Other: No JVD, trachea midline, patient mostly hold his neck in extension but no reproducible tenderness with flexion but limited range of motion Chest: Other: Pacemaker in the left chest, medial sternotomy scar noted Resp: Other: Clear to auscultation bilaterally, no increased work of breathing Cardio: Other: Regular rate, regular rhythm, 2+ bilateral radial pedal pulses, no JVD GI: Other: Flat, soft, suprapubic tenderness noted, positive bowel sounds, no organomegaly : Other: Incontinent of urine, depends in place Skin: Other: Hot to touch, sweating, no pallor Neuro: Other: Response to name, speech is slow, masked face ease, follows intermittent commands, 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
[2022-06-11 11:46] LABS: Glucose Point of Care 115 mg/dl (65-105)
[2022-06-11 14:00] VITALS: BP 126/62; PULSE 73; RESP 18; TEMP 37.3; O2SAT 100
[2022-06-11 18:41] LABS: Glucose Point of Care 111 mg/dl (65-105)
[2022-06-11] MEDS: DONEPEZIL HCL 10 MG TABLET PO (20:15)
[2022-06-11] MEDS: ERTAPENEM 1 GM/NS 50 ML 1 GM/50 ML BAG IVPB (20:19)
[2022-06-11 20:39] VITALS: BP 143/66; PULSE 91; RESP 20; TEMP 36.4; O2SAT 76
[2022-06-12 00:38] LABS: Glucose Point of Care 129 mg/dl (65-105)
[2022-06-12 04:36] VITALS: BP 132/66; PULSE 74; RESP 20; TEMP 35.8; O2SAT 92
[2022-06-12] MEDS: LEVOTHYROXINE SODIUM INJ 100 MCG/5 ML VIAL 75 MCG IV PUSH (05:14)
[2022-06-12 06:20] LABS: Glucose Point of Care 131 mg/dl (65-105)
[2022-06-12 07:17] LABS: Hematocrit 36.4 % (42.0-52.0); Hemoglobin 11.9 g/dL (14.0-18.0); Mean Corpuscular HGB Conc 32.7 g/dl (32-36); Mean Corpuscular Hemoglobin 32.4 pg (26-34); Mean Corpuscular Volume 99.2 fl (80-100); Mean Platelet Volume 10.1 fl (7.4-10.4); Platelet Count Result 245 k/mm3 (150-375); Red Blood Count 3.67 M/mm3 (4.6-6.20); Red Cell Distribution Width 13.2 % (11.5-14.5); White Blood Count 7.7 K/mm3 (4.5-10.0)
[2022-06-12 07:34] LABS: Anion Gap 7 mmol/L (8-16); Blood Urea Nitrogen 16 mg/dL (9-20); Calcium 9.3 mg/dL (8.4-10.2); Carbon Dioxide 30 mmol/L (22-30); Chloride 98 mmol/L (98-107); Estimated CRCL calculation 72 ml/min; Estimated Glomerular Filt Rate > 60; Glucose 114 mg/dL (65-110); Magnesium 2.2 mg/dL (1.6-2.3); Potassium 4.5 mmol/L (3.4-5.0); Sodium 135 mmol/L (137-145)
[2022-06-12] MEDS: CHOLECALCIFEROL 1,000 UNITS TABLET 5000 UNITS PO (08:31)
[2022-06-12] MEDS: MONTELUKAST SODIUM 10 MG TABLET PO (08:31)
[2022-06-12] MEDS: CARBIDOPA/LEVODOPA 10/100 MG TABLET 1 TABLET PO ×2 (08:32→17:36)
[2022-06-12] MEDS: MEMANTINE 5 MG TABLET PO ×2 (08:32→17:36)
[2022-06-12] MEDS: rOPINIRole HCL 1 MG TABLET PO ×2 (08:32→17:37)
[2022-06-12] MEDS: CYANOCOBALAMIN 1,000 MCG TABLET 1000 MCG PO (08:32)
[2022-06-12] MEDS: TOLTERODINE TARTRATE 1 MG TABLET FEED TUBE ×2 (08:32→21:19)
[2022-06-12] MEDS: OXcarbazepine 150 MG TABLET PO ×2 (08:32→17:36)
[2022-06-12 08:33] VITALS: PULSE 70
[2022-06-12] MEDS: carvediloL 3.125 MG TABLET PO ×2 (08:33→20:19)
[2022-06-12] MEDS: ASPIRIN 81 MG CHEWABLE TABLET FEED TUBE (08:33)
[2022-06-12] MEDS: QUEtiapine FUMARATE 12.5 MG TABLET PO (08:33)
[2022-06-12] MEDS: TAMSULOSIN HCL 0.4 MG CAPSULE PO (08:33)
[2022-06-12] MEDS: FERROUS SULFATE LIQUID 325 MG/7.4 ML ELIXIR FEED TUBE (08:34)
[2022-06-12] MEDS: ESCITALOPRAM OXALATE 10 MG TABLET PO (08:34)
[2022-06-12] MEDS: POTASSIUM CHLORIDE 20 MEQ PACKET (FOR LIQUID) PO (08:34)
--- NOTE | 2022-06-12 11:56 | PM.IMPN ---
Progress Note: A&P Assessment and Plan (1) Acute UTI: Code(s): N39.0 - Urinary tract infection, site not specified Status: Acute Assessment and Plan: IV ertapenem (2) Sepsis: Code(s): A41.9 - Sepsis, unspecified organism Status: Acute Assessment and Plan: Improving. (3) Generalized weakness: Code(s): R53.1 - Weakness Status: Acute Assessment and Plan: Likely due to sepsis and complicated by the patient's baseline Parkinson's, dementia and recent fall with lumbar compression fracture. Will request PT and OT evaluation once the patient's clinical condition has improved. (4) Altered mental status: Qualifiers: Altered mental status type: delirium Qualified Code(s): R41.0 - Disorientation, unspecified Code(s): R41.82 - Altered mental status, unspecified Status: Acute Assessment and Plan: Most likely due to delirium complicating dementia from sepsis. (5) Hypothyroidism: Qualifiers: Hypothyroidism type: acquired Qualified Code(s): E03.9 - Hypothyroidism, unspecified Code(s): E03.9 - Hypothyroidism, unspecified Status: Acute Assessment and Plan: Will check TSH. Continue home levothyroxine. (6) Megaloblastic anemia: Code(s): D53.1 - Other megaloblastic anemias, not elsewhere classified Status: Acute Assessment and Plan: Monitor (7) Compression fracture of L2: Code(s): S32.020A - Wedge compression fracture of second lumbar vertebra, initial encounter for closed fracture Status: Acute Assessment and Plan: Continue TLSO brace when up out of bed. Plan Lengthy discussion with spouse. Patient would not want PEG tube. Will give a few more days see how he response to IV antibiotics. If no improvement will consider hospice or or that time see where his mental status is. Subjective Date/time seen: 06/12/22 11:56 Still alert today. Exam Narrative: Patient is comfortable, NAD HEENT: eyes are clear and none icteric LUNGS: normal respiratory effort ABD: not distended Lower extremities: no edema SKIN: nonjaundiced Neuro: grossly intact confused nonverbal. Objective Data Vital Signs Vital Signs: Vital Signs - 24 hr 06/11/22 14:00 06/11/22 20:39 06/11/22 20:00 Temperature 99.1 F 97.6 F Pulse Rate 73 91 Respiratory Rate 18 20 Blood Pressure 126/62 143/66 H Pulse Oximetry 100 76 L Oxygen Delivery Room Air 06/12/22 04:36 06/12/22 08:33 Temperature 96.5 F L Pulse Rate 74 70 Respiratory Rate 20 Blood Pressure 132/66 Pulse Oximetry 92 Oxygen Delivery Intake/Output Intake/Output: Intake & Output 06/09/22 06/10/22 06/11/22 06/12/22 22:59 22:59 23:59 23:59 Intake Total 0 Output Total 1650 Balance -1650 Meds/Results Medications: Active Medications Generic Name Dose Route Start Last Admin Trade Name Freq PRN Reason Stop Dose Admin Acetaminophen 650 mg 06/07/22 08:41 06/09/22 22:15 Acetaminophen Elixir 325 Mg/10.15 Ml Udc FEED TUBE 650 mg Q4H PRN Administration Mild Pain (1-3) or Fever Aspirin 81 mg 06/07/22 09:00 06/12/22 08:33 Aspirin 81 Mg Chewable Tablet FEED TUBE 81 mg DAILY CARISSA Administration Carbidopa/Levodopa 1 tablet 06/04/22 09:00 06/12/22 08:32 Carbidopa/Levodopa 10/100 Mg Tablet PO 1 tablet BID CARISSA Administration Carvedilol 3.125 mg 06/04/22 02:40 06/12/22 08:33 Carvedilol 3.125 Mg Tablet PO 3.125 mg Q12HR CARISSA Administration Cyanocobalamin 1,000 mcg 06/04/22 09:00 06/12/22 08:32 Cyanocobalamin 1,000 Mcg Tablet PO 1,000 mcg DAILY CARISSA Administration Docusate Sodium 100 mg 06/07/22 09:00 06/12/22 08:31 Docusate Sodium Liq 100 Mg/10 Ml Udc FEED TUBE Not Given DAILY CARISSA Donepezil HCl 10 mg 06/04/22 21:00 06/11/22 20:15 Donepezil Hcl 10 Mg Tablet PO 10 mg QHS CARISSA Administration Escitalopr
--- NOTE | 2022-06-12 13:41 | PCSTNOTE ---
MODIFIED BARIUM SWALLOW Study could not fully be completed. Patient entered the radiology room upright and awake. When offered sips of liquid contrast medium per spoon, patient stated, That is not fit for consumption. Therapist then offered a bite of pudding, stating it was just pudding however patient again refused. He refused per cup. Therapist enlisted the aid of the medical technologist clinical who set him up for test and he refused several consistencies for her. Testing attempt was terminated. Dr. Woodall was notified that he refused testing procedure however should he resume oral feeding, that Pureed Diet with Mildly Thick Liquids would be safest consistencies until it is shown that he is avoiding clinical signs of aspiration. Diet and Liquid consistencies can then be advanced as tolerated. Nursing also notified of results and recommendations.
[2022-06-12 14:00] VITALS: BP 124/74; PULSE 70; RESP 20; TEMP 36.2; O2SAT 100
[2022-06-12 18:31] LABS: Glucose Point of Care 106 mg/dl (65-105)
[2022-06-12 19:41] VITALS: O2SAT 100
[2022-06-12] MEDS: DONEPEZIL HCL 10 MG TABLET PO (20:19)
[2022-06-12 20:50] VITALS: BP 126/72; PULSE 75; RESP 16; TEMP 36.4; O2SAT 99
[2022-06-12] MEDS: ERTAPENEM 1 GM/NS 50 ML 1 GM/50 ML BAG IVPB (21:19)
[2022-06-13 00:39] LABS: Glucose Point of Care 101 mg/dl (65-105)
--- NOTE | 2022-06-13 04:38 | PC.NURSE ---
pt refused any PO intake this shift
[2022-06-13 04:43] VITALS: BP 141/69; PULSE 70; RESP 14; TEMP 35.9; O2SAT 96
[2022-06-13] MEDS: LEVOTHYROXINE SODIUM INJ 100 MCG/5 ML VIAL 75 MCG IV PUSH (05:50)
[2022-06-13 06:46] LABS: Hematocrit 32.7 % (42.0-52.0); Hemoglobin 10.8 g/dL (14.0-18.0); Mean Corpuscular Hemoglobin 33.3 pg (26-34); Mean Corpuscular Volume 100.9 fl (80-100); Mean Platelet Volume 9.8 fl (7.4-10.4); Platelet Count Result 266 k/mm3 (150-375); Red Blood Count 3.24 M/mm3 (4.6-6.20); Red Cell Distribution Width 13.2 % (11.5-14.5); White Blood Count 8.8 K/mm3 (4.5-10.0)
[2022-06-13 06:59] LABS: Anion Gap 3 mmol/L (8-16); Blood Urea Nitrogen 17 mg/dL (9-20); Calcium 9.3 mg/dL (8.4-10.2); Carbon Dioxide 32 mmol/L (22-30); Chloride 95 mmol/L (98-107); Estimated CRCL calculation 62 ml/min; Estimated Glomerular Filt Rate > 60; Glucose 94 mg/dL (65-110); Magnesium 2.1 mg/dL (1.6-2.3); Potassium 4.3 mmol/L (3.4-5.0); Sodium 130 mmol/L (137-145)
[2022-06-13] MEDS: TOLTERODINE TARTRATE 1 MG TABLET FEED TUBE ×2 (08:21→20:46)
[2022-06-13] MEDS: OXcarbazepine 150 MG TABLET PO ×2 (08:21→17:13)
[2022-06-13] MEDS: ASPIRIN 81 MG CHEWABLE TABLET FEED TUBE (08:21)
[2022-06-13] MEDS: QUEtiapine FUMARATE 12.5 MG TABLET PO (08:21)
[2022-06-13] MEDS: CYANOCOBALAMIN 1,000 MCG TABLET 1000 MCG PO (08:21)
[2022-06-13 08:22] VITALS: PULSE 75
[2022-06-13] MEDS: carvediloL 3.125 MG TABLET PO ×2 (08:22→20:46)
[2022-06-13] MEDS: CARBIDOPA/LEVODOPA 10/100 MG TABLET 1 TABLET PO ×2 (08:23→17:12)
[2022-06-13] MEDS: MEMANTINE 5 MG TABLET PO ×2 (08:23→17:13)
[2022-06-13] MEDS: ESCITALOPRAM OXALATE 10 MG TABLET PO (08:23)
[2022-06-13] MEDS: POTASSIUM CHLORIDE 20 MEQ PACKET (FOR LIQUID) PO (08:23)
[2022-06-13] MEDS: MONTELUKAST SODIUM 10 MG TABLET PO (08:23)
[2022-06-13] MEDS: TAMSULOSIN HCL 0.4 MG CAPSULE PO (08:23)
[2022-06-13] MEDS: rOPINIRole HCL 1 MG TABLET PO ×2 (08:23→17:13)
[2022-06-13] MEDS: FERROUS SULFATE LIQUID 325 MG/7.4 ML ELIXIR FEED TUBE (08:24)
[2022-06-13] MEDS: CHOLECALCIFEROL 1,000 UNITS TABLET 5000 UNITS PO (08:24)
--- NOTE | 2022-06-13 10:52 | PM.IMPN ---
Progress Note: A&P Assessment and Plan (1) Acute UTI: Code(s): N39.0 - Urinary tract infection, site not specified Status: Acute Assessment and Plan: Patient has completed IV ertapenem. (2) Sepsis: Code(s): A41.9 - Sepsis, unspecified organism Status: Acute Assessment and Plan: Improving. (3) Generalized weakness: Code(s): R53.1 - Weakness Status: Acute Assessment and Plan: Patient has history of underlying dementia and parkinsonism which is likely the main component of this. (4) Altered mental status: Qualifiers: Altered mental status type: delirium Qualified Code(s): R41.0 - Disorientation, unspecified Code(s): R41.82 - Altered mental status, unspecified Status: Acute Assessment and Plan: Baseline he does have some altered mental status secondary to his chronic neurologic issues. Patient was worse with sepsis now improved a little bit. (5) Hypothyroidism: Qualifiers: Hypothyroidism type: acquired Qualified Code(s): E03.9 - Hypothyroidism, unspecified Code(s): E03.9 - Hypothyroidism, unspecified Status: Acute Assessment and Plan: Will check TSH. Continue home levothyroxine. (6) Megaloblastic anemia: Code(s): D53.1 - Other megaloblastic anemias, not elsewhere classified Status: Acute Assessment and Plan: Monitor (7) Compression fracture of L2: Code(s): S32.020A - Wedge compression fracture of second lumbar vertebra, initial encounter for closed fracture Status: Acute Assessment and Plan: Continue TLSO brace when up out of bed. Plan Lengthy discussion with spouse. Patient and family would not want PEG tube. Improved some. Will give another day to see how he improves and consider stopping NG tube if taking in enough oral. Subjective Date/time seen: 06/13/22 10:52 Patient is eating some. Ate about 20-30% of his breakfast. Still having some some swallowing issues. NG tube is in place for tube feeds Exam Narrative: Patient is comfortable, NAD HEENT: eyes are clear and none icteric LUNGS: normal respiratory effort ABD: not distended Lower extremities: no edema SKIN: nonjaundiced Neuro: grossly intact confused nonverbal. Objective Data Vital Signs Vital Signs: Vital Signs - 24 hr 06/12/22 14:00 06/12/22 19:41 06/12/22 20:50 Temperature 97.1 F L 97.6 F Pulse Rate 70 75 Respiratory Rate 20 16 Blood Pressure 124/74 126/72 Pulse Oximetry 100 100 99 Oxygen Delivery Room Air 06/13/22 04:43 06/13/22 08:22 Temperature 96.6 F L Pulse Rate 70 75 Respiratory Rate 14 Blood Pressure 141/69 H Pulse Oximetry 96 Oxygen Delivery Intake/Output Intake/Output: Intake & Output 06/10/22 06/11/22 06/12/22 06/13/22 22:59 23:59 23:59 23:59 Intake Total 20 50 Output Total 1750 250 Balance -1730 -200 Meds/Results Medications: Active Medications Generic Name Dose Route Start Last Admin Trade Name Freq PRN Reason Stop Dose Admin Acetaminophen 650 mg 06/07/22 08:41 06/09/22 22:15 Acetaminophen Elixir 325 Mg/10.15 Ml Udc FEED TUBE 650 mg Q4H PRN Administration Mild Pain (1-3) or Fever Aspirin 81 mg 06/07/22 09:00 06/13/22 08:21 Aspirin 81 Mg Chewable Tablet FEED TUBE 81 mg DAILY CARISSA Administration Carbidopa/Levodopa 1 tablet 06/04/22 09:00 06/13/22 08:23 Carbidopa/Levodopa 10/100 Mg Tablet PO 1 tablet BID CARISSA Administration Carvedilol 3.125 mg 06/04/22 02:40 06/13/22 08:22 Carvedilol 3.125 Mg Tablet PO 3.125 mg Q12HR CARISSA Administration Cyanocobalamin 1,000 mcg 06/04/22 09:00 06/13/22 08:21 Cyanocobalamin 1,000 Mcg Tablet PO 1,000 mcg DAILY CARISSA Administration Docusate Sodium 100 mg 06/07/22 09:00 06/13/22 08:24 Docusate Sodium Liq 100 Mg/10 Ml Udc FEED TUBE Not Given DAILY CARISSA Donepezil HCl 10 mg 06/04/22 21:00 03
--- NOTE | 2022-06-13 11:17 | PCNFU ---
Nutrition Follow-Up Complete: Inability to meet nutrition needs by mouth related to altered mental status, as evidenced by [facility] report. Goal:Tolerate tube feeding at goal rate Meet estimated nutrition needs Pt current nutrition is Pureed level 4 diet, level 2 liquids. Tube feedings: Jevity 1.2 at 65ml/hr to provide 1716kcals, 79g protein. Nutrition recommendation: Continue with current plan of care, Add Ensure compact TID w/ meals to provide an additional 220kcals, 9g protein/shake Last recorded weight is 58 kg. Bowel Motility: +BM 06/12 Labs Reviewed: Hgb:10.8, HCT:32.7, NA:130 Meds Noted: colace, KCL Skin: WNL Additional Notes: Pt continues on tube feeds for nutrition support, has advanced to pureed diet with level 2 liquids. Noted did not complete MBS, [facility] rec for diet consistency for safety. Intake 25% average. Family is not wanting a PEG placed. Recommend to add Ensure compact TID w/meals to increase caloric intake. Monitor tolerance, plan of care, weights, labs, swallowing ability Follow up Sunday and Sunday per policy
--- NOTE | 2022-06-13 11:21 | PCOTNOTE ---
Attempted to see Patient this A.M. Patient refused to participate, having increased confusion per RN.
[2022-06-13 12:25] LABS: Glucose Point of Care 101 mg/dl (65-105)
[2022-06-13 14:00] VITALS: BP 112/70; PULSE 74; RESP 16; TEMP 36.2; O2SAT 100
[2022-06-13 18:07] LABS: Glucose Point of Care 88 mg/dl (65-105)
[2022-06-13 20:00] VITALS: PULSE 95; RESP 16; O2SAT 91
[2022-06-13 20:02] VITALS: BP 133/75; PULSE 95; RESP 16; TEMP 36.2; O2SAT 91
[2022-06-13] MEDS: DONEPEZIL HCL 10 MG TABLET PO (20:46)
[2022-06-13 21:01] LABS: Glucose Point of Care 78 mg/dl (65-105)
[2022-06-13 22:29] LABS: Glucose Point of Care 96 mg/dl (65-105)
[2022-06-14 05:32] VITALS: BP 142/68; PULSE 86; RESP 16; TEMP 36.2; O2SAT 98
[2022-06-14] MEDS: LEVOTHYROXINE SODIUM INJ 100 MCG/5 ML VIAL 75 MCG IV PUSH (05:57)
[2022-06-14 06:44] LABS: Hematocrit 33.9 % (42.0-52.0); Hemoglobin 11.5 g/dL (14.0-18.0); Mean Corpuscular HGB Conc 33.9 g/dl (32-36); Mean Corpuscular Hemoglobin 32.8 pg (26-34); Mean Corpuscular Volume 96.6 fl (80-100); Mean Platelet Volume 9.8 fl (7.4-10.4); Platelet Count Result 348 k/mm3 (150-375); Red Blood Count 3.51 M/mm3 (4.6-6.20); White Blood Count 11.1 K/mm3 (4.5-10.0)
[2022-06-14 06:51] LABS: Glucose Point of Care 96 mg/dl (65-105)
[2022-06-14 07:05] LABS: Anion Gap 6 mmol/L (8-16); Blood Urea Nitrogen 16 mg/dL (9-20); Calcium 9.5 mg/dL (8.4-10.2); Carbon Dioxide 29 mmol/L (22-30); Chloride 95 mmol/L (98-107); Estimated CRCL calculation 62 ml/min; Estimated Glomerular Filt Rate > 60; Glucose 99 mg/dL (65-110); Magnesium 2.2 mg/dL (1.6-2.3); Potassium 4.3 mmol/L (3.4-5.0); Sodium 130 mmol/L (137-145)
[2022-06-14 11:30] VITALS: PULSE 86
[2022-06-14] MEDS: CARBIDOPA/LEVODOPA 10/100 MG TABLET 1 TABLET PO ×2 (11:30→17:54)
[2022-06-14] MEDS: carvediloL 3.125 MG TABLET PO ×2 (11:30→22:00)
[2022-06-14] MEDS: rOPINIRole HCL 1 MG TABLET PO ×2 (11:31→17:54)
[2022-06-14] MEDS: MEMANTINE 5 MG TABLET PO ×2 (11:31→17:54)
[2022-06-14] MEDS: OXcarbazepine 150 MG TABLET PO ×2 (11:31→17:54)
[2022-06-14] MEDS: ESCITALOPRAM OXALATE 10 MG TABLET PO (11:31)
[2022-06-14] MEDS: QUEtiapine FUMARATE 12.5 MG TABLET PO (11:31)
[2022-06-14 12:18] LABS: Glucose Point of Care 96 mg/dl (65-105)
--- NOTE | 2022-06-14 13:02 | P.PNIM_ITS ---
Progress Note: A&P Assessment and Plan (1) Acute UTI: Code(s): N39.0 - Urinary tract infection, site not specified Status: Acute Assessment and Plan: Patient has completed IV ertapenem. (2) Sepsis: Code(s): A41.9 - Sepsis, unspecified organism Status: Acute Assessment and Plan: Improving. (3) Generalized weakness: Code(s): R53.1 - Weakness Status: Acute Assessment and Plan: Patient has history of underlying dementia and parkinsonism which is likely the main component of this. (4) Altered mental status: Qualifiers: Altered mental status type: delirium Qualified Code(s): R41.0 - Disorientation, unspecified Code(s): R41.82 - Altered mental status, unspecified Status: Acute Assessment and Plan: Baseline he does have some altered mental status secondary to his chronic neurologic issues. Patient was worse with sepsis now improved a little bit. (5) Hypothyroidism: Qualifiers: Hypothyroidism type: acquired Qualified Code(s): E03.9 - Hypothyroidism, unspecified Code(s): E03.9 - Hypothyroidism, unspecified Status: Acute Assessment and Plan: Will check TSH. Continue home levothyroxine. (6) Megaloblastic anemia: Code(s): D53.1 - Other megaloblastic anemias, not elsewhere classified Status: Acute Assessment and Plan: Monitor (7) Compression fracture of L2: Code(s): S32.020A - Wedge compression fracture of second lumbar vertebra, initial encounter for closed fracture Status: Acute Assessment and Plan: Continue TLSO brace when up out of bed. Plan (1) Acute UTI: Patient has completed IV ertapenem (2) Sepsis: Improving. (3) Generalized weakness: Patient has history of underlying dementia and parkinsonism which is likely the main component of this. (4) Altered mental status: Baseline he does have some altered mental status secondary to his chronic neurologic issues.? Patient was worse with sepsis now improved a little bit. (5) Hypothyroidism: Will check TSH.? Continue home levothyroxine. (6) Megaloblastic anemia: Monitor (7) Compression fracture of L2: Continue TLSO brace when up out of bed. Plan Lengthy discussion with spouse.? Patient and family would not want PEG tube.? Improved some.? Will give another day to see how he improves and consider stopping NG tube if taking in enough oral. Awaiting placement Subjective Date/time seen: 06/14/22 13:02 Review of Systems Review of Systems: ROS unobtainable: Yes unobtainable due to medical condition (Dementia) and unobtainable due to mental status Exam Narrative: Patient is comfortable, NAD HEENT: eyes are clear and none icteric LUNGS: normal respiratory effort ABD: not distended Lower extremities: no edema SKIN: nonjaundiced Neuro: grossly intact confused nonverbal. Const: Other: Chronically ill-appearing, frail, elderly, well-nourished HENMT: Other: Head is normocephalic atraumatic, mucous membranes are dry, no oral pharyngeal erythema, upper and lower dentures in place, oral exam limited as the patient is unable open his mouth completely Eyes: Other: Pupils are equal and reactive, evidence of bilateral cataract extraction, no scleral icterus, no pallor Neck: Other: No JVD, trachea midline, patient mostly ho
[2022-06-14 14:00] VITALS: BP 107/58; PULSE 80; RESP 18; TEMP 36.9; O2SAT 99
[2022-06-14 17:55] LABS: Glucose Point of Care 96 mg/dl (65-105)
[2022-06-14 22:00] VITALS: BP 106/66; PULSE 80; PULSE 81; RESP 20; TEMP 36.6; O2SAT 93
[2022-06-14] MEDS: DONEPEZIL HCL 10 MG TABLET PO (22:00)
[2022-06-14] MEDS: TOLTERODINE TARTRATE 1 MG TABLET FEED TUBE (22:00)
[2022-06-15 03:58] LABS: Glucose Point of Care 86 mg/dl (65-105)
[2022-06-15 06:00] VITALS: BP 137/62; PULSE 73; RESP 18; TEMP 36.2; O2SAT 100
[2022-06-15 06:25] LABS: Glucose Point of Care 84 mg/dl (65-105)
[2022-06-15 10:49] VITALS: PULSE 62
[2022-06-15] MEDS: CARBIDOPA/LEVODOPA 10/100 MG TABLET 1 TABLET PO ×2 (10:49→17:05)
[2022-06-15] MEDS: carvediloL 3.125 MG TABLET PO ×2 (10:49→21:01)
[2022-06-15] MEDS: ESCITALOPRAM OXALATE 10 MG TABLET PO (10:50)
[2022-06-15] MEDS: MEMANTINE 5 MG TABLET PO ×2 (10:51→17:05)
[2022-06-15] MEDS: rOPINIRole HCL 1 MG TABLET PO ×2 (10:52→17:05)
[2022-06-15] MEDS: QUEtiapine FUMARATE 12.5 MG TABLET PO (10:52)
[2022-06-15] MEDS: OXcarbazepine 150 MG TABLET PO ×2 (10:53→17:05)
[2022-06-15] MEDS: MONTELUKAST SODIUM 10 MG TABLET PO (10:54)
[2022-06-15] MEDS: TOLTERODINE TARTRATE 1 MG TABLET FEED TUBE ×2 (10:54→21:01)
[2022-06-15] MEDS: TAMSULOSIN HCL 0.4 MG CAPSULE PO (10:54)
[2022-06-15] MEDS: CYANOCOBALAMIN 1,000 MCG TABLET 1000 MCG PO (10:54)
[2022-06-15] MEDS: ASPIRIN 81 MG CHEWABLE TABLET FEED TUBE (10:54)
[2022-06-15 12:10] LABS: Glucose Point of Care 99 mg/dl (65-105)
--- NOTE | 2022-06-15 12:30 | PM.IMPN ---
Progress Note: A&P Assessment and Plan (1) Acute UTI: Code(s): N39.0 - Urinary tract infection, site not specified Status: Acute Assessment and Plan: Patient has completed IV ertapenem. (2) Sepsis: Code(s): A41.9 - Sepsis, unspecified organism Status: Acute Assessment and Plan: Improving. (3) Generalized weakness: Code(s): R53.1 - Weakness Status: Acute Assessment and Plan: Patient has history of underlying dementia and parkinsonism which is likely the main component of this. (4) Altered mental status: Qualifiers: Altered mental status type: delirium Qualified Code(s): R41.0 - Disorientation, unspecified Code(s): R41.82 - Altered mental status, unspecified Status: Acute Assessment and Plan: Baseline he does have some altered mental status secondary to his chronic neurologic issues. Patient was worse with sepsis now improved a little bit. (5) Hypothyroidism: Qualifiers: Hypothyroidism type: acquired Qualified Code(s): E03.9 - Hypothyroidism, unspecified Code(s): E03.9 - Hypothyroidism, unspecified Status: Acute Assessment and Plan: Will check TSH. Continue home levothyroxine. (6) Megaloblastic anemia: Code(s): D53.1 - Other megaloblastic anemias, not elsewhere classified Status: Acute Assessment and Plan: Monitor (7) Compression fracture of L2: Code(s): S32.020A - Wedge compression fracture of second lumbar vertebra, initial encounter for closed fracture Status: Acute Assessment and Plan: Continue TLSO brace when up out of bed. Plan (1) Acute UTI: Patient has completed IV ertapenem (2) Sepsis: Improving. (3) Generalized weakness: Patient has history of underlying dementia and parkinsonism which is likely the main component of this. (4) Altered mental status: Baseline he does have some altered mental status secondary to his chronic neurologic issues.? Patient was worse with sepsis now improved a little bit. (5) Hypothyroidism: Will check TSH.? Continue home levothyroxine. (6) Megaloblastic anemia: Monitor (7) Compression fracture of L2: Continue TLSO brace when up out of bed. Plan Lengthy discussion with spouse.? Patient and family would not want PEG tube.? Improved some.? Will give another day to see how he improves and consider stopping NG tube if taking in enough oral. Awaiting placement tomorrow per residential care officer Subjective Date/time seen: 06/15/22 12:30 Review of Systems Review of Systems: ROS unobtainable: Yes unobtainable due to medical condition (Dementia) and unobtainable due to mental status Exam Narrative: Patient is comfortable, NAD HEENT: eyes are clear and none icteric LUNGS: normal respiratory effort ABD: not distended Lower extremities: no edema SKIN: nonjaundiced Neuro: grossly intact confused nonverbal. 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
[2022-06-15 14:00] VITALS: BP 114/53; PULSE 67; RESP 16; TEMP 35.8; O2SAT 93
[2022-06-15 18:03] LABS: Glucose Point of Care 75 mg/dl (65-105)
[2022-06-15 20:00] VITALS: PULSE 67; RESP 18; O2SAT 100
[2022-06-15 20:54] VITALS: O2SAT 99
[2022-06-15] MEDS: DONEPEZIL HCL 10 MG TABLET PO (21:01)
[2022-06-15 22:00] VITALS: BP 130/80; PULSE 67; RESP 18; TEMP 36; O2SAT 100
[2022-06-15] MEDS: DEXTROSE 50% 25 GM/50 ML SYRINGE IV PUSH (22:54)
[2022-06-16 00:43] LABS: Glucose Point of Care 102 mg/dl (65-105)
[2022-06-16 00:43] LABS: Glucose Point of Care 55 mg/dl (65-105)
[2022-06-16 06:00] VITALS: BP 124/78; PULSE 94; RESP 16; TEMP 36.4; O2SAT 87
[2022-06-16] MEDS: DEXTROSE 50% 25 GM/50 ML SYRINGE IV PUSH ×3 (06:32→12:16)
[2022-06-16 08:00] VITALS: PULSE 81; RESP 18; O2SAT 96
[2022-06-16 08:11] LABS: Glucose Point of Care 61 mg/dl (65-105)
[2022-06-16] MEDS: QUEtiapine FUMARATE 12.5 MG TABLET PO (08:44)
[2022-06-16] MEDS: ESCITALOPRAM OXALATE 10 MG TABLET PO (08:44)
[2022-06-16] MEDS: rOPINIRole HCL 1 MG TABLET PO (08:44)
[2022-06-16] MEDS: carvediloL 3.125 MG TABLET PO ×2 (08:44→20:36)
[2022-06-16] MEDS: ASPIRIN 81 MG CHEWABLE TABLET FEED TUBE (08:44)
[2022-06-16] MEDS: TOLTERODINE TARTRATE 1 MG TABLET FEED TUBE ×2 (08:44→20:36)
[2022-06-16] MEDS: TAMSULOSIN HCL 0.4 MG CAPSULE PO (08:44)
[2022-06-16] MEDS: POTASSIUM CHLORIDE 20 MEQ PACKET (FOR LIQUID) PO (08:54)
[2022-06-16 09:11] LABS: Glucose Point of Care 87 mg/dl (65-105)
--- NOTE | 2022-06-16 11:07 | PC.NURSE ---
I was attempting to give pt his morning meds, which have to be crushed, but he was refusing. The OT therapist came into the room and witnessed the entire interaction. I was able to persuade pt to take one big bite of the meds (crushed in apple sauce) which he took but I was not able to get him to take any more bites. As a result, I was only able to get some of the meds passed. Pt adamantly refused to take any more meds after that.
--- NOTE | 2022-06-16 11:32 | PM.IMPN ---
Progress Note: A&P Assessment and Plan (1) Acute UTI: Code(s): N39.0 - Urinary tract infection, site not specified Status: Acute Assessment and Plan: Patient has completed IV ertapenem. (2) Sepsis: Code(s): A41.9 - Sepsis, unspecified organism Status: Acute Assessment and Plan: Improving. (3) Generalized weakness: Code(s): R53.1 - Weakness Status: Acute Assessment and Plan: Patient has history of underlying dementia and parkinsonism which is likely the main component of this. (4) Altered mental status: Qualifiers: Altered mental status type: delirium Qualified Code(s): R41.0 - Disorientation, unspecified Code(s): R41.82 - Altered mental status, unspecified Status: Acute Assessment and Plan: Baseline he does have some altered mental status secondary to his chronic neurologic issues. Patient was worse with sepsis now improved a little bit. (5) Hypothyroidism: Qualifiers: Hypothyroidism type: acquired Qualified Code(s): E03.9 - Hypothyroidism, unspecified Code(s): E03.9 - Hypothyroidism, unspecified Status: Acute Assessment and Plan: Will check TSH. Continue home levothyroxine. (6) Megaloblastic anemia: Code(s): D53.1 - Other megaloblastic anemias, not elsewhere classified Status: Acute Assessment and Plan: Monitor (7) Compression fracture of L2: Code(s): S32.020A - Wedge compression fracture of second lumbar vertebra, initial encounter for closed fracture Status: Acute Assessment and Plan: Continue TLSO brace when up out of bed. Plan (1) Acute UTI: Patient has completed IV ertapenem (2) Sepsis: Improving. Hypoglycemia likely from poor intake, although appetite has improved from admission. Ensure ordered, dietitian monitor (3) Generalized weakness: Patient has history of underlying dementia and parkinsonism which is likely the main component of this. (4) Altered mental status, improving Baseline he does have some altered mental status secondary to his chronic neurologic issues.? Patient was worse with sepsis now improved a little bit. (5) Hypothyroidism: Will check TSH.? Continue home levothyroxine. (6) Megaloblastic anemia: Monitor (7) Compression fracture of L2: Continue TLSO brace when up out of bed. Plan Lengthy discussion with spouse.? Patient and family would not want PEG tube.? Improved some.? If he continues to be hypoglycemia will consider hospice care since patient and family declined PEG tube Will hold off discharge today Subjective Date/time seen: 06/16/22 11:32 Yana is comfortable at bedside, however has been having hypoglycemia overnight, even as nurse noted that he has improved in his intake from admission. Will hold discharge today while we monitor him. Review of Systems Review of Systems: ROS unobtainable: Yes unobtainable due to medical condition (Dementia) and unobtainable due to mental status Exam Narrative: Patient is comfortable, NAD HEENT: eyes are clear and none icteric LUNGS: normal respiratory effort ABD: not distended Lower extremities: no edema SKIN: nonjaundiced Neuro: grossly intact confused nonverbal. 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
[2022-06-16 12:16] LABS: Glucose Point of Care 56 mg/dl (65-105)
[2022-06-16 12:32] LABS: Glucose Point of Care 111 mg/dl (65-105)
--- NOTE | 2022-06-16 13:23 | PCNFU ---
Nutrition Follow-Up Complete: Inability to meet nutrition needs by mouth related to altered mental status, as evidenced by [employer] report. Tolerate tube feeding at goal rate - Not meeting goal, pt pulled NG out Meet estimated nutrition needs - Not able to meet goal, refusing PO intake Goal: Pt current nutrition is Puree diet, mildly thick liquids, Ensure Compact TID. 0-75, Refusing supplements Nutrition recommendation: Restart tube feedings with new NG or place a PEG tube if family agrees. Last recorded weight is 58 kg. No recent weights since admit weight. Needs to be weighed Bowel Motility: Last BM 06/12 Labs Reviewed: Hgb 11.5, Hct 33.9, Na 130, Glu 55-111 Meds Noted: Donepezil, namenda, levodopa Skin: WNL Additional Notes: MD consult for poor intake and hypoglycemia. Pt pulled out NG tube so tube feedings are stopped. He is refusing PO intake of food and supplements. Family is declining a PEG tube and hospice. Pt is on several medications with known side effects of loss of appetite and weight loss: donepezil, levodopa, namenda. An appetite stimulant such as marinol might be one option. However pt has known late-stage dementia and studies are mixed with effectiveness re: marinol in this setting. Recommendation is to re-start NG feedings or place a PEG for tube feedings if family agrees. Monitor tolerance, plan of care, weights, labs, swallowing ability Follow up every 3 days
[2022-06-16 14:00] VITALS: BP 94/81; PULSE 65; RESP 16; TEMP 36; O2SAT 99
[2022-06-16 15:39] LABS: Glucose Point of Care 94 mg/dl (65-105)
[2022-06-16 18:47] LABS: Glucose Point of Care 79 mg/dl (65-105)
[2022-06-16 20:00] VITALS: O2SAT 99
[2022-06-16] MEDS: DEXTROSE 5% 1,000 ML 1,000 ML 100 ML IVPB (20:00)
[2022-06-16] MEDS: DONEPEZIL HCL 10 MG TABLET PO (20:35)
[2022-06-16 20:36] VITALS: PULSE 70
[2022-06-16 22:00] VITALS: BP 155/126; PULSE 78; RESP 14; TEMP 36.3; O2SAT 100
[2022-06-16 23:27] LABS: Glucose Point of Care 77 mg/dl (65-105)
[2022-06-17 05:10] VITALS: BP 121/73; PULSE 64; RESP 14; TEMP 36.3; O2SAT 100
[2022-06-17 05:31] LABS: Glucose Point of Care 114 mg/dl (65-105)
[2022-06-17] MEDS: LEVOTHYROXINE SODIUM INJ 100 MCG/5 ML VIAL 75 MCG IV PUSH (05:32)
[2022-06-17 07:14] LABS: Basophils Percent Auto 0.4 % (0.2-1.2); Eosinophils Absolute Auto 0.1 K/mm3 (0-0.3); Eosinophils Percent Auto 1.2 % (0-4.4); Hematocrit 33.9 % (42.0-52.0); Hemoglobin 11.3 g/dL (14.0-18.0); Immature Granulocyte Absolute 0.12 K/mm3 (0.00-0.031); Immature Granulocyte Percent A 1.5 % (0-0.5); Lymphocytes Absolute Auto 1.19 K/mm3 (0.9-3.2); Lymphocytes Percent Auto 14.7 % (18.3-44.2); Mean Corpuscular HGB Conc 33.3 g/dl (32-36); Mean Corpuscular Hemoglobin 32.6 pg (26-34); Mean Corpuscular Volume 97.7 fl (80-100); Mean Platelet Volume 8.8 fl (7.4-10.4); Monocytes Percent Auto 12.5 % (2.6-8.5); Neutrophils Absolute Auto 5.6 K/mm3 (1.3-6.7); Neutrophils Percent Auto 69.7 % (45.5-73.1); Platelet Count Result 386 k/mm3 (150-375); Red Blood Count 3.47 M/mm3 (4.6-6.20); Red Cell Distribution Width 13.1 % (11.5-14.5); White Blood Count 8.1 K/mm3 (4.5-10.0)
[2022-06-17 07:27] LABS: Alanine Aminotransferase 39 U/L (6-50); Albumin Level 3.6 g/dL (3.5-5.1); Alkaline Phosphatase 71 U/L (38-126); Anion Gap 2 mmol/L (8-16); Aspartate Amino Transferase 29 U/L (17-59); Bilirubin,Total 0.7 mg/dL (0.2-1.3); Blood Urea Nitrogen 12 mg/dL (9-20); Calcium 9.2 mg/dL (8.4-10.2); Carbon Dioxide 33 mmol/L (22-30); Chloride 98 mmol/L (98-107); Estimated CRCL calculation 55 ml/min; Estimated Glomerular Filt Rate > 60; Glucose 107 mg/dL (65-110); Sodium 133 mmol/L (137-145)
[2022-06-17] MEDS: FERROUS SULFATE LIQUID 325 MG/7.4 ML ELIXIR FEED TUBE (08:22)
[2022-06-17] MEDS: ASPIRIN 81 MG CHEWABLE TABLET FEED TUBE (08:22)
[2022-06-17] MEDS: TOLTERODINE TARTRATE 1 MG TABLET FEED TUBE (08:22)
[2022-06-17] MEDS: DOCUSATE SODIUM LIQ 100 MG/10 ML UDC FEED TUBE (08:22)
[2022-06-17] MEDS: ESCITALOPRAM OXALATE 10 MG TABLET PO (08:22)
[2022-06-17] MEDS: CARBIDOPA/LEVODOPA 10/100 MG TABLET 1 TABLET PO (08:22)
[2022-06-17] MEDS: MONTELUKAST SODIUM 10 MG TABLET PO (08:22)
[2022-06-17] MEDS: TAMSULOSIN HCL 0.4 MG CAPSULE PO (08:22)
[2022-06-17] MEDS: MEMANTINE 5 MG TABLET PO (08:22)
[2022-06-17] MEDS: CHOLECALCIFEROL 1,000 UNITS TABLET 5000 UNITS PO (08:23)
[2022-06-17] MEDS: OXcarbazepine 150 MG TABLET PO (08:23)
[2022-06-17] MEDS: rOPINIRole HCL 1 MG TABLET PO (08:23)
[2022-06-17] MEDS: QUEtiapine FUMARATE 12.5 MG TABLET PO (08:23)
[2022-06-17] MEDS: POTASSIUM CHLORIDE 20 MEQ PACKET (FOR LIQUID) PO (08:23)
[2022-06-17] MEDS: carvediloL 3.125 MG TABLET PO (08:23)
[2022-06-17] MEDS: CYANOCOBALAMIN 1,000 MCG TABLET 1000 MCG PO (08:23)
[2022-06-17 11:15] LABS: Glucose Point of Care 99 mg/dl (65-105)
--- NOTE | 2022-06-17 12:07 | PM.DS ---
DS: Admitting Diagnosis Discharge Date 06/17/22 Admitting Diagnosis Sepsis UTI DS: Discharge Diagnosis Discharge Diagnosis (1) Acute UTI: Code(s): N39.0 - Urinary tract infection, site not specified Status: Acute Assessment and Plan: Patient has completed IV ertapenem. (2) Sepsis: Code(s): A41.9 - Sepsis, unspecified organism Status: Acute Assessment and Plan: Improving. (3) Generalized weakness: Code(s): R53.1 - Weakness Status: Acute Assessment and Plan: Patient has history of underlying dementia and parkinsonism which is likely the main component of this. (4) Altered mental status: Qualifiers: Altered mental status type: delirium Qualified Code(s): R41.0 - Disorientation, unspecified Code(s): R41.82 - Altered mental status, unspecified Status: Acute Assessment and Plan: Baseline he does have some altered mental status secondary to his chronic neurologic issues. Patient was worse with sepsis now improved a little bit. (5) Hypothyroidism: Qualifiers: Hypothyroidism type: acquired Qualified Code(s): E03.9 - Hypothyroidism, unspecified Code(s): E03.9 - Hypothyroidism, unspecified Status: Acute Assessment and Plan: Will check TSH. Continue home levothyroxine. (6) Megaloblastic anemia: Code(s): D53.1 - Other megaloblastic anemias, not elsewhere classified Status: Acute Assessment and Plan: Monitor (7) Compression fracture of L2: Code(s): S32.020A - Wedge compression fracture of second lumbar vertebra, initial encounter for closed fracture Status: Acute Assessment and Plan: Continue TLSO brace when up out of bed. Plan (1) Acute UTI: Patient has completed IV ertapenem (2) Sepsis: Improving. Hypoglycemia likely from poor intake, although appetite has improved from admission. Ensure ordered, dietitian monitor (3) Generalized weakness: Patient has history of underlying dementia and parkinsonism which is likely the main component of this. (4) Altered mental status, improving Baseline he does have some altered mental status secondary to his chronic neurologic issues.? Patient was worse with sepsis now improved a little bit. (5) Hypothyroidism: Will check TSH.? Continue home levothyroxine. (6) Megaloblastic anemia: Monitor (7) Compression fracture of L2: Continue TLSO brace when up out of bed. DS: Summary Hospital Course Hospital Course: Patient managed for UTI with sepsis, completed urine culture was positve for ESBL and was treated with Ertapenem. Patient is taking PO now, consideration was given to tube feeds but both patient and family declined. Patient discharged to SNF to follow iwth pCP in 3-5 days. Time Spent with Patient Time attestation: Total time spent providing and/or coordinating discharge services: Exam Narrative: Patient is comfortable, NAD HEENT: eyes are clear and none icteric LUNGS: normal respiratory effort ABD: not distended Lower extremities: no edema SKIN: nonjaundiced Neuro: grossly intact confused nonverbal. 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
[2022-06-17 12:55] LABS: EDCOVIDSCREEN Negative (Negative)
== END 2022-06-17 15:55 | DRG 872 ==
LOC: ANHED 22:46 → ANH3MEDSUR 06-04 00:18
PROVIDERS: Family Medicine; Admitting Provider Internal Medicine; Emergency Provider Emergency Medicine; PCP Internal Medicine; Visit Provider Internal Medicine
DX: A41.51 Sepsis due to Escherichia coli [E. coli] (principal); S32.020A Wedge compression fracture of second lumbar vertebra, initial encounter for closed fracture; N39.0 Urinary tract infection, site not specified; Z16.12 Extended spectrum beta lactamase (ESBL) resistance; W10.9XXA Fall (on) (from) unspecified stairs and steps, initial encounter; Z20.822 Contact with and (suspected) exposure to COVID-19; E03.9 Hypothyroidism, unspecified; D53.1 Other megaloblastic anemias, not elsewhere classified; E16.2 Hypoglycemia, unspecified; G20 Parkinson's disease; F02.80 Dementia in other diseases classified elsewhere, unspecified severity, without behavioral disturbance, psychotic disturbance, mood disturbance, and anxiety; N40.0 Benign prostatic hyperplasia without lower urinary tract symptoms; R13.10 Dysphagia, unspecified; G25.81 Restless legs syndrome; M47.816 Spondylosis without myelopathy or radiculopathy, lumbar region; M48.061 Spinal stenosis, lumbar region without neurogenic claudication; R32 Unspecified urinary incontinence; R41.0 Disorientation, unspecified; Z95.0 Presence of cardiac pacemaker; Z86.73 Personal history of transient ischemic attack (TIA), and cerebral infarction without residual deficits; Z85.46 Personal history of malignant neoplasm of prostate; Z95.1 Presence of aortocoronary bypass graft; Z98.42 Cataract extraction status, left eye; Z98.41 Cataract extraction status, right eye; Z96.1 Presence of intraocular lens
CPT/HCPCS: 36415; 51701; 70450; 71045; 80048; 80053; 81001; 82607; 82746; 82948; 83605; 83735; 84145; 84439; 84443; 84484; 85025; 85027; 85055; 85610; 85730; 87040; 87077; 87086; 87088; 87186; 87426; 87637; 92610; 93005; 96361; 96365; 96366; 96367; 96372; 96375; 96376; 97110; 97162; 97165; 97530; 97535; 99285; A9270; C9803; G0378; J0131; J0696; J0743; J1335; J1940; J7030; J7070